=== PATIENT | male | born 1955 | race Caucasian/White ===

== ENCOUNTER 2018-08-20 05:32 | Inpatient (IN) | payer MEDICARE ==
--- NOTE | 2018-08-10 13:38 | HP ---
PREOPERATIVE HISTORY AND PHYSICAL: DATE OF ADMISSION/SURGERY: 08/20/18 ATTENDING PHYSICIAN: Dr. Sybil Avelar.* (DICTATED BY MOOSE BELL) CHIEF COMPLAINT: Right knee pain. HISTORY OF PRESENT ILLNESS: The patient is a 63-year-old male, who underwent right total knee arthroplasty on 11/15/[address] Sybil Avelar. The patient had done fairly well up until the last several months when he developed increased knee pain anteriorly. 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 The patient discussed these findings with Dr. Avelar today and has elected to proceed with revision patellar surgery with Dr. Avelar on 08/20/18 at [facility]. PAST MEDICAL HISTORY: Significant for GERD, hypertension, myasthenia gravis. PAST SURGICAL HISTORY: He has had a cholecystectomy. CURRENT MEDICATIONS: 1. Omeprazole 40 mg daily. 2. Lisinopril 10 mg daily. 3. Baby aspirin daily. 4. Pyridostigmine bromide 60 mg 3 tabs 4 times daily. 5. Mycophenolate 1000 mg p.o. b.i.d. 6. Ranitidine 1 p.o. q.h.s. for heartburn. 7. Prednisone 5 mg p.o. t.i.d. ALLERGIES: To AMOXICILLIN. FAMILY HISTORY: Noncontributory. SOCIAL HISTORY: The patient lives with his . He does not drink alcoholic beverages. He quit smoking cigarettes roughly 3 years ago. He denies use of illicit drugs. REVIEW OF SYSTEMS: The patient has some occasional difficulties with seasonal allergies. He denies recent chest pain, palpitations, recent gastrointestinal or genitourinary discomfort. PHYSICAL EXAMINATION GENERAL: The patient is pleasant, cooperative, alert, oriented x3. CURRENT VITAL SIGNS: Height 69.2 inches, weight 270. BP 136/84, temperature 97.7. BMI 39.6. HEENT: PERRLA. LUNGS: Positive wheezes especially in the upper left lung field. No rale or rhonchi. HEART: Regular rate and rhythm. No murmur auscultated. ABDOMEN: Obese, nontender, nondistended. Normoactive bowel sounds x4 quadrants. EXTREMITIES: Upper extremities within normal limits. Lower Extremities: There is a well-healed right knee incision without any noted effusion, erythema , or significant warmth. He has tenderness to palpation over the anterosuperior aspect of his knee. He also has some mild patellar tendon tenderness. He is able to actively extend his knee with flexion to roughly 110 degrees. There is no gross instability. His calf is soft and nontender. His neurovascular status is intact. He has active dorsiflexion of the right ankle. DIAGNOSTIC STUDIES: Plain films done in the office today reveal evidence of superior migration of the polyethylene patellar component. 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 PLAN: The patient will be admitted under the care of Dr. Sybil Avelar on for revision patellar component right total knee arthroplasty at [facility]. The patient will require preoperative medical clearance prior to surgery. PAT orders and clearance have been set up today. A followup appointment for 10 to 14 days postoperatively is also scheduled. Risks and benefits of the procedure were fully discussed by Dr. Avelar at the visit today. He agrees and elects to proceed. MOOSE BELL [id number]/[facility] #: [id number] CAROLINE
[~2018-08-20 05:32] MED LIST: Buffered Lidocaine 1% SYRIN* 1 ML/SYRINGE INTRADERM ONE; Tranexamic Acid 1,000 MG in NS 0.9% 50 ML* (outpatient use) IV SCH
--- OUTSIDE RECORDS SUMMARY | 2018-08-20 05:36 | XMS REPORT | Continuity of Care Document ---
:1955 External Reference #:[id number] Author Name Kristina Alexander Care Team Providers Name Role Phone José Kamara MD Primary Care Physician Unavailable Payers Date Identification Numbers Payment Provider Subscriber Onset: 2013 Policy Number: [id number] [facility] Durga Aleman Group Number: [id number] [address] [address] Group Name: [id number] [place] [address] PayID: [id number] Policy Number: [id number] [employer] Durga Aleman PayID: [id number] [address] [place] [address] Problems Active Problems Provider Date Derangement of knee Sybil Avelar M.D. Onset: 08/07/2018 Prosthetic joint loosening Sybil Avelar M.D. 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 ETOH Use Denies alcohol use Tobacco Use Start: Unknown End: Unknown Patient is a former smoker Quit 2013 Smoking Status Reviewed: 08/07/18 Patient is a former smoker Quit 2013 Allergies, Adverse Reactions, Alerts Active Allergies Reaction Severity Comments Date Amoxicillin 01/29/2016 Inactive Allergies NKDA 10/26/2013 NKDA 2014 Medications Active Medications SIG Qnty Indications Ordering Date Provider Nexium 1 by mouth 30units Unknown 40mg Packet every day Lisinopril 1 by mouth 90tabs Unknown 10mg Tablets every day Aspirin Ec One tab by Unknown 325mg Tablets DR mouthd daily Pyridostigmine [place] 3 tabs by mouth Unknown 60mg four times Tablets daily Mycophenolate Mofetil 2 by mouth Unknown twice a day 1000mg Tablets Ranitidine Acid [employer] Unknown Presnisone 15mg Unknown History Medications Amoxicillin 4 tab by mouth 4tabs Z96.651 Callie 01/27/2015 - 500mg one hour prior ED [place] 01/28/2016 Tablets to invasive procedure Keflex 1 tablet by 56caps V54.81 Sybil Avelar, 11/30/2014 - 500mg Capsules mouth q6 hours M.D. 12/29/2014 Coumadin 1-3 tab by mouth 90tabs Sybil Avelar, 11/07/2014 - 2mg Tablets as directed at M.D. 10/29/2015 5pm daily Colace 1 by mouth twice 60caps Sybil Avelar, 11/07/2014 - 100mg Capsules a day M.D. 10/29/2015 Percocet 1-2 by mouth 60tabs Sybil Avelar, 11/07/2014 - 5-325mg every 4 to 6 M.D. 12/07/2014 Tablets hours as needed pain [place] 1-2 tab by mouth 60tabs Dennis Austin, 03/21/2014 - 5-325mg Tablets every 4-6 hours M.D. 05/25/2014 as needed pain Metoprolol Succinate 1 by mouth every 90tabs Unknown - ER day 03/20/2014 100mg Tablets ER 24HR Pyridostigmine twice daily Unknown - [place] 08/29/2014 500mg Tablets Prednisone as directed Unknown - 20mg Tablets 08/26/2014 B-12 as directed Unknown - Tablets 08/26/2014 Prednisone As directed Unknown - 08/29/2014 Prednisone daily Unknown - 35mg Tablets 08/06/2018 Medications Administered in Office Medication SIG Qnty Indications Ordering Provider Date Depomedrol 80MG Dennis Austin M.D. 07/07/2014 Injection Vital Signs Date Vital Result Comment 08/07/2018 9:42am Height 69.25 inches 5'9.25" Weight 270.00 lb BP Systolic 136 mmHg BP Diastolic 84 mmHg Body Temperature 97.7 F BMI (Body Mass Index) 39.6 kg/m2 01/29/2016 10:35am Heart Rate 81 /min BP Systolic 142 mmHg BP Diastolic 85 mmHg Pain Level 5 10/30/2015 10:45am Height 70 inches 5'10" Weight 226.00 lb Pain Level 6 BMI (Body Mass Index) 32.4 kg/m2 05/01/2015 1:10pm Height 70 inches 5'10" Weight 226.00 lb Pain Level 4 BMI (Body Mass Index) 32.4 kg/m2 02/27/2015 2:01pm Height 70 inches 5'10" Weight 226.00 lb Pain Level 4 BMI (Body Mass Index) 32.4 kg/m2 01/27/2015 9:52am Height 70 inches 5'10" Weight 226.00 lb Pain Level 5 BMI (Body Mass Index) 32.4 kg/m2 12/30/2014 1:23pm Height 70 inches 5'10" Weight 226.00 lb Pain Level 3 BMI (Body Mass Index) 32.4 kg/m2 12/08/2014 1:53pm Height 70 inches 5'10" Weight 226.00 lb Pain Level 4 BMI (Body Mass Index) 32.4 kg/m2 11/30/2014 3:29pm Height 70 inches 5'10" Weight 226.00 lb Body Temperature 97.3 F BMI (Body Mass Index) 32.4 kg/m2 11/07/2014 1:15pm Height 70 inches 5'10" Weight 226.00 lb Heart Rate 75 /min BP Systolic 113 mmHg BP Diastolic 80 mmHg BMI (Body Mass Index) 32.4 kg/m2 08/29/2014 11:22am Height 70 inches 5'10" Weight 226.00 lb Heart Rate 64 /min BP Systolic 126 mmHg BP Diastolic 83 mmHg Pain Level 6 BMI (Body Mass Index) 32.4 kg/m2 08/08/2014 10:06am Height 70 inches 5'10" Weight 226.00 lb Pain Level 5 BMI (Body Mass Index) 32.4 kg/m2 07/07/2014 2:53pm Height 70 inches 5'10" Weight 226.00 lb Body Temperature 97.7 F Pain Level 6 BMI (Body Mass Index) 32.4 kg/m2 05/26/2014 12:30pm Height 70 inches 5'10" Weight 226.00 lb Pain Level 2 BMI (Body Mass Index) 32.4 kg/m2 04/12/2014 3:01pm Height 70 inches 5'10" Weight 226.00 lb Pain Level 7 BMI (Body Mass Index) 32.4 kg/m2 03/21/2014 2:57pm Height 70 inches 5'10" Weight 226.00 lb Heart Rate 67 /min BP Systolic 132 mmHg BP Diastolic 78 mmHg BMI (Body Mass Index) 32.4 kg/m2 12/23/2013 9:09am Height 70 inches 5'10" Weight 248.00 lb Heart Rate 80 /min BP Systolic 137 mmHg BP Diastolic 94 mmHg BMI (Body Mass Index) 35.6 kg/m2 12/15/2013 1:51pm Height 70 inches 5'10" Weight 258.00 lb Heart Rate 88 /min BMI (Body Mass Index) 37.0 kg/m2 11/16/2013 8:47am Heart Rate 92 /min BP Systolic Sitting 130 mmHg BP Diastolic Sitting 90 mmHg 10/26/2013 8:58am Height 70 inches 5'10" Weight 258.00 lb Heart Rate 88 /min BP Systolic Sitting 140 mmHg BP Diastolic Sitting 90 mmHg BMI (Body Mass Index) 37.0 kg/m2 Results Test Date Facility Test Result H/L Range Note Xray 08/07/2018 [facility] Knee 3 <pending> [address] [place] [address] [phone] Laboratory test 11/24/2014 [facility] Inr/Protime 1.13 High 0.78-1.[address] [place] [address] [phone] Laboratory test 11/21/2014 [facility] Inr/Protime 1.29 High 0.78-1.07 finding [address] [place] [address] [phone] Urinalysis 11/09/2014 [facility] Urine Color Yellow N Profile [address] [place] [address] [phone] Urine Appearance Clear N Urine Specific [place] 1.010 N 1.010-1.030 Urine pH 5.0 N 5-9 Urine Urobilinogen Negative N Negative Urine Ketones Negative N Negative Urine Protein Negative N Negative Urine Leukocytes Negative N Negative Urine Blood Negative N Negative Urine Nitrite Negative N Negative Urine Bilirubin Negative N Negative Urine Glucose Negative N Negative CBC No Diff 11/07/2014 [facility] White Blood 10.8 10^3/uL N 4.8-10.8 [address] [facility] [place] [address] [phone] Red Blood Count 5.16 10^6/uL N 4.0-5.4 Hemoglobin 15.9 g/dL N 14.0-18.0 Hematocrit 48 % N 42-52 Mean Corpuscular Volume 93 fL N 80-94 Mean Corpuscular Hemoglobin 31 pg N 27-31 Mean Corpuscular HGB Conc 33 g/dL N 31-36 Red Cell Distribution Width 15 % N 10.5-15 Platelet Count 191 10^3/uL N 150-450 Mean Platelet Volume 9 um3 N 7.4-10.4 Basic Metabolic Panel 11/07/2014 [facility] Sodium 137 mmol/L N 133-145 [address] [place] [address] [phone] Potassium 4.2 mmol/L N 3.5-5.0 Chloride 106 mmol/L N 101-111 Co2 Carbon Dioxide 24 mmol/L N 22-32 Anion Gap 7 mmol/L N 2-11 Glucose 91 mg/dL N 70-100 Blood Urea Nitrogen 21 mg/dL N 6-24 Creatinine 0.83 mg/dL N 0.67-1.17 BUN/Creatinine Ratio 25.3 High 8-20 Calcium 9.5 mg/dL N 8.6-10.3 Egfr Non- 95.2 N >60 Egfr 122.4 N >60 2 Inr/Protime 11/07/2014 [facility] Inr 0.98 N 0.78-1.07 [address] [place] [address] [phone] Type & Screen 11/07/2014 [facility] Patient Blood O Positive N [address] [facility] [place] [address] [phone] Antibody Screen NEGATIVE N Xray 08/08/2014 [facility] Knee [address] <pending> [address] [place] [address] [phone] 1 ORDERED 11/18/14 EXPIRES 05/21/15 2 Because ethnic data is not always readily available, this report includes an eGFR for both -Americans and non- Americans. The National Kidney Disease Education Program (NKDEP) does not endorse the use of the MDRD equation for patients that are not between the ages of 18 and 70, are , have extremes of body size, muscle mass, or nutritional status, or are non- or non-. According to the National Kidney Foundation, irrespective of diagnosis, the stage of the disease is based on the level of kidney function: Stage Description GFR(mL/min/1.73 m(2)) 1 Kidney damage with normal or decreased GFR 90 2 Kidney damage with mild decrease in GFR 60-89 3 Moderate decrease in GFR 30-59 4 Severe decrease in GFR 15-29 5 Kidney failure <15 (or dialysis) Procedures Date Code Description Status 11/15/2014 93021 TKR Total Knee Replacement Completed 11/15/2014 79457 TKR Total Knee Replacement Completed 11/07/2014 29721 EKG, Interpretation Only Completed 07/07/2014 45553 Inject/Drain Joint/Bursa Major W/O US Completed 04/01/2014 47203 Arthroscopy,Knee,Meniscectomy Medial Or Lateral Completed 04/01/2014 97669 Arthroscopy,Knee,Meniscectomy Medial Or Lateral Completed 12/15/2013 13797 Xray Knee 3 Views Completed Encounters Type Date Location Provider Dx Diagnosis Office Visit 01/29/2016 Brooke Carvajal.651 Presence of right 10:30a [facility] M.D. artificial knee joint M25.561 Pain in right knee G70.00 Myasthenia gravis without (acute) exacerbation Office Visit 10/30/2015 10:15a Orthopedic Sosa Roth96.651 Presence of right Services Of M.D. artificial knee C.M.A. joint Z47.1 Aftercare following joint replacement surgery Office Visit 05/01/2015 1:15p Orthopedic Brooke Roth.651 Presence of right Services Of M.D. artificial knee C.M.A. joint Office Visit 02/27/2015 2:00p Sosa Carvajal96.651 Presence of right Services Of M.D. artificial knee C.M.A. joint Z47.1 Aftercare following joint replacement surgery Office Visit 11/17/2014 10:55a Pulmonology And Chantel 327.23 Obstructive Sleep Sleep Services Of MD Roberto Apnea [facility] Pediatric Office Visit 11/16/2014 10:19a [facility] Scott Godwin, V43.65 Knee Replacement Assoc,pc D.O. By Other Means Hospitalists 358.00 myasthenia gravis without (acute) exacerbation 401.9 Hypertension Unspec 278.00 Obesity Unspec Office Visit 11/15/2014 10:18a [facility] Scott Citlali, V43.65 Knee Replacement Assoc,pc D.O. By Other Means Hospitalists 358.00 myasthenia gravis without (acute) exacerbation 278.00 Obesity Unspec 401.9 Hypertension Unspec Office Visit 08/29/2014 11:30a Orthopedic Sybil 715.96 Osteoarthrosis Services Of Goyo Avelar Unspec Genlzd Or C.M.A. Localized Lower Leg 836.0 Dislocation Knee Tear Of Medial Cartilage Or Meniscus [facility] Office Visit 08/08/2014 Emiliano Padilla 715.96 Osteoarthrosis 9:00a Services Of KAREN Tejeda Unspec Genlzd Or C.M.A. Localized Lower Leg Office Visit 07/07/2014 Orthopedic Dennis Austin 715.16 Osteoarthrosis 2:45p Services Of Goyo Localized Prim Lower [facility]. Leg Office Visit 12/23/2013 Emiliano Austin 836.0 Dislocation Knee 9:30a Services Of Goyo Tear Of Medial C.M.A. Cartilage Or Meniscus Curren 836.0 Dislocation Knee Tear Of Medial Cartilage Or Meniscus Curren Office Visit 12/15/2013 2:15p Orthopedic Sybil Avelar 836.0 Dislocation Knee Services Of [facility]oyo Tear Of Medial C.M.A. Cartilage Or Meniscus Curren 727.49 Cyst Synovial Other Office Visit 11/16/2013 Orthopedic Harjeet 924.11 Contusion Knee 8:45a Services Of Amee Royal M.D. [facility] [place] Office Visit 10/26/2013 Emiliano Cosby 715.96 Osteoarthrosis 8:45a Services Of Amee Royal M.D. Unspec Genlzd Or AT [place] Localized Lower Leg Plan of Treatment Future Appointment(s):08/31/2018 1:45 pm 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
--- OUTSIDE RECORDS SUMMARY | 2018-08-20 05:36 | XMS REPORT | Continuity of Care Document ---
:1955 External Reference #:[id number] Author Name Lucinda Galaviz Care Team Providers Name Role Phone José Kamara MD Primary Care Physician Unavailable Payers Date Identification Numbers Payment Provider Subscriber Onset: 2013 Policy Number: [id number] [facility] Kayley Bernabe Group Number: [id number] [address] [address] Group Name: [id number] [place] [address] PayID: [id number] Policy Number: [id number] [employer] Kayley Bernabe PayID: [id number] [address] [place] [address] Problems Active Problems Provider Date Derangement of knee Sybil Avelar M.D. Onset: 08/07/2018 Prosthetic joint loosening Sybil Avelar M.D. 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 12/07/2014 Tablets hours as needed pain [place] 1-2 tab by mouth 60tabs Dennis Austin, 03/21/2014 - 5-325mg Tablets every 4-6 hours M.D. 05/25/2014 as needed pain Metoprolol Succinate 1 by mouth every 90tabs Unknown - ER day 03/20/2014 100mg Tablets ER 24HR Pyridostigmine twice daily Unknown - [place] 08/29/2014 500mg Tablets Prednisone as directed Unknown [...] Date Facility Test Result H/L Range Note Urinalysis Profile 08/11/2018 [facility] Urine Color Yellow [address] [place] [address] [phone] Urine Appearance Clear Urine Specific [place] 1.009 Low 1.010-1.030 Urine pH 6.0 N 5-9 Urine Urobilinogen Negative Negative Urine Ketones Negative Negative Urine Protein Negative Negative Urine Leukocytes Negative Negative Urine Blood Negative Negative Urine Nitrite Negative Negative Urine Bilirubin Negative Negative Urine Glucose Negative Negative CBC Auto Diff 08/11/2018 [facility] White Blood 9.6 10^3/uL N 3.5-10.[address] [place] [address] [phone] Red Blood Count 4.68 10^6/uL N 4.18-5.48 Hemoglobin 11.3 g/dL Low 14.0-18.0 Hematocrit 37 % Low 42-52 Mean Corpuscular Volume 78 fL Low 80-94 Mean Corpuscular Hemoglobin 24 pg Low 27-31 Mean Corpuscular HGB Conc 31 g/dL N 31-36 Red Cell Distribution Width 19 % High 10.5-15 Platelet Count 258 10^3/uL N 150-450 Mean Platelet Volume 8.4 fL N 7.4-10.4 Abs Neutrophils 7.6 10^3/uL N 1.5-7.7 Abs Lymphocytes 1.3 10^3/uL N 1.0-4.8 Abs Monocytes 0.6 10^3/uL N 0-0.8 Abs Eosinophils 0.1 10^3/uL N 0-0.6 Abs Basophils 0.0 10^3/uL N 0-0.2 Abs Nucleated RBC 0.0 10^3/uL Granulocyte % 79.1 % Lymphocyte % 13.7 % Monocyte % 5.9 % Eosinophil % 1.0 % Basophil % 0.3 % Nucleated Red Blood Cells % 0.0 Inr/Protime 08/11/2018 [facility] Inr 1.06 N 0.82-1.09 1 [address] [place] [address] [phone] Laboratory test 08/11/2018 [facility] Partial 30.6 seconds N 26.0-36.3 finding [address] [facility] [place] [address] PTT [phone] Comp Metabolic 08/11/2018 [facility] Sodium 140 mmol/L N 135- 145 Panel [address] [place] [address] [phone] Potassium 4.5 mmol/L N 3.5-5.0 Chloride 103 mmol/L N 101-111 Co2 Carbon Dioxide 31 mmol/L N 22-32 Anion Gap 6 mmol/L N 2-11 Glucose 89 mg/dL N 70-100 Blood Urea Nitrogen 17 mg/dL N 6-24 Creatinine 0.87 mg/dL N 0.67-1.17 BUN/Creatinine Ratio 19.5 N 8-20 Calcium 9.6 mg/dL N 8.6-10.3 Total Protein 6.6 g/dL N 6.4-8.9 Albumin 4.2 g/dL N 3.2-5.2 Globulin 2.4 g/dL N 2-4 Albumin/Globulin Ratio 1.8 N 1-3 Total Bilirubin 0.60 mg/dL N 0.2-1.0 Alkaline Phosphatase 78 U/L N 34-104 Alt 26 U/L N 7-52 Ast 23 U/L N 13-39 Egfr Non- 88.9 >60 Egfr 107.6 >60 2 Type & Screen 08/11/2018 [facility] Patient Blood Type O Positive [address] [place], [place] [address] [phone] Antibody Screen NEGATIVE Urine Culture And 08/11/2018 [facility] Urine SEE RESULT [address] Culture [address]OW [place], [place] [address] [phone] Xray 08/07/2018 [facility] Knee 3 Views <pending> [address] [place] [address] [phone] Laboratory test 11/24/2014 [facility] Inr/Protime 1.13 High 0.78- [address] [place], [place] [address] [phone] Laboratory test 11/21/2014 [facility] Inr/Protime 1.29 High 0.78- finding [address] [place] [address] [phone] Urinalysis Profile 11/09/2014 [facility] Urine Color Yellow N [address] [place] [address] [phone] Urine Appearance Clear N Urine Specific [place] 1.010 N 1.010-1.030 Urine pH 5.0 N 5-9 Urine Urobilinogen Negative N Negative Urine Ketones Negative N Negative Urine Protein Negative N Negative Urine Leukocytes Negative N Negative Urine Blood Negative N Negative Urine Nitrite Negative N Negative Urine Bilirubin Negative N Negative Urine Glucose Negative N Negative Type & Screen 11/07/2014 [facility] Patient Blood Type O Positive N [address] [place], [place] [address] [phone] Antibody Screen NEGATIVE N Inr/Protime 11/07/2014 [facility] Inr 0.98 N 0.78-1.[address] [place] [address] [phone] Basic Metabolic 11/07/2014 [facility] Sodium 137 mmol/L N 133- [address] [place] [address] [phone] Potassium 4.2 mmol/L N 3.5-5.0 Chloride 106 mmol/L N 101-111 Co2 Carbon Dioxide 24 mmol/L N 22-32 Anion Gap 7 mmol/L N 2-11 Glucose 91 mg/dL N 70-100 Blood Urea Nitrogen 21 mg/dL N 6-24 Creatinine 0.83 mg/dL N 0.67-1.17 BUN/Creatinine Ratio 25.3 High 8-20 Calcium 9.5 mg/dL N 8.6-10.3 Egfr Non- 95.2 N >60 Egfr 122.4 N >60 5 CBC No Diff 11/07/2014 [facility] White Blood 10.8 10^3/uL N 4.8-10.[address] [place] [address] [phone] Red Blood Count 5.16 10^6/uL N 4.0-5.4 Hemoglobin 15.9 g/dL N 14.0-18.0 Hematocrit 48 % N 42-52 Mean Corpuscular Volume 93 fL N 80-94 Mean Corpuscular Hemoglobin 31 pg N 27-31 Mean Corpuscular HGB Conc 33 g/dL N 31-36 Red Cell Distribution Width 15 % N 10.5-15 Platelet Count 191 10^3/uL N 150-450 Mean Platelet Volume 9 um3 N 7.4-10.4 Xray 08/08/2014 [facility] Knee 3 Views [address] <pending> [address] [place] [address] [phone] 1 Standard intensity warfarin therapeutic range: 2.0-3.0 High intensity warfarin therapeutic range: 2.5-3.5 2 Because ethnic data is not always [...] 15-29 5 Kidney failure <15 (or dialysis) 3 SEE RESULT BELOW Name: KAYLEY BERNABE : [address]: Sybil Avelar MD Acct: [id number] Unit: [id number] AGE: 63 Location: [facility] Re08/11/18 SEX: M Status: REG REF SPEC: [id number] JENNIFER: 08/11/[address] [facility] [address]: Sybil Avelar MD REQ: [id number] RECD: 08/11/18 STATUS: ALY BRUNSON DR: José Kamara MD _ SOURCE: URINE SPDESC: ORDERED: Urine Culture QUERIES: Urine Source: Random Procedure Result Reported Site Urine Culture Final 08/12/18- 1211 ML No Growth (<1,000 CFU/mL) * ML - Main Lab . END OF REPORT DEPARTMENT OF PATHOLOGY, [address] [place] [address] Inocente Garces M.D. Director [facility] # [id number] 4 ORDERED 11/18/14 EXPIRES 05/21/15 5 Because ethnic data is not always readily [...] dialysis) Procedures Date Code Description Status 11/15/2014 07430 TKR Total Knee Replacement Completed 11/15/2014 47296 TKR Total Knee Replacement Completed 11/07/2014 37883 EKG, Interpretation Only Completed 07/07/2014 44646 Inject/Drain Joint/Bursa Major W/O US Completed 04/01/2014 45506 Arthroscopy,Knee,Meniscectomy Medial Or Lateral Completed 04/01/2014 06690 Arthroscopy,Knee,Meniscectomy Medial Or Lateral Completed 12/15/2013 69774 Xray Knee 3 Views Completed Encounters Type Date Location Provider Dx Diagnosis Office Visit 01/29/2016 Orthopedic Sosa Roth96.651 Presence of right 10:30a [facility] M.D. artificial knee joint M25.561 Pain in right knee G70.00 Myasthenia gravis without (acute) exacerbation Office Visit 10/30/2015 10:15a Orthopedic Brooke Roth.651 Presence of right Services [facility] M.D. artificial knee [facility] joint Z47.1 Aftercare following joint replacement surgery Office Visit 05/01/2015 1:15p Brooke Carvajal.651 Presence of right Services Of M.D. artificial knee [facility] joint Office Visit 02/27/2015 2:00p Brooke Carvajal.651 Presence of right Services Of M.D. artificial knee [facility] joint Z47.1 Aftercare following joint replacement surgery Office Visit 11/17/2014 10:55a Pulmonology And Chantel 327.23 Obstructive Sleep Sleep Services Of MD Roberto Apnea [facility] [employer] [facility] Office Visit 11/16/2014 10:19a [facility] Scott Godwin V43.65 Knee Replacement Assoc,pc D.O. By Other Means Hospitalists 358.00 myasthenia gravis without (acute) exacerbation 401.9 Hypertension Unspec 278.00 Obesity Unspec Office Visit 11/15/2014 10:18a [facility] Scott Godwin V43.65 Knee Replacement Assoc,pc D.O. By Other Means Hospitalists 358.00 myasthenia gravis without (acute) exacerbation 278.00 Obesity Unspec 401.9 Hypertension Unspec Office Visit 08/29/2014 11:30a Orthopedic Sybil 715.96 Osteoarthrosis Services Of Goyo Avelar Unspec Genlzd Or [facility] Localized Lower Leg 836.0 Dislocation Knee Tear Of Medial Cartilage Or Meniscus Curren Office Visit 08/08/2014 Orthopedic Valerie 715.96 Osteoarthrosis 9:00a [facility] Of KAREN Tejeda Unspec Genlzd Or [facility] Localized Lower Leg Office Visit 07/07/2014 Orthopedic Dennis Austin, 715.16 Osteoarthrosis 2:45p Services Of M.D. Localized Prim Lower [facility] Leg Office Visit 12/23/2013 Orthopedic Dennis Austin, 836.0 Dislocation Knee 9:30a Services Of M.D. Tear Of Medial [facility] Cartilage Or Meniscus Curren 836.0 Dislocation Knee Tear Of Medial Cartilage Or Meniscus Curren Office Visit 12/15/2013 2:15p Orthopedic Sybil Avelar 836.0 Dislocation Knee Services Of M.D. Tear Of Medial [facility] Cartilage Or Meniscus Curren 727.49 Cyst Synovial Other Office Visit 11/16/2013 Orthopedic Harjeet 924.11 Contusion Knee 8:45a Services Of Amee Royal M.D. AT [place] Office Visit 10/26/2013 Orthopedic Harjeet 715.96 Osteoarthrosis 8:45a [facility] Amee Royal M.D. Unspec [facility] Or [facility] [place] Localized Lower Leg Plan of Treatment Future Appointment(s):08/20/2018 7:30 am - Zheng Escobar PA-C at [facility]08/20/2018 7:30 am - MOOSE Montesinos at [facility]08/20/2018 7:30 am - Sybil Avelar M.D. at [facility]08/31/2018 1:45 pm - Sybil Avelar M.D. 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
[2018-08-20] MEDS ORDERED: Lactated Ringers 1000 ML Bag* 1,000 ML IV SCH ×2 (06:00→11:00)
[2018-08-20] MEDS ORDERED: Clindamycin 900 MG IVPREMIX(* 900 MG/50 ML SDV IV ONE (06:05)
[2018-08-20] MEDS ORDERED: Buffered Lidocaine 1% SYRIN* 1 ML/SYRINGE INTRADERM ONE (06:05)
[2018-08-20] MEDS ORDERED: ROPIVACAINE 5 MG/ML 30 ML BTL (0.5%) ONE ×2 (06:58→07:10)
[2018-08-20] MEDS ORDERED: Albuterol/Ipratropium NEB.SOL* Albuterol 2.5 MG/Ipratropium 0.5 MG 3 ML INH ONE (07:06)
[2018-08-20] MEDS ORDERED: Propofol* 10 MG/ML 20 ML BTL ONE (07:08)
[2018-08-20] MEDS ORDERED: Propofol* 500 MG/50 ML BTL ONE (07:09)
[2018-08-20] MEDS ORDERED: KETAMINE HCL* 50 MG/ML 10 ML VIAL ONE (07:09)
[2018-08-20] MEDS ORDERED: Lidocaine 2% PF * 5 ML VIAL ONE (07:09)
[2018-08-20] MEDS ORDERED: Dexmedetomidine* 200 MCG/2 ML 2 ML VIAL ONE (07:10)
[2018-08-20] MEDS ORDERED: Midazolam* 1 MG/ML 2 ML VIAL (2 MG) ONE (07:10)
[2018-08-20] MEDS ORDERED: Bupivacaine 0.5% SDV PF* 30ML VIAL ONE (07:10)
[2018-08-20] MEDS ORDERED: Albuterol/Ipratropium NEB.SOL* Albuterol 2.5 MG/Ipratropium 0.5 MG 3 ML ONE (07:16)
[2018-08-20] MEDS ORDERED: oxyCODONE TAB* 5 MG TAB PO PRN (08:47)
[2018-08-20] MEDS ORDERED: Naloxone* 0.4 MG/ML 1 ML VIAL IV PRN (08:47)
[2018-08-20] MEDS ORDERED: Ketorolac INJ* 30 MG/ML 1 ML VIAL IV PRN (08:47)
[2018-08-20] MEDS ORDERED: HYDROmorphone INJ1* 1 MG/ML SYRINGE IV PRN (08:47)
[2018-08-20] MEDS ORDERED: Acetaminophen IV 1GM/100ML * 1,000 MG/100 ML VIAL IVPB ONE (08:47)
[2018-08-20] MEDS ORDERED: Ondansetron INJ* 2 MG/ML VIAL IV PRN ×2 (08:47→10:03)
[2018-08-20] MEDS ORDERED: Hydrocortisone INJ* 100 MG VIAL IV ONE (09:00)
[2018-08-20] MEDS ORDERED: Bisacodyl SUPP* 10 MG SUPP PR PRN (10:03)
[2018-08-20] MEDS ORDERED: Polyethylene Glycol 3350* 17 GM PACKET PO PRN (10:03)
[2018-08-20] MEDS ORDERED: Magnesium Hydroxide LIQ* 30 ML UDC PO PRN (10:03)
[2018-08-20] MEDS ORDERED: oxyCODONE/Acetamin 5/325 MG* TAB PO PRN (10:03)
[2018-08-20] MEDS ORDERED: Ondansetron TAB* 4 MG PO PRN (10:03)
[2018-08-20] MEDS ORDERED: Morphine 4 MG/ML VIAL (1 ml) 4 MG/ML VIAL IV PRN (10:03)
[2018-08-20] MEDS ORDERED: diPHENhydraMINE IV* 50 MG/ML 1 ml VIAL (BENADRYL) IV PRN (10:03)
[2018-08-20] MEDS ORDERED: Acetaminophen TAB* 325 MG PO SCH (11:00)
[2018-08-20] MEDS ORDERED: Acetaminophen IV 1GM/100ML * 100 ML ONE (11:03)
--- NOTE | 2018-08-20 11:10 | PN ---
Progress Note - Progress Note Date of Service: 08/20/18 Note: resting comfortably in recovery, no complaints; able to dorsi felx/plantar flex , intact sensation, 2+ DP pulse
[2018-08-20] MEDS: predniSONE TAB* 5 MG PO SCH ×2 (11:14→17:27)
[2018-08-20] MEDS: Pyridostigmine TAB* 60 MG PO SCH ×3 (11:15→22:10)
[2018-08-20] MEDS ORDERED: Albuterol HFA INHALER* 8 gm MDI INH PRN ×2 (11:55→11:59)
[2018-08-20] MEDS ORDERED: ALBUTEROL MDI INH PRN (12:16)
[2018-08-20] MEDS: Pantoprazole TAB * 40 MG TAB PO SCH (12:21)
--- NOTE | 2018-08-20 13:36 | CONS ---
CONSULTATION REPORT: DATE OF CONSULT: 08/20/18 REQUESTING PROVIDER: Dr. Sybil Avelar.* REASON FOR CONSULT: Co-management of chronic medical conditions. HISTORY OF PRESENT ILLNESS: Durga Aleman is a 63-year-old white male with past medical history of myasthenia gravis, hypertension, and Oglesby's esophagitis, who presents for elective right total knee revision surgery with Dr. Avelar today. The patient had right total knee arthroplasty in [address] Avelar and recently had been experiencing right anterior knee pain. He was found to have superior migration of the right patellar component of his arthroplasty and elected for surgery today. Dr. Avelar has consulted Hospital Medicine for co- management of chronic medical conditions. The patient is feeling well postoperatively and is on the hospital floor. The patient denies chest pain, difficulty breathing, abdominal pain, nausea, vomiting. He feels that his knee pain is well controlled. The patient is unsure if he has been diagnosed with COPD by his primary care provider. There is no documentation of this in [facility]; however, the patient has been prescribed an albuterol inhaler. The patient had a chest x-ray on 08/18/18 ordered by his primary care provider, which was read by the radiologist as faint opacities within the lung bases, which most likely represent subsegmental atelectasis. PAST MEDICAL HISTORY: 1. Myasthenia gravis. 2. Hypertension. 3. Oglesby's esophagus. 4. Hyperlipidemia. 5. Allergic rhinitis. PAST SURGICAL HISTORY: 1. Right TKA in 2014. 2. Cholecystectomy. 3. Hemorrhoid surgery. HOME MEDICATIONS: 1. Omeprazole 40 mg daily. 2. Lisinopril 10 mg daily. 3. Aspirin 81 daily. 4. Pyridostigmine bromide 30 mg 3 tabs 4 times daily. 5. Mycophenolate 1000 mg p.o. b.i.d. 6. Ranitidine 1 p.o. q.h.s. for heartburn. 7. Prednisone 5 mg p.o. t.i.d. ALLERGIES: The patient's allergy list includes AMOXICILLIN and ERYTHROMYCIN due to his past medical history of myasthenia gravis. FAMILY MEDICAL HISTORY: Mother with breast cancer and COPD. Father had Alzheimer's and other medical conditions that are unknown to the patient. SOCIAL HISTORY: The patient has a and 2 children. He quit smoking approximately 4.5 years ago. The patient had approximately 40- to 45-year history of smoking, and at the peak of smoking, smoked 4 packs per day. The patient denies alcohol use and illicit drug use. REVIEW OF SYSTEMS: The patient notes nasal congestion today. An 11-point review of systems was completed. All other systems are negative. PHYSICAL EXAM: Vital Signs: Temperature 97.5, pulse 62, respiratory rate 16, oxygen saturation 96% on room air, blood pressure 133/73. General: An obese white male, lying upright in hospital bed, appearing in no acute distress, at bedside. Head: Normocephalic, atraumatic. Eyes: PERRL. Sclerae anicteric. ENT: Mucous membranes moist. Neck: Supple without JVD. Cardio: Regular rate and rhythm without murmurs, rubs, or gallops. Lungs: Faint crackles in left lung base. Abdomen: Normoactive bowel sounds x4 quadrants. Abdomen is soft, nontender, nondistended. Abdomen is obese. Extremities: No clubbing, edema, or cyanosis. Neuro: Sensation to light touch is intact throughout. Strength is 5/5 in all extremities. The patient is alert and oriented x3. Skin: Skin is warm, dry, and intact. LABORATORY DATA: None at this time. ASSESSMENT AND PLAN: Durga Aleman is a 63-year-old male with past medical history significant for myasthenia gravis, hypertension, and Oglesby's esophagus , who presents for elective right total knee revision today with Dr. Avelar. Hospital Medicine has been consulted for co-management of chronic medical conditions. 1. Myasthenia gravis. The patient is to continue his home oral prednisone and pyridostigmine. The patient received 50 mg IV hydrocortisone during his procedure as stress dosing. We will continue to monitor respiratory status. 2. Hypertension. The patient takes lisinopril at home and we will continue this with holding parameters to hold for systolic blood pressure less than 150. 3. Oglesby's esophagus. Continue home omeprazole and ranitidine. 4. Atelectasis. The patient was noted to have likely atelectasis on chest x- ray prior to surgery. Incentive spirometry is already ordered and was encouraged at bedside today. We will continue to monitor. We will continue the patient's home albuterol. It appears the patient does not carry diagnosis of chronic obstructive pulmonary disease. The report of the x-ray is in the electronic medical record, but the film itself is not. There is, however, a film from 08/11/18 in EMR, which again demonstrates small bibasilar infiltrates suggestive of atelectasis and less likely pneumonia. The patient does not have clinical signs of pneumonia at this time. 5. Status post right total knee revision. Management per Orthopedic Surgery. 6. DVT prophylaxis: Eliquis per Orthopedic Surgery. 7. Disposition: Per Orthopedic Surgery. Thank you for allowing us to participate in the care of this patient. We will follow during this admission. MOOSE OVALLE [id number]/[facility] #: [id number] MTDMike
[2018-08-20] MEDS: oxyCODONE TAB* 5 MG TAB PO PRN ×2 (14:53→21:09)
[2018-08-20] MEDS: Acetaminophen TAB* 325 MG PO SCH (15:33)
[2018-08-20] MEDS: Clindamycin 600 MG IVPREMIX(* 600 MG/50 ML SDV IV SCH (15:43)
[2018-08-20] MEDS: Mycophenolate Mofetil TAB(*) 500 MG PO SCH (17:27)
[2018-08-20] MEDS: Magnesium Hydroxide LIQ* 30 ML UDC PO SCH (20:55)
[2018-08-20] MEDS: Docusate CAP* 100 MG PO SCH (20:55)
[2018-08-20] MEDS ORDERED: Famotidine TAB* 20 MG PO SCH (22:00)
[2018-08-20] MEDS ORDERED: Aspirin EC TAB* 81 MG TAB.EC PO SCH (22:00)
[2018-08-20] MEDS ORDERED: Lisinopril TAB* 10 MG PO SCH (22:00)
[2018-08-21] MEDS: oxyCODONE TAB* 5 MG TAB PO PRN ×3 (01:00→14:10)
[2018-08-21] MEDS: Acetaminophen TAB* 325 MG PO SCH ×2 (01:01→08:18)
[2018-08-21] MEDS: Clindamycin 600 MG IVPREMIX(* 600 MG/50 ML SDV IV SCH ×2 (01:02→08:19)
[2018-08-21] MEDS: traMADol TAB* 50 MG PO PRN ×2 (01:05→12:12)
[2018-08-21 06:33] LABS: Hematocrit 32 % (42-52); Hemoglobin 9.9 g/dL (14.0-18.0); Mean Platelet Volume 8.7 fL (7.4-10.4); Platelet Count 213 10^3/uL (150-450)
[2018-08-21 06:46] LABS: BUN/Creatinine Ratio 18.6 (8-20); Calcium 8.8 mg/dL (8.6-10.3); EGFR African American 138.3 (>60); EGFR Non-African American 114.3 (>60); Potassium 3.8 mmol/L (3.5-5.0)
[2018-08-21] MEDS: Pyridostigmine TAB* 60 MG PO SCH ×2 (07:08→12:08)
[2018-08-21] MEDS: predniSONE TAB* 5 MG PO SCH ×2 (07:08→12:08)
[2018-08-21] MEDS: Mycophenolate Mofetil TAB(*) 500 MG PO SCH (07:08)
[2018-08-21] MEDS: Docusate CAP* 100 MG PO SCH (08:19)
[2018-08-21] MEDS: Magnesium Hydroxide LIQ* 30 ML UDC PO SCH (08:25)
[2018-08-21] MEDS ORDERED: Apixaban* 2.5 MG TAB PO SCH (09:00)
--- NOTE | 2018-08-21 09:03 | OP ---
OPERATIVE NOTE: DATE OF OPERATION: 08/20/18 DATE OF : 57 ATTENDING SURGEON: Sybil Avelar MD TANK OFFICER: MOOSE Heller Ms. did help throughout the procedure with preparation of the leg, wound retraction, manipulation of the knee, and wound closure. ANESTHESIOLOGIST: Dr. Brown. ANESTHESIA: Spinal. PRE-OP DIAGNOSIS: Right knee patellar component loosening and failure. POST-OP DIAGNOSES: Right knee patellar component loosening and failure, abundant scar tissue formation, arthrofibrosis. OPERATIVE PROCEDURE: Revision right total knee arthroplasty - patellar component with wide scar excision. TOURNIQUET TIME: 24 minutes. ESTIMATED BLOOD LOSS: 100 cc. COMPLICATIONS: None. SPECIMENS: Patellar component sent to Pathology, scar tissue from the right knee joint capsule and multiple culture swabs sent to Microbiology for cultures and sensitivities. HARDWARE USED: Patellar placed was a 32 mm Saida II Turk and Nephew 3 peg all poly patellar. BRIEF HISTORY/INDICATIONS: Mr. Aleman is a 63-year-old gentleman who had an uncomplicated right total knee arthroplasty in October of 2014. He rehabed without complication. The patient has had multiple falls over the last year. He presented to clinic with approximately 1 year of pain in the peripatellar region. Radiographs were obtained which did show complete loosening and failure of the patellar component. The patellar component was in the suprapatellar pouch and no longer in the proper position. The patient and I discussed that I recommended surgery to remove the patellar and to revise the patellar with a new implant. The patient was preoperatively cleared. He understood the risks of surgery included but were not limited to bleeding, infection, damage to nearby structures, continued pain, need for further surgery, failure of the component, anesthesia complications, stroke, heart attack, blood clot, and . He wished to proceed. INTRAOPERATIVE FINDINGS: Intraoperatively, the patient was noted to have extensive scar formation in the entire joint including the suprapatellar pouch, medial and lateral gutter, and patellar tendon region. The patellar component was completely loose. The femoral and tibial components were not loose. DESCRIPTION OF PROCEDURE: The patient was met in Preanesthesia Unit and consent was signed, placed in the chart. The right knee was marked. The patient was taken to the operating room and placed under anesthesia. A Starkey catheter was placed. Tourniquet was placed on the right thigh. Right lower extremity was prepped and draped in the usual sterile fashion. Preop time-out was made to correctly identify the patient side and site. Appropriate perioperative antibiotics were given within 1 hour of incision. The patient's prior incision was opened up and sharply dissected down to the extensor mechanism. New 10-blade was used to make a standard medial parapatellar arthrotomy. There was extensive scar tissue formation in the joint. Multiple culture swabs were used to obtain joint fluid. There was no obvious purulence or infection. A wide scar excision was performed using electrocautery and Reyna. Scar tissue was removed from the suprapatellar pouch where the patellar component was easily removed. Patellar component had minimal wear on the articular surface. The patellar component appeared to be completely sheared at the cement bone junction with complete loosening. Scar tissue was removed from the suprapatellar pouch, medial gutter, lateral gutter, and around the patellar tendon. The knee was flexed up. Implants were checked for any loosening and there was no obvious loosening of the femoral or tibial component. The polyethylene insert had no visible wear. Patella was everted. Oscillating saw was used to make a clean up bone cut. There was bleeding subchondral bone. Patella was sized to a size 32. Size 32 3 -peg all poly patellar was cemented into place using simplex cement with tobramycin. Once the cement had fully cured the knee was taken through a range of motion and tourniquet was turned down. The knee had 0 to 125 degrees of flexion with satisfactory patellofemoral tracking. The knee was copiously irrigated with sterile saline. The extensor mechanism was closed using interrupted #1 Vicryl. The rest of the incision was closed in a layered fashion using 0 and 2-0 Vicryls. Skin was closed using running 3-0 nylon suture. Sterile Xeroform, 4x4s, and Webril were used to cover the incision. Cesar wrap and cold pack were placed over this. The patient's anesthesia was reversed without difficulty. He was taken to the PACU in stable condition. Intended weightbearing will be weightbearing as tolerated. Intended DVT prophylaxis will be Eliquis. [id number]/[facility] #: [id number] CAROLINE
--- NOTE | 2018-08-21 10:50 | DS ---
Orthopedic Discharge Summary - Discharge Summary Date of Admission:08/20/18 Date of Discharge: 08/21/18 Date of Surgery: 08/20/18 Attending Orthopedic Provider: Dr. Avelar Pre-operative Diagnosis: failed patellar component right total knee arthroplasty Operative Procedure: Revision right total knee patellar component Disposition of Patient: home Condition of Patient: stable History: KAYLEY BERNABE is a 63 year old M with years of increasingly severe right anterior knee pain. He pailed conservative therapy. His plain films revealed superior migration of his patellar component therefore it was felt he would benefit from revision surgery of the patellar component. Hospital Course: KAYLEY was admitted to [facility] on 08/20/18. Patient underwent a revision right total knee patellar component and scar excision without complication followed by a brief recovery in PACU and transfer to the Short Stay Surgical Unit in stable condition. Our hospitalist service, physical therapy and occupational therapy also participated in this patients care. Post-op day 1: patient was alert and in no acute distress. Dressing was clean, dry and intact. Operative extremity dorsiflexion and plantarflexion intact, sensation intact to light touch distally, DP2+. Dressing was changed, incision was clean, dry and intact. Patient was deemed to be medically and orthopedically stable for discharge. Physical therapy goals were met. Home Medications Medication Instructions Recorded Confirmed Type Lisinopril TAB* [Prinivil TAB*] 20 mg PO 2200 03/25/14 08/20/18 History Mycophenolate Mofetil CAP(*) 1,000 mg PO 0700,1700 03/25/14 08/20/18 History [Cellcept CAP(*)] Pyridostigmine TAB* [Mestinon*] 3 tab PO 0700,1200,1700,2200 03/25/14 08/20/18 History predniSONE TAB* [Deltasone TAB*] 5 mg PO 0700,1200,1700 03/25/14 08/20/18 History Albuterol HFA INHALER* [Ventolin 1 - 2 puff INH Q4H PRN 08/11/18 08/20/18 History HFA Inhaler*] Aspirin [Aspir-Low] 81 mg PO 2200 08/11/18 08/20/18 History Multivitamin [Multiple Vitamins] 1 tab PO 1200 08/11/18 08/20/18 History Omeprazole (Nf) [Prilosec (NF)] 40 mg PO 1200 08/11/18 08/20/18 History Ranitidine TAB (NF) [Zantac TAB 300 mg PO 2200 08/11/18 08/20/18 History (NF)] Discharge home Out patient PT Eliquis 2.5 mg BID for DVT prophylaxis Tramadol 50 mg q6h prn pain Follow up 10-[address] Avelar
[2018-08-21 11:50] VITALS: BP 153/74
[2018-08-21] MEDS: Pantoprazole TAB * 40 MG TAB PO SCH (12:08)
== END 2018-08-21 14:35 | disposition home or self-care (01) | DRG 464 ==
LOC: AA 05:32 → SSU 11:40
PROVIDERS: ADMIT Orthopaedic Surgery Adult Reconstructive Orthopaedic Surgery; ATTEND Orthopaedic Surgery Adult Reconstructive Orthopaedic Surgery
PROC: 0SPC0NZ Removal of Patellofemoral Synthetic Substitute from Right Knee Joint, Open Approach (ICD-10-PCS; principal; 2018-08-18)
PROC: 0SRC0N9 Replacement of Right Knee Joint with Patellofemoral Synthetic Substitute, Cemented, Open Approach (ICD-10-PCS; 2018-08-18)
DX: T84.032A Mechanical loosening of internal right knee prosthetic joint, initial encounter (principal); J98.11 Atelectasis; Y79.2 Prosthetic and other implants, materials and accessory orthopedic devices associated with adverse incidents; Y92.9 Unspecified place or not applicable; M24.661 Ankylosis, right knee; Z96.651 Presence of right artificial knee joint; K21.9 Gastro-esophageal reflux disease without esophagitis; I10 Essential (primary) hypertension; G70.00 Myasthenia gravis without (acute) exacerbation; J30.2 Other seasonal allergic rhinitis; J44.9 Chronic obstructive pulmonary disease, unspecified; E78.2 Mixed hyperlipidemia; K22.70 Barrett's esophagus without dysplasia; E66.9 Obesity, unspecified; D64.9 Anemia, unspecified; T84.029A Dislocation of unspecified internal joint prosthesis, initial encounter; Z88.1 Allergy status to other antibiotic agents; Z81.8 Family history of other mental and behavioral disorders; Z79.82 Long term (current) use of aspirin; Z83.6 Family history of other diseases of the respiratory system; Z85.038 Personal history of other malignant neoplasm of large intestine; Z90.49 Acquired absence of other specified parts of digestive tract; Z88.0 Allergy status to penicillin; Z87.891 Personal history of nicotine dependence; Z68.39 Body mass index [BMI] 39.0-39.9, adult
CPT/HCPCS: 36415; 80048; 85014; 85018; 85049; 87070; 87073; 87205; 87640; 87641; 88300; A9270-GY; G8978-GP-CK; G8979-GP-CI; J1720; J2250; J2704; J2795; J3490; J7512

== ENCOUNTER → 2018-12-10 | Day surgery (SDC) | payer MEDICARE ==
[~2018-12-10] MED LIST changes: +Dexamethasone IV* 4 MG/ML 1 ML (4 MG) ONE; +Famotidine IV* 10 MG/ML 2 ML (20 mg) IV ONE; +Famotidine IV* 10 MG/ML 2 ML (20 mg) ONE; +KETAMINE HCL* 50 MG/ML 10 ML VIAL ONE; +Lactated Ringers 1000 ML Bag* 1,000 ML IV SCH; +Lidocaine 2% PF * 5 ML VIAL ONE; +Midazolam* 1 MG/ML 5 ML VIAL (5 MG) ONE; +Naloxone* 0.4 MG/ML 1 ML VIAL IV PRN; +Ondansetron INJ* 2 MG/ML VIAL IV PRN; +Ondansetron INJ* 2 MG/ML VIAL ONE; +Propofol* 10 MG/ML 20 ML BTL ONE; -Tranexamic Acid 1,000 MG in NS 0.9% 50 ML* (outpatient use) IV SCH; +fentaNYL* 50 MCG/ML 2 ML VIAL (100 MCG VIAL) IV PRN; +fentaNYL* 50 MCG/ML 2 ML VIAL (100 MCG VIAL) ONE
[2018-12-10 14:48] VITALS: BP 138/99
--- NOTE | 2018-12-10 22:57 | PRO ---
CC: Dr. José Kamara [place] * ESOPHAGOGASTRODUODENOSCOPY AND COLONOSCOPY REPORT: DATE OF PROCEDURE: 12/10/[address] - [facility] PHYSICIAN: Dr. José Kamara [place]. INDICATION FOR PROCEDURE: Iron deficiency anemia, Oglesby's esophagus. PROCEDURE PERFORMED: Complete esophagogastroduodenoscopy with biopsies and complete colonoscopy to the terminal ileum with biopsy polypectomy and biopsies. MEDICATIONS GIVEN: Please see anesthesia record. DESCRIPTION OF PROCEDURE: After the EGD and colonoscopy procedure including the risks, benefits, and alternatives with the risks not limited to perforation , surgery, missed lesions, and/or were explained to the patient, written informed consent was obtained, IV medication was given by the anesthesia service and a bite block was placed between the teeth. The adult Olympus gastroscope was then inserted into the patient's oropharynx into the tubular esophagus. The tubular esophagus had possible C0M2 Oglesby's esophagus. There was some scant nodularity in two distinct areas; this was biopsied separately for each area. There was an associated moderate sized hiatal hernia. The scope was advanced to the lower esophageal sphincter into the stomach. The views were grossly normal. On retroflexion, I do not appreciate any significant Russ erosions. The scope was advanced through the widely patent pylorus, into the duodenal bulb, C loop, and distal duodenum and these were normal in appearance without any evidence of villous blunting. The scope was then removed from the patient. He tolerated the procedure well. He was then rotated, given additional IV sedation medication and a rectal exam was performed. The rectal exam was unremarkable. The adult Olympus colonoscope was then inserted into the patient's rectum and advanced very carefully through the entirety of the colon into the cecal base. Cecal base was carefully inspected and normal in appearance. The terminal ileal valve was identified and intubated x4 to 5 cm and normal. The scope was returned to the cecum. A photograph was taken of the cecal cap. Preparation was poor to fair, was able to wash to fairly descent views, but still not optimal. Over the next 10 minutes, the scope was carefully withdrawn inspecting the mucosa. Eight polyps were removed, 3 in the sigmoid, 4 in the rectum and 1 in the transverse colon, all with biopsy polypectomy. He had umqxoqur-[id number]-[id number] zelaya diverticulosis coli throughout the entirety of the colon, slightly higher distribution on the left, but pretty significant throughout. On return to the rectum on the first fold of [place], there was a possible stercoral ulcer. I took biopsies of this. No active bleeding was noted. On retroflexion, grade 1 internal hemorrhoids was appreciated. The scope was then removed from the patient. He tolerated the procedure well. He returned to the recovery room in stable condition. IMPRESSION: 1. Complete esophagogastroduodenoscopy with biopsies. 2. C0M2 Oglesby's with nodularity, biopsied. 3. Moderate hiatal hernia. 4. Otherwise unremarkable EGD. No significant Russ erosions appreciated. No fresh or old blood. 5. Complete colonoscopy to the terminal ileum. 6. Poor prep that was able to be washed to fair. 7. Biopsy polypectomy x8 as above. 8. Wreotrzv-ci-huavgr zelaya diverticulosis coli. 9. Grade 1 internal hemorrhoids. 10. Probable stercoral ulcer. RECOMMENDATIONS: Continue with PPI therapy. We will follow up on the results of the biopsies. In addition, he did have internal hemorrhoids and a possible stercoral ulcer in the rectum. 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 I would recommend daily MiraLAX therapy. He had been doing Colace, but I doubt this is effective and this may have led to the stercoral ulcer in the rectum. At this point, I do not feel that capsule endoscopy is necessary. He has multiple reasons to have a positive stool card for occult blood along with likely anemia of chronic disease. If the results of the biopsies are reasonable , would plan on just monitoring hemoglobin in the future. If there is a drop in the future, would recommend capsule endoscopy at that time. We will plan on a repeat EGD and colonoscopy in 1 year given the semi fair to poor prep along with the Oglesby's esophagus, pending biopsy results. Addendum: Biopsies with adenocarinoma within Oglesby's. Coming to office on 12/25 to review. [id number]/BILL #: [id number] CAROLINE
== END | disposition home or self-care (01) ==
LOC: OR 11:11
PROVIDERS: ATTEND Internal Medicine Gastroenterology
DX: C15.9 Malignant neoplasm of esophagus, unspecified (principal); D50.0 Iron deficiency anemia secondary to blood loss (chronic); K21.0 Gastro-esophageal reflux disease with esophagitis; K44.9 Diaphragmatic hernia without obstruction or gangrene; K57.30 Diverticulosis of large intestine without perforation or abscess without bleeding; K62.1 Rectal polyp; K63.5 Polyp of colon; G70.00 Myasthenia gravis without (acute) exacerbation; I10 Essential (primary) hypertension; J44.9 Chronic obstructive pulmonary disease, unspecified
CPT/HCPCS: 88305; 88341; 88342; 88360; J1100; J2250; J2405; J2704; J3010

== ENCOUNTER 2019-02-12 17:16 | Emergency (ER) | payer SELFPAY ==
--- OUTSIDE RECORDS SUMMARY | 2019-02-12 17:32 | XMS REPORT | Continuity of Care Document ---
:1955 External Reference #:[id number] Author Name Pawan Hyde DO Address [address] [place] [id number] Care Team Providers Name Role Phone José Kamara MD Care Team Information Customer Relations Specialist [phone] Problems Description No Information Available Social History Type Date Description Comments Sex Male Tobacco Use Start: Unknown End: Unknown Patient is a former smoker Smoking Status Reviewed: 12/25/18 Patient is a former smoker Allergies, Adverse Reactions, Alerts Active Allergies Reaction Severity Comments Date Amoxicillin 12/01/2018 Erythromycin 12/01/2018 Medications Active Medications SIG Qnty Indications Ordering Provider Date Lisinopril Cathy York FNP 20mg Tablets Omeprazole Cathy York FNP 40mg Capsules DR Ranitidine HCL Cathy York FNP 300mg Tablets Mycophenolate Mofetil 2 Tabs bid Unknown 500mg Tablets Pyridostigmine Emerson 3 Tabs qid Unknown 60mg Tablets Prednisone tid Unknown 5mg Tablets Albuterol Sulfate HFA José Kamara MD 108(90Base) mcg/Act Aerosol Iron 1 by mouth qd Unknown 325(65Fe) mg Tablets Aspirin 81 daily Unknown 81mg Tablets DR History Medications Peg 3350/Electrolytes use as directed 4000ml Pawan Hyde DO 12/04/2018 - 240gm 12/25/2018 Solution Rec Immunizations Description No Information Available Vital Signs Date Vital Result Comment 12/25/2018 2:42pm Height 70 inches 5'10" Weight 263.00 lb BMI (Body Mass Index) 37.7 kg/m2 12/01/2018 3:29pm Height 70 inches 5'10" Weight 272.00 lb BP Systolic 146 mmHg BP Diastolic 98 mmHg Heart Rate 80 /min BMI (Body Mass Index) 39.0 kg/m2 Results Test Date Facility Test Result H/L Range Note Laboratory test 12/10/2018 [facility] [place] Surgical SEE RESULT 1 finding Pathology Order BELOW 1 SEE RESULT BELOW Name: KAYLEY BERNABE : [address]: Pawan Hyde DO Acct: [id number] Unit: [id number] AGE: 63 Location: OR Re12/10/18 SEX: M Status: REG [facility] [place] SPEC: [id number] JENNIFER: 12/10/[address]: Pawan Hyde DO REQ: [id number] RECD: 12/10/18 STATUS: PATI BRUNSON DR: José Kamara MD _ ORDERED: LEVEL 4/6 FINAL DIAGNOSIS 1. Esophagus, at 40 cm, biopsy: -- Invasive adenocarcinoma, well-differentiated; see comment. 2. Esophagus, at 36 cm, biopsy: -- Benign columnar-type mucosa with chronic inflammation and intestinal metaplasia. -- Dysplasia is absent. 3. Colon, transverse, biopsy: -- Hyperplastic polyp. 4. Colon, sigmoid, biopsy: -- Hyperplastic polyps. 5. Colon, rectum, biopsy: -- Hyperplastic polyps. 6. Colon, rectum, biopsy: -- Ulcerated benign colonic mucosa with ischemic change and an acute inflammatory exudate. -- No evidence of active or chronic colitis. COMMENT: Mismatch repair protein, HER-2/jordyn, and PD-L1 immunohistochemistry are pending and the results will be reported in an addendum. Dr. Garces reviewed this case in intradepartmental consultation and agrees with the diagnosis. POST-OPERATIVE DIAGNOSIS EGD: esophagus ??? COM2 Oglesby???s esophagus with nodularity biopsy; large 5 cm hiatal hernia; gastric ??? normal; duodenum ??? normal; colonoscopy: to terminal ileum; rectum; sigmoid; transvers; biopsy polypectomy (8) CONTINUED ON NEXT PAGE DEPARTMENT OF PATHOLOGY, [address] [place] [address] Inocente Garces M.D. Director [facility] # [id number] GROSS DESCRIPTION 1. The specimen is received in formalin labeled, Biopsy Oglesby's Nodularity at 40 cm, and consists of two valdes-pink irregular soft tissue fragments averaging 0.5 by up to 0.3 x 0.2 cm which are submitted entirely in one cassette. 2. The specimen is received in formalin labeled, Biopsy Oglesby's Nodularity at 36 cm, and consists of a 0.3 by up to 0.3 x 0.2 cm valdes-pink irregular soft tissue fragment which is submitted entirely in one cassette. 3. The specimen is received in formalin labeled, Biopsy Transverse Colon Polyp, and consists of a 0.7 x 0.2 x 0.1 cm valdes-red irregular soft tissue fragment which is submitted entirely in one cassette. 4. The specimen is received in formalin labeled, Biopsy Sigmoid Colon Polyps, and consists of two valdes-pink irregular to polypoid soft tissue fragments measuring 0.3 x 0.2 x 0.2 cm and 0.5 x 0.3 by up to 0.2 cm which are submitted entirely in one cassette. 5. The specimen is received in formalin labeled, Biopsy Rectal Polyps, and consists of a 0.4 x 0.3 x 0.2 cm valdes-pink irregular soft tissue fragment which is submitted entirely in one cassette. 6. The specimen is received in formalin labeled, Biopsy Rectal Ulcer, and consists of three valdes-pink irregular soft tissue fragments aggregating 0.4 x 0.4 by up to 0.2 cm which are submitted entirely in one cassette. Signed by and Reported on: Callie Cabezas MD 12/11/18 1705 END OF REPORT DEPARTMENT OF PATHOLOGY, [address] [place] [address] Inocente Garces M.D. Director [facility] # [id number] SEE RESULT BELOW Name: KAYLEY BERNABE : [address]: Pawan Hyde DO Acct: [id number] Unit: [id number] AGE: 63 Location: OR Re12/10/18 SEX: M Status: REG [facility] SPEC: [id number] JENNIFER: 12/10/18-13[address] [facility] [address]: Pawan Hyde DO REQ: [id number] RECD: 12/10/18 STATUS: PATI BRUNSON DR: José Kamara MD _ ORDERED: LEVEL 4/6, IMMUNO-FIRST, IMMUNO-ADDL/3, IMMUNO-QUANT/2 ADDENDUM Immunohistochemical stains, with appropriately reacting controls, were performed with the following results: HER-2/jordyn negative (0+) PD-L1 0% tumor, 1% microenvironment) MLH-1 intact PMS-2 intact MSH-2 intact MSH-6 intact Addendum Signed (signature on file) Callie Cabezas MD [id number] FINAL DIAGNOSIS 1. Esophagus, at 40 cm, biopsy: -- Invasive adenocarcinoma, well-differentiated; see comment. 2. Esophagus, at 36 cm, biopsy: -- Benign columnar-type mucosa with chronic inflammation and intestinal metaplasia. -- Dysplasia is absent. 3. Colon, transverse, biopsy: -- Hyperplastic polyp. 4. Colon, sigmoid, biopsy: -- Hyperplastic polyps. 5. Colon, rectum, biopsy: -- Hyperplastic polyps. 6. Colon, rectum, biopsy: -- Ulcerated benign colonic mucosa with ischemic change and an acute inflammatory exudate. -- No evidence of active or chronic colitis. CONTINUED ON NEXT PAGE DEPARTMENT OF PATHOLOGY, [address] [place] [address] Inocente Garces M.D. Director [facility] # [id number] COMMENT: Mismatch repair protein, HER-2/jordyn, and PD-L1 immunohistochemistry are pending and the results will be reported in an addendum. Dr. Garces reviewed this case in intradepartmental consultation and agrees with the diagnosis. POST-OPERATIVE DIAGNOSIS EGD: esophagus ??? COM2 Oglesby???s esophagus with nodularity biopsy; large 5 cm hiatal hernia; gastric ??? normal; duodenum ??? normal; colonoscopy: to terminal ileum; rectum; sigmoid; transvers; biopsy polypectomy (8) GROSS DESCRIPTION 1. The specimen is received in formalin labeled, Biopsy Oglesby's Nodularity at 40 cm, and consists of two valdes-pink irregular soft tissue fragments averaging 0.5 by up to 0.3 x 0.2 cm which are submitted entirely in one cassette. 2. The specimen is received in formalin labeled, Biopsy Oglesby's Nodularity at 36 cm, and consists of a 0.3 by up to 0.3 x 0.2 cm valdes-pink irregular soft tissue fragment which is submitted entirely in one cassette. 3. The specimen is received in formalin labeled, Biopsy Transverse Colon Polyp, and consists of a 0.7 x 0.2 x 0.1 cm valdes-red irregular soft tissue fragment which is submitted entirely in one cassette. 4. The specimen is received in formalin labeled, Biopsy Sigmoid Colon Polyps, and consists of two valdes-pink irregular to polypoid soft tissue fragments measuring 0.3 x 0.2 x 0.2 cm and 0.5 x 0.3 by up to 0.2 cm which are submitted entirely in one cassette. 5. The specimen is received in formalin labeled, Biopsy Rectal Polyps, and consists of a 0.4 x 0.3 x 0.2 cm valdes-pink irregular soft tissue fragment which is submitted entirely in one cassette. 6. The specimen is received in formalin labeled, Biopsy Rectal Ulcer, and consists of three valdes-pink irregular soft tissue fragments aggregating 0.4 x 0.4 by up to 0.2 cm which are submitted entirely in one cassette. Signed by and Reported on: Callie Cabezas MD 12/11/18 4005 END OF REPORT DEPARTMENT OF PATHOLOGY, [address] [place] [address] Inocente Garces M.D. Director [facility] # [id number] Procedures Description No Information Available Medical Devices Description No Information Available Encounters Type Date Location Provider Dx Diagnosis Office Visit 12/01/2018 Gastroenterology Pawan Hyde, D50.0 Iron deficiency 3:45p [facility] anemia secondary to blood loss (chronic) K21.9 Gastro-esophageal reflux disease without esophagitis G70.00 Myasthenia gravis without (acute) exacerbation Assessments Date Code Description Provider 12/25/2018 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 Pawan Arnoldrdan , DO 12/25/2018 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 Barrett , DO (chronic) 12/01/2018 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 Arnoldrdan , DO (chronic) 12/01/2018 K21.9 Gastro-esophageal reflux disease without Pawan Barrett, DO esophagitis 12/01/2018 G70.00 Myasthenia gravis without (acute) exacerbation Pawan Hyde, DO Plan of Treatment 12/25/2018 - Pawan Hyde, DO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New Labs:CBC W/Auto Differential(!), Ordered: 12/25/18CMP(!), Ordered: 12/25/18New Xrays:CT, Chest, Routine, W/ Contrast (94756), Ordered: 12/25/18CT, Abd & Pelvis W/ Contrast, Ordered: 12/25/18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 (chronic)New Xrays:CT, Chest, Routine, W/ Contrast ( 19091), Ordered: 12/25/18CT, Abd & Pelvis W/ Contrast, Ordered: 12/25/18 Functional Status Description No Information Available Mental Status Description No Information Available Referrals Description No Information Available
--- OUTSIDE RECORDS SUMMARY | 2019-02-12 17:32 | XMS REPORT | Continuity of Care Document ---
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 Onset: 01/29/2016 Prosthetic joint loosening Sybil Avelar M.D. Onset: 08/07/2018 Derangement of knee Sybil Avelar M.D. Onset: 08/07/2018 Localized, primary osteoarthritis of the Keon Chavarria MD Onset: 11/06/2018 shoulder region Social History Type Date Description Comments Sex Unknown ETOH Use Denies alcohol use Tobacco Use Start: Unknown End: Unknown Patient is a former smoker Quit 2013 Smoking Status Reviewed: 01/01/19 Patient is a former smoker Quit 2013 Allergies, Adverse Reactions, Alerts Active Allergies Reaction Severity Comments Date Amoxicillin 01/29/2016 ALL "Cillins" 11/17/2018 Inactive Allergies NKDA 10/26/2013 NKDA 2014 Medications Active Medications SIG Qnty Indications Ordering Provider Date Omeprazole 1 by mouth 90caps Keon Chavarria MD 11/17/[address] every day Lisinopril 1 by mouth 90tabs Unknown 20mg Tablets every day Aspirin Ec One tab by Unknown 81mg Tablets DR mouthd daily Pyridostigmine [place] 3 tabs by mouth Unknown 60mg four times Tablets daily Mycophenolate Mofetil 2 by mouth Unknown 500mg twice a day Tablets Ranitidine Acid Wire Chief Unknown Presnisone 5 mg tid Unknown Miralax 17 grams by Unknown Powder mouth every day as needed [facility] Iron one tab every Unknown 325(65Fe) mg other day Tablets Multi For Him 50+ once a day Unknown Tablets Medications Administered in Office Medication SIG Qnty Indications Ordering Provider Date Depomedrol 80MG Dennis Austin M.D. 07/07/2014 Injection Immunizations Description No Information Available Vital Signs Date Vital Result Comment 01/01/2019 9:06am Height 70 inches 5'10" Weight 266.00 lb Heart Rate 60 /min BP Systolic 146 mmHg BP Diastolic 88 mmHg Respiratory Rate 18 /min Body Temperature 96.3 F Pain Level 7 BMI (Body Mass Index) 38.2 kg/m2 11/17/2018 9:09am Height 70 inches 5'10" Weight 264.00 lb Heart Rate 80 /min BP Systolic 118 mmHg BP Diastolic 82 mmHg Pain Level 5 BMI (Body Mass Index) 37.9 kg/m2 Results Test Date Facility Test Result H/L Range Note Inr/Protime 11/17/2018 [facility] Inr 1.03 Normal 0.82-1.09 1 , 2 [address] [place] [address] [phone] Laboratory test 11/17/2018 [facility] Partial 31.5 seconds Normal 26.0-38.0 finding [address] [facility] [place] [address] PTT [phone] Urinalysis 11/17/2018 [facility] Urine Color Yellow Profile [address] [place] [address] [phone] Urine Appearance Clear Urine Specific Kinta 1.015 Normal 1.010-1.030 Urine pH 7.0 Normal 5-9 Urine Urobilinogen Negative Negative Urine Ketones Negative Negative Urine Protein Negative Negative Urine Leukocytes Negative Negative Urine Blood Negative Negative Urine Nitrite Negative Negative Urine Bilirubin Negative Negative Urine Glucose Negative Negative Basic Metabolic 11/17/2018 [facility] Sodium 141 mmol/L Normal 135-145 Panel [address] [place] [address] [phone] Potassium 4.4 mmol/L Normal 3.5-5.0 Chloride 103 mmol/L Normal 101-111 Co2 Carbon Dioxide 32 mmol/L Normal 22-32 Anion Gap 6 mmol/L Normal 2-11 Glucose 86 mg/dL Normal 70-100 Blood Urea Nitrogen 15 mg/dL Normal 6-24 Creatinine 0.77 mg/dL Normal 0.67-1.17 BUN/Creatinine Ratio 19.5 Normal 8-20 Calcium 9.7 mg/dL Normal 8.6-10.3 Egfr Non- 102.4 >60 Egfr 123.9 >60 3 Laboratory 11/17/2018 [facility] TSH (Thyroid 0.66 Normal 0.34 -5.60 test finding [address] Stim Horm) mcIU/[place] [address] [phone] Free T4 (Free Thyroxine) 0.84 ng/dL Normal 0.61-1.12 Type & Screen 11/17/2018 [facility] Patient Blood Type O Positive [address] [place] [address] [phone] Antibody Screen NEGATIVE CBC Auto 11/17/2018 [facility] White Blood 11.7 10^3/uL High 3.5-10.[address] [place] [address] [phone] Red Blood Count 4.73 10^6/uL Normal 4.18-5.48 Hemoglobin 11.3 g/dL Low 14.0-18.0 Hematocrit 37 % Low 42-52 Mean Corpuscular Volume 77 fL Low 80-94 Mean Corpuscular Hemoglobin 24 pg Low 27-31 Mean Corpuscular HGB Conc 31 g/dL Normal 31-36 Red Cell Distribution Width 20 % High 10-15 Abs Neutrophils 9.6 10^3/uL High 1.5-7.7 Abs Lymphocytes 1.4 10^3/uL Normal 1.0-4.8 Abs Monocytes 0.6 10^3/uL Normal 0-0.8 Abs Eosinophils 0.1 10^3/uL Normal 0-0.6 Abs Basophils 0.1 10^3/uL Normal 0-0.2 Abs Nucleated RBC 0.0 10^3/uL Granulocyte % 81.6 % Lymphocyte % 11.9 % Monocyte % 5.2 % Eosinophil % 0.7 % Basophil % 0.1 % Nucleated Red Blood Cells % 0.0 Platelet Count 227 10^3/uL Normal 150-450 Mean Platelet Volume 9.0 fL Normal 7.4-10.4 Cell Morphology 11/17/2018 [facility] Microcytosis [address] [place] [address] [phone] Hypochromasia 2+ Polychromasia 1+ Anisocytosis 2+ Urine Culture And 08/11/2018 [facility] Urine Culture SEE RESULT [address] [place] [address] [phone] Type & Screen 08/11/2018 [facility] Patient [place] [address] [phone] Antibody Screen NEGATIVE Comp Metabolic 08/11/2018 [facility] Sodium 140 mmol/L Normal 135-[address] [place] [address] [phone] Potassium 4.5 mmol/L Normal 3.5-5.0 Chloride 103 mmol/L Normal 101-111 Co2 Carbon Dioxide 31 mmol/L Normal 22-32 Anion Gap 6 mmol/L Normal 2-11 Glucose 89 mg/dL Normal 70-100 Blood Urea Nitrogen 17 mg/dL Normal 6-24 Creatinine 0.87 mg/dL Normal 0.67-1.17 BUN/Creatinine Ratio 19.5 Normal 8-20 Calcium 9.6 mg/dL Normal 8.6-10.3 Total Protein 6.6 g/dL Normal 6.4-8.9 Albumin 4.2 g/dL Normal 3.2-5.2 Globulin 2.4 g/dL Normal 2-4 Albumin/Globulin Ratio 1.8 Normal 1-3 Total Bilirubin 0.60 mg/dL Normal 0.2-1.0 Alkaline Phosphatase 78 U/L Normal 34-104 Alt 26 U/L Normal 7-52 Ast 23 U/L Normal 13-39 Egfr Non- 88.9 >60 Egfr 107.6 >60 5 Laboratory test 08/11/2018 [facility] Partial 30.6 Normal 26.0 -36.[address] [place] [address] Time PTT [phone] Inr/Protime 08/11/2018 [facility] Inr 1.06 Normal 0.82-1.[address] [place] [address] [phone] CBC Auto Diff 08/11/2018 [facility] White Blood 9.6 10^3/uL Normal 3.5-10.[address] [place] [address] [phone] Red Blood Count 4.68 10^6/uL Normal 4.18-5.48 Hemoglobin 11.3 g/dL Low 14.0-18.0 Hematocrit 37 % Low 42-52 Mean Corpuscular Volume 78 fL Low 80-94 Mean Corpuscular Hemoglobin 24 pg Low 27-31 Mean Corpuscular HGB Conc 31 g/dL Normal 31-36 Red Cell Distribution Width 19 % High 10.5-15 Platelet Count 258 10^3/uL Normal 150-450 Mean Platelet Volume 8.4 fL Normal 7.4-10.4 Abs Neutrophils 7.6 10^3/uL Normal 1.5-7.7 Abs Lymphocytes 1.3 10^3/uL Normal 1.0-4.8 Abs Monocytes 0.6 10^3/uL Normal 0-0.8 Abs Eosinophils 0.1 10^3/uL Normal 0-0.6 Abs Basophils 0.0 10^3/uL Normal 0-0.2 Abs Nucleated RBC 0.0 10^3/uL Granulocyte % 79.1 % Lymphocyte % 13.7 % Monocyte % 5.9 % Eosinophil % 1.0 % Basophil % 0.3 % Nucleated Red Blood Cells % 0.0 Urinalysis Profile 08/11/2018 [facility] Urine Color Yellow [address] [place] [address] [phone] Urine Appearance Clear Urine Specific Kinta 1.009 Low 1.010-1.030 Urine pH 6.0 Normal 5-9 Urine Urobilinogen Negative Negative Urine Ketones Negative Negative Urine Protein Negative Negative Urine Leukocytes Negative Negative Urine Blood Negative Negative Urine Nitrite Negative Negative Urine Bilirubin Negative Negative Urine Glucose Negative Negative Xray 08/07/2018 [facility] Knee 3 Views RT <pending> [address] [place] [address] [phone] 1 PRIMARY OSTEOARTHITIS,RIGHT SHOULDER 2 Standard intensity warfarin therapeutic range: 2.0-3.0 High intensity warfarin therapeutic range: 2.5-3.5 3 Because ethnic data is not always readily [...] 15-29 5 Kidney failure <15 (or dialysis) 4 SEE RESULT BELOW Name: KAYLEY BERNABE : [address]: Sybil Avelar MD Acct: [id number] Unit: [id number] AGE: 63 Location: [facility] Re08/11/18 SEX: M Status: REG REF SPEC: [id number] JENNIFER: 08/11/18-1224 [facility] DR: Sybil Avelar MD REQ: [id number] RECD: 08/11/182 STATUS: ALY BRUNSON DR: José Kamara MD _ SOURCE: URINE SPDESC: ORDERED: Urine Culture QUERIES: Urine Source: Random Procedure Result Reported Site Urine Culture Final 08/12/18- 1211 ML No Growth (<1,000 CFU/mL) * ML - Main Lab . END OF REPORT DEPARTMENT OF PATHOLOGY, [address] [place] [address] Inocente Garces M.D. Director [facility] # [id number] 5 Because ethnic data is not always [...] 15-29 5 Kidney failure <15 (or dialysis) 6 Standard intensity warfarin therapeutic range: 2.0-3.0 High intensity warfarin therapeutic range: 2.5-3.5 Procedures Date Code Description Status 01/01/2019 Inj/Aspir Major JT Or Bursa W/ US Completed 01/01/2019 Inj/Aspir Major JT Or Bursa W/ US Completed 08/20/2018 00225 Revise Total Knee Arthroplasty One Component Completed 08/20/2018 37769 Revise Total Knee Arthroplasty One Component Completed Medical Devices Description No Information Available Encounters Type Date Location Provider Dx Diagnosis Office Visit 11/06/2018 [facility] Keon Chavarria MD M19.011 Primary 8:45a at [place] osteoarthritis, right shoulder M19.012 Primary osteoarthritis, left shoulder Office Visit 10/13/2018 [facility] M19.011 Primary 9:00a Orthopedics at [facility] osteoarthritis, [place] right shoulder S46.011A Strain of musc/tend the rotator cuff of right shoulder, init M19.012 Primary osteoarthritis, left shoulder Office Visit 08/20/2018 [facility] Flory G70.00 Myasthenia gravis 10:43a Assoc,[facility] KOMAL Healy without (acute) Hospitalists exacerbation I10 Essential (primary) hypertension K22.719 Oglesby's esophagus with dysplasia, unspecified J98.11 Atelectasis Z96.651 Presence of right artificial knee joint Office Visit 08/07/2018 9:15a [facility] Sybil Avelar, M25.561 Pain in right at [facility].D knee M25.461 Effusion, right knee Z96.651 Presence of right artificial knee joint T84.032A [facility] loosening of internal right knee prosthetic joint, init 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, right knee Assessments Date Code Description Provider 01/01/2019 M19.011 Primary osteoarthritis, right shoulder Keon Chavarria MD 01/01/2019 M19.012 Primary osteoarthritis, left shoulder Keon Chavarria MD 11/17/2018 M19.011 Primary osteoarthritis, right shoulder Keon Chavarria MD 11/06/2018 M19.011 Primary osteoarthritis, right shoulder Keon Chavarria MD 11/06/2018 M19.012 Primary osteoarthritis, left shoulder Keon Chavarria MD 10/13/2018 M19.011 Primary osteoarthritis, right shoulder Keon Chavarria MD 10/13/2018 S46.011A Strain of muscle(s) and tendon(s) of the Keon Chavarria MD rotator cuff of rig 10/13/2018 M19.012 Primary osteoarthritis, left shoulder Keon Chavarria MD 10/07/2018 M25.561 Pain in right knee Sybil Avelar M.D. 10/07/2018 M25.461 Effusion, right knee Sybil Avelar M.D. 10/07/2018 Z47.1 Aftercare following joint replacement Sybil Avelar M.D. surgery 10/07/2018 Z96.651 Presence of right artificial knee joint Sybil Avelar M.D. 09/09/2018 M25.561 Pain in right knee Sybil Avelar M.D. 09/09/2018 M25.461 Effusion, right knee Sybil Avelar M.D. 09/09/2018 T84.032D Mechanical loosening of internal right knee Sybil Avelar M.D. prosthetic joint 08/31/2018 T84.032D Mechanical loosening of internal right knee Sybil Avelar M.D. prosthetic joint 08/31/2018 Z96.651 sequent encounter Sybil Avelar M.D. 08/31/2018 M25.561 Pain in right knee Sybil Avelar M.D. 08/21/2018 T84.032D [facility] loosening of internal right knee GABRIELLA Barr prosthetic joint, subs 08/20/2018 G70.00 Myasthenia gravis without (acute) Flory Healy PA-C exacerbation 08/20/2018 T84.032A Mechanical loosening of internal right knee MOOSE Montesinos prosthetic joint 08/20/2018 I10 Essential (primary) hypertension Flory Healy PA-C 08/20/2018 T84.032A Mechanical loosening of internal right knee Sybil Avelar M.D. prosthetic joint 08/20/2018 K22.719 Oglesby's esophagus with dysplasia, Flory Healy PA-C unspecified 08/20/2018 J98.11 Atelectasis Flory Healy PA-C 08/20/2018 Z96.651 Presence of right artificial knee joint Flory Healy PA-C 08/07/2018 M25.561 Pain in right knee Sybil Avelar M.D. 08/07/2018 M25.461 Effusion, right knee Sybil Avelar M.D. 08/07/2018 Z96.651 Presence of right artificial knee joint Sybil Avelar M.D. 08/07/2018 T84.032A Mechanical loosening of internal right knee Sybil Avelar M.D. 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 Plan of Treatment Future Appointment(s):02/12/2019 9:00 am - Keon Chavarria MD at [facility] at [id number]/01/2019 - Keon Chavarria, MDM19.011 Primary osteoarthritis , right shoulderNew Xrays:Inj/Aspir Major JT Or Bursa W/ US, Ordered: Follow up:Follow up:M19.012 Primary osteoarthritis, left shoulder Functional Status Description No Information Available Mental Status Description No Information Available Referrals Description No Information Available
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
[2019-02-12 19:04] VITALS: BP 134/90
== END 2019-02-12 19:08 | disposition home or self-care (01) ==
LOC: ED 17:16
DX: Z04.1 Encounter for examination and observation following transport accident (principal); V43.52XA Car driver injured in collision with other type car in traffic accident, initial encounter; Y92.410 Unspecified street and highway as the place of occurrence of the external cause; D64.9 Anemia, unspecified; I10 Essential (primary) hypertension; K21.9 Gastro-esophageal reflux disease without esophagitis; Z87.891 Personal history of nicotine dependence; Z79.899 Other long term (current) drug therapy; Z90.49 Acquired absence of other specified parts of digestive tract; Z96.651 Presence of right artificial knee joint; Z88.1 Allergy status to other antibiotic agents; Z88.0 Allergy status to penicillin
CPT/HCPCS: 99281

== ENCOUNTER 2019-04-19 14:04 | Emergency (ER) | payer MEDICARE ==
--- OUTSIDE RECORDS SUMMARY | 2019-04-19 14:16 | XMS REPORT | Continuity of Care Document ---
:1955 Author Organization 0001 - [employer] Address [address] [place] [address] Phone Care Team Providers Name Role Phone VINICIO WEAVER MD Unavailable Unavailable Allergies, Adverse Reactions, Alerts Substance Reaction Status amoxicillin Other Active Medications Medication Instructions Dosage Effective Status Comments Dates (start - stop) Ventolin HFA 90 inhale 2 puff by 2 puff - Active mcg/actuation Inhalation route aerosol inhaler every 4 - 6 hours as needed metoprolol take 1 tablet by 25 MG - Active succinate ER 25 mg oral route every tablet,extended day release 24 hr omeprazole 40 mg take 1 capsule by 40 MG - Active capsule,delayed ORAL route 2 release times every day before a meal famotidine 40 mg take 1 tablet by 40 MG - Active tablet oral route every day at bedtime ferrous sulfate 325 take 1 by Oral 1 - Active mg (65 mg iron) route 2 times tablet every day lisinopril 20 mg take 1 tablet by 20 MG - Active tablet ORAL route every day prednisone 5 mg take 1 tablet by 1 tablet - Active tablet oral route 3 times every day pyridostigmine take 3 tablet by 3 tablet - Active PT hospitalized bromide 60 mg oral route every and this started tablet 6 hours on 02/24/14 mycophenolate take 2 tablet by 1000 MG - Active mofetil 500 mg oral route 2 tablet times every day ProAir RespiClick inhale 2 puff by 180 MCG - Active 90 mcg/actuation inhalation route breath activated every 4 - 6 hours as needed Miralax 17 take (17G) by 17 G - Active gram/dose oral oral route every powder day mixed with 8 oz. water, juice, soda, coffee or tea Aspir-81 81 mg take 1 tablet by 81 MG - Active tablet,delayed oral route every release day multivitamin take 1 capsule by - Active capsule oral route every day Ventolin HFA 90 inhale 2 puff by 2 puff - No Longer mcg/actuation Inhalation route Active aerosol inhaler every 4 - 6 hours as needed Problems Condition Effective Dates (start - stop) Clinical Status Abdominal aortic aneurysm, without rupture Essential (primary) hypertension Encntr for f/u exam aft trtmt for cond - oth than sherri neoplm PVC's (premature ventricular contractions) Elevated blood pressure reading in office with diagnosis of hypertension Abdominal aortic aneurysm, without - rupture Malignant neoplasm of esophagus, - unspecified Elevated blood-pressure reading, w/o - diagnosis of htn Personal history of nicotine - dependence Ringworm Essential hypertension Personal history of nicotine - dependence Cntct w and expsr to environ tobacco - smoke (acute) (chronic) Elevated blood pressure reading with diagnosis of hypertension Abdominal aortic aneurysm, without - rupture Malignant neoplasm of esophagus, - unspecified Abdominal aortic aneurysm, without - rupture Malignant neoplasm of esophagus, - unspecified Abdominal aortic aneurysm (AAA) without rupture Malignant neoplasm of lower third of esophagus Microcytic anemia Oglesby's esophagus with esophagitis Esophagitis, unspecified Tubular adenoma of colon Occult GI bleeding Preoperative general physical examination Primary osteoarthritis of right shoulder Myasthenia gravis Essential hypertension Chronic obstructive pulmonary disease, unspecified COPD type Anemia in other chronic diseases classified elsewhere Preoperative examination Prosthetic knee implant failure, subsequent encounter ^ Presence of unspecified artificial knee joint Preoperative examination Displacement of internal knee prosthesis ^ Presence of unspecified artificial knee joint Myasthenia gravis without (acute) exacerbation Essential (primary) hypertension Chronic obstructive pulmonary disease, unspecified COPD type Anemia, unspecified type Abnormal CXR Personal history of nicotine - dependence Cntct w and expsr to environ tobacco - smoke (acute) (chronic) Essential (primary) hypertension Mixed hyperlipidemia Myasthenia gravis without (acute) exacerbation Oglesby's esophagus without dysplasia Personal history of nicotine - dependence Mixed hyperlipidemia Essential (primary) hypertension Essential (primary) hypertension Myasthenia gravis without (acute) exacerbation Oglesby's esophagus without dysplasia Immunization, single disease Personal history of nicotine - dependence Cntct w and expsr to environ tobacco - smoke (acute) (chronic) Essential (primary) hypertension Myasthenia gravis without (acute) exacerbation Hemorrhoids, internal Cntct w and expsr to environ tobacco - smoke (acute) (chronic) Third degree hemorrhoids Encounter for other specified surgical - aftercare Third degree hemorrhoids Encounter for other specified surgical - aftercare Third degree hemorrhoids Encounter for other preprocedural - examination Third degree hemorrhoids Myasthenia gravis without (acute) - exacerbation Olecranon bursitis of right elbow Essential (primary) hypertension Mixed hyperlipidemia Myasthenia gravis without (acute) exacerbation Reactive airway disease, mild persistent, uncomplicated Essential (primary) hypertension Mixed hyperlipidemia Myasthenia gravis without (acute) exacerbation Hemorrhoids, internal Third degree hemorrhoids - Essential (primary) hypertension Essential (primary) hypertension Essential (primary) hypertension Mixed hyperlipidemia Periodic health assessment, general screening, adult Hypertension, Benign Preoperative exam Osteoarthritis of knee Myasthenia gravis Mixed Hyperlipidemia OGLESBY'S ESOPHAGUS Hypertension, Benign Myasthenia gravis Myasthenia gravis Medication side effect Neuritis of ulna Myasthenia gravis Myasthenia gravis Hypertension, Benign Headache Double vision Pneumonia Sinusitis Sinusitis, Acute - Seborrheic keratosis Epidermal cyst Hypertension, Benign Mixed Hyperlipidemia OGLESBY'S ESOPHAGUS Screening for malignant neoplasm, prostate Colon polyps Mixed Hyperlipidemia Hypertension, Unspecified OGLESBY'S ESOPHAGUS Screening for malignant neoplasm, prostate Neoplasm Of Uncertain Behavior Of Skin Of Ankle Hypertension, Benign Mixed Hyperlipidemia Neop, UB, skin - Hypertension, Benign - Mixed Hyperlipidemia - Hypertension, Unspecified Mixed Hyperlipidemia Tobacco Abuse Hypertension, Benign Hypertension, Benign - Mixed Hyperlipidemia - Tobacco Abuse - Mixed Hyperlipidemia Hypertension, essential NOS Screening for malignant neoplasm, prostate Mixed Hyperlipidemia - Hypertension, essential NOS - Screening for malignant neoplasm, - prostate Mixed Hyperlipidemia Mixed Hyperlipidemia Hypertension, essential NOS Mixed Hyperlipidemia Hypertension, essential NOS Mixed Hyperlipidemia - Hypertension, essential NOS - Hypertension, essential NOS Mixed Hyperlipidemia Screening for malignant neoplasm, prostate OGLESBY'S ESOPHAGUS Hypertension, essential NOS - Mixed Hyperlipidemia - Screening for malignant neoplasm, - prostate OGLESBY'S ESOPHAGUS - Hypertension, essential NOS Mixed Hyperlipidemia Hypertension, essential NOS Routine Medical Exam Mixed Hyperlipidemia Hypertension, essential NOS Screening for malignant neoplasm, prostate OGLESBY'S ESOPHAGUS OGLESBY'S ESOPHAGUS Chronic Disorder, tobacco use Improved Dermatitis NOS Recurrent Routine Medical Exam Routine Hypertension, benign essential Well Controlled Procedures Procedure Date Procedure Unknown Results Test Name Date and Time Measure Units Reference Range Abnormal Flag Status Comments Unknown Encounters Encounter Practice Location Reason(s) Diagnoses Date Provider Providers Description For Visit Copied on Encounter [address] [place] [address] [facility], [facility] 0- VINICIO. [facility] [address] [place], [place], [place] [address]. [place], tel:[phone], 524907 tel:[phone] [place] [address] Surgery Abdominal aortic [facility], aneurysm, KERMIT. 57 [facility] 9 [facility], (primary) S455, García hypertensionEncn [place], [place], tr for f/[place], [address], [place] [address]. tel:+60 cond oth than tel:[phone] sherri neoplm [phone] [facility] Primary Dec- [facility] [employer] [facility], [facility] [address] VINICIO. [facility] [address] [place], [place], [place] [address]. [place], tel:[phone], 013896 tel:[phone] 0001 - [facility] Preeti PVC's (premature Dec-1 SKOVIRA [facility] Inc, Cardiology ventricular 0-201 VINCENT. -57 contractions) 9 4417 Preeti January [facility], [place], [address]. [address], [place] tel:+ tel: [phone] 0001 - [facility] Surgery Elevated blood Dec-0 АННА SAUCEDO. [employer], pressure reading 4-201 30 January 3357 in office with January Santos diagnosis of [address], [place], hypertensionAbdo García Mariano [facility] aortic [place], [place], [place], [address]. [address], [place] without tel: tel: ruptureMalignant [phone] neoplasm of esophagus, unspecifiedEleva rony blood-pressure reading, w/o diagnosis of htnPersonal history of nicotine dependence 0001 - [facility] Primary RingwormEssentia Nov-2 GREE [employer], [facility] VINICIO. [facility] [place] hypertensionPers 9 PC 119 [facility] history of [facility], nicotine [place], [place], García dependenceCntct [address]. [facility], [place], w and expsr to tel:[phone], [place] environ tobacco [address] tel:[phone] smoke (acute) [phone] (chronic) 0001 - [facility] Surgery Elevated blood Jan-2 АННА SHERYL. [employer], pressure reading 0-201 30 January with diagnosis January Santos of [address], [place], hypertensionAbdo García Mariano [facility] aortic [place], [place], [place], [address]. [address], [place] without tel:[phone] tel:60 ruptureMalignant [phone] neoplasm of esophagus, unspecified 0001 - [facility] Primary Nov-0 GREE [employer], [facility] [address] [facility], [place], [place], [place] [address]. [place], tel:[phone], [place] 245164 tel: [phone] 0001 - [facility] Surgery Abdominal aortic Oct-2 АННА SHERYL. [facility], aneurysm, 3 30 January [address], [place] ruptureMalignant [address], Street, neoplasm of [facility] esophagus, [place], [place], [place] [address]. [address], [place] tel:[phone] tel:[phone] 0001 - [facility] Primary Abdominal aortic Dec- [facility], [facility] aneurysm (AAA) VINICIO. [facility] [address] without 9 [address] [place] rupture[address]alignant [address], [facility], neoplasm of [place], [place], [place] [address]. [place], esophagus tel:[phone], [place] 338972 tel:[phone] 0001 - [facility] Primary Microcytic Sep-0 [facility] Inc, [facility] anemiaBarrett's VINICIO. [facility] [place] esophagus with 9 PC 119 [facility] esophagitisEsoph [facility], agitis, [place], [place], García unspecifiedTubul [address]. [place], ar adenoma of tel:[phone], [place] colonOccult GI 306207 tel:[phone] bleeding [phone] 0001 - [facility] Primary Preoperative Sep-0 [facility], [facility] general physical VINICIO. [facility] [place] examinationPrima 9 PC [address] [place] ry , [facility], osteoarthritis [place], [place], García of right [address]. [place], shoulderMyasthen tel:[phone], [place] 168571 tel:[phone] gravisEssential [phone] hypertensionChro jacqui obstructive pulmonary disease, unspecified COPD typeAnemia in other chronic diseases classified elsewhere 0001 - [facility] Primary Oct-2 LORD CORNELIA. S Inc, [facility] 119 [address] , [facility], [place], [place], [place] [address]. [place], tel:[phone], [place] 123898 tel:[phone] 0001 - [facility] Primary Preoperative July- [facility], [facility] examinationProst VINICIO. [address] hetic knee 9 PC 119 Jerrica Galindo implant failure, [facility], subsequent [place], [place], [place] encounter [address]. [place], ^Presence of tel:[phone], [place] unspecified 542998 tel:[phone] artificial knee [phone] joint 0001 - [facility] Primary Preoperative July- SKIFF [facility], [facility] examinationDispl 3- VINICIO. [address] acement of 9 PC 119 Jerrica Galindo internal knee [facility], prosthesis [place], [place], [place] [address]. [place], unspecified tel:[phone], [place] artificial knee 798979 tel:+60 jointMyasthenia [phone] gravis without (acute) exacerbationEsse ntial (primary) hypertensionChro jacqui obstructive pulmonary disease, unspecified COPD typeAnemia, unspecified typeAbnormal CXRPersonal history of nicotine dependenceCntct w and expsr to environ tobacco smoke (acute) (chronic) 0001 - [facility] Primary SKIFF [employer], [facility] 0- VINICIO. [address] Jerrica Galindo [facility], [place], [place], [place] [address]. [place], tel:[phone], [place] 984226 tel:[phone] 0001 - [facility] Primary Essential Dec-0 GREE [employer], [facility] (primary) VINICIO. [address] hypertensionMixe 8 PC 119 Jerrica Galindo d [facility], hyperlipidemiaMy [place], [place] asthenia gravis [address]. [place], without (acute) tel:[phone], [place] exacerbationBarr 764638 tel:+[phone] ett's esophagus [phone] without dysplasiaPersona l history of nicotine dependence 0001 - [facility] Primary Mixed Nov-2 GREE International[employer] [facility], [facility] hyperlipidemiaEs 0- VINICIO. [address] sential 8 PC 119 Jerrica Galindo (primary) [facility], hypertension [place], [place], [place] [address]. [place], tel:[phone], [place] 702821 tel:[phone] 0001 - [facility] Primary Essential Ja-1 SKIFF [employer], [facility] [place] (primary) 6- VINICIO. [facility] 33- [place] hypertensionMyas 8 PC 119 Jerrica [facility], without (acute) [place], [place] exacerbationBarr [address]. [place], ett's esophagus tel:[phone], [place] without 053494 tel:+ dysplasiaImmuniz [phone] ation, single diseasePersonal history of nicotine dependenceCntct w and expsr to environ tobacco smoke (acute) (chronic) 0001 - S Primary Essential [facility], [facility] [place] (primary) 2- VINICIO. [facility] [place] hypertensionMyas 8 PC 119 ting roth [facility], without (acute) [place], [place] exacerbationHemo [address]. [place], rrhoids, tel:[phone], [place] internalCntct w 314297 tel:+ and expsr to [phone] environ tobacco smoke (acute) (chronic) 0001 - [facility] Surgery Third degree [employer], hemorrhoidsEncou 0-201 DINA. 30 33-57 nter for other 8 January Galindo specified [facility], surgical [address], [place], [place], [place], [address], [place] [address]. tel: tel:[phone] - [facility] Surgery Third degree Dec-2 ALDEN [facility], hemorrhoidsEncou 6-201 DINA. 30 33-57 nter for other 7 January Galindo specified [facility], surgical [address], [place], [place], [place], [address], [place] [address]. tel:60 tel:[phone] - [facility] Surgery Third degree Dec-0 [employer], hemorrhoidsEncou 6-201 DINA. 30 33-57 nter for other 7 January Galindo preprocedural [facility], examination [address], [place], [place], [place], [address], [place] [address]. tel: tel:[phone] - [facility] Surgery Third degree Dec- [employer], hemorrhoidsMyast CRAIG. 30 henia gravis 7 [facility] without (acute) Street, [place], exacerbation [address], [place], [place], [address], [place] [address]. tel:+60 tel:[phone] - S Primary Olecranon Oct- [employer], [facility] bursitis of VINICIO. [facility] [place] right elbow 7 [address] [place], [place], [place] [address]. [place], tel:[phone], [place] 771210 tel:[phone] 0001 - [employer], [address] [place] [address], [address], [place] tel:[phone] 0001 - [facility] Primary Essential [employer] Inc, [facility] (primary) VINICIO. [facility] [place] hypertensionMixe 7 PC 119 [facility], [place], [place], [place] asthenia gravis [address]. [place], without (acute) tel:[phone], [place] exacerbationReac 713394 tel:+60 tive airway [phone] disease, mild persistent, uncomplicated 0001 - [facility] Primary Essential [employer], [facility] (primary) VINICIO. [facility] [place] hypertensionMixe 7 PC 119 [facility], [place], [place] asthenia gravis [address]. [place], without (acute) tel:[phone], [place] exacerbation 630310 tel:[phone] 0001 - [facility] Surgery Hemorrhoids, Dec- [employer], internalThird CRAIG. 30 33-57 degree [address], [address], [address], [place], [place], [address], [place] [address]. tel:+60 tel:[phone] - [facility] Primary Essential Mar-0 SKIFF [employer], [facility] [place] (primary) 9 VINICIO. [facility] [address] [place] [address] hypertension 6 PC 119 [facility], [place], [place], [place] [address]. [place], tel:[phone], 298962 tel:[phone] 0001 - [facility] Primary Essential Manuel-0 SKIFF [employer], [facility] [place] (primary) 6- VINICIO. [facility] [address] [place] [address] hypertension 6 PC 119 [facility], [place], [place], [place] [address]. [place], tel:[phone], 932057 tel:[phone] 0001 - [facility] Primary Essential Oct-0 [facility] [employer], [facility] [place] (primary) VINICIO. [facility] [address] hypertensionMixe 5 [address] 119 [facility], [facility] [place], [facility] [address]. [place], assessment, tel:[phone], [facility] 353538 tel:+60 screening, adult [phone] 0001 - [facility] Primary Hypertension, Oct- [facility], [facility] BenignPreoperati VINICIO. [facility] [address] ve 5 PC 119 [facility] examOsteoarthrPremier Health [facility], is of [place], [place], [place] kneeMyasthenia [address]. [place], gravisMixed tel:[phone], Hyperlipidemia 362091 tel:+60 RRETT'S [phone] ESOPHAGUS 0001 - S Primary Hypertension, July- GREE [employer], [facility] BenignMyasthenia 8-201 VINICIO. [facility] [address] gravis 5 [address] 119 [facility], [place], [place], [place] [address]. [place], tel:[phone], 744563 tel:[phone] 0001 - S Primary Myasthenia Apr-0 SKIFF [employer], [facility] gravisMedication 6- VINICIO. [facility] [address] side effect 5 [address] [place], [place], [place] [address]. [place], tel:[phone], [place] 472639 tel:[phone] 0001 - [facility] Primary Neuritis of [facility], [facility] [place] ulnaMyasthenia VINICIO. [facility] [place] gravis 5 [address] [place], [place], [place] [address]. [place], tel:[phone], [place] 306457 tel:[phone] 0001 - [facility] Primary Myasthenia Dec-0 [facility], [facility] gravisHypertensi VINICIO. [facility] - [place] on, Benign [address] [place], [place], [place] [address]. [place], tel:[phone], [place] 277947 tel:[phone] 0001 - [facility] Walk-In HeadacheDouble Nov- CONSOLAZIO [facility], Dickey vision ALEXA. Preeti [address] [place], [place], [place], [address]. [address], [place] tel:[phone] tel:[phone] 0001 - [facility] Primary Pneumonia Oct- [facility], [facility] VINICIO. [facility] [place] [address] [place], [place], [place] [address]. [place], tel:[phone], [place] 100429 tel:[phone] 0001 - [facility] Walk-In SinusitisSinusit Sep-2 ZARRINI [facility] Inc, Center is, Acute AMY. Katie 4 [address] [facility], [facility], [address]. [place], tel:[phone], [place] 650524 tel:[phone] 0001 - S Seborrheic ROMANIAK Referring [facility], Dermatology keratosisEpiderm RADHA. 200 Provider: -57 al cyst 4 [facility], [facility], [address], M, 200 [facility], [place], [place], [address]. [address] [address], [place] tel:[phone] [address], tel:[phone] [place], [id number] [place], [address]. tel:[phone] 0001 - [facility] Primary Hypertension, Nov-0 [facility] Inc, [facility] BenignMixed 8- VINICIO. [facility] 57 [place] HyperlipidemiaBA 3 PC 119 [facility], ESOPHAGUSScseattle va medical centeri [place], [place], [place] ng for malignant [address]. [place], neoplasm, tel:[phone], [place] prostateColon 983929 tel:[phone] polyps [phone] 0001 - S Primary Mixed Nov-0 N. TIOGA [facility], [facility] HyperlipidemiaHy 4201 LAB. . Valley pertension, 3 [facility], [facility] [place]USBism[place], ng for malignant [address], [place] neoplasm, tel:[phone] prostate [phone] 0001 - [facility] Primary Neoplasm Of Apr-3 [facility], [facility] Uncertain 0- VINICIO. [facility] 33-[address] Behavior Of Skin 3 PC 119 [facility], AnkleHyalta vista regional hospitalens[place]ot[place], [place], [place] n, BenignMixed [address]. [place], HyperlipidemiaNe tel:[phone], [place] op, UB, 337750 tel:[phone] skinHypertension [phone] , BenignMixed Hyperlipidemia 0001 - S Primary Hypertension, Dec-0 [employer]. S Inc, [facility] UnspecifiedMixed 3-201 [facility] 119 33-57 [address] HyperlipidemiaTo 2 [facility], [place], [place], [place] n, [address]. [place], BenignHypertensi tel:[phone], [place] on, BenignMixed 712266 tel:+[phone] HyperlipidemiaTo [phone] bacco Abuse 0001 - S Primary Mixed July-2 LORD [employer]. S Inc, [facility] [place] HyperlipidemiaHy 1-201 [facility] 119 33-57 [place] pertension, [address], [facility], NOSScreening for [place], [place], [place] malignant [address]. [place], neoplasm, tel:[phone], [place] prostateMixed 127326 tel:[phone] HyperlipidemiaHy [phone] pertension, essential NOSScreening for malignant neoplasm, prostate 0001 - S Primary Mixed July- N. ANDREA [facility] Inc, [facility] [place] Hyperlipidemia 4-201 LAB. . 33-57 Valley 2 [facility], [place], [address], [place] tel:[phone] 0001 - S Primary Mixed Apr- LORD CORNELIA. [facility] Inc, Care [place] HyperlipidemiaHy 6-201 SPC 119 33-57 [place] pertension, [address], [facility], NOSMixed [place], [place], [place] HyperlipidemiaHy [address]. [place], [place], pertension, tel:[phone], [place] essential [address] tel:[phone] NOSMixed [phone] HyperlipidemiaHy pertension, essential NOS 0001 - [facility] Primary Hypertension, LORD LOCKE. S Inc, Care [place] essential 8-201 UHSPC 119 33-57 [place] NOSMixed [address], [place] [facility], reening for [place], [place], [place] malignant [address]. [place], [place], neoplasm, tel:[phone], [place] prostateBARRETT' 046466 tel:[phone] ESOPHAGUSHyperte nsion, essential NOSMixed HyperlipidemiaSc reening for malignant neoplasm, prostateBARRETT' S ESOPHAGUS 0001 - [facility] Primary Hypertension, July- LORD CORNELIA. S Inc, Care [place] essential 2-201 UHSPC 119 33-57 [place] NOSMixed [address], [facility], [place], [place], García [address]. [place], [place], tel:[phone], [place] 638464 tel:[phone] 0001 - S Primary Hypertension, LORD LOCKE. S Inc, Care [place] essential NOS 4-201 UHSPC 119 33-[address] [place] [address], [facility], [place], [place], [place] [address]. [place], [place], tel:[phone], [place] 371478 tel:[phone] 0001 - [facility] Primary Routine Medical Mar- LORD CORNELIA. [employer], [facility] ExamMixed 8-201 UHSPC 119 33-57 [place] HyperlipidemiaHy 1 [facility], essential [place], [place], [place] [address]. [place], [place], malignant tel:[phone], [place] neoplasm, 042096 tel:[phone] prostateBARRETT' [phone] S ESOPHAGUSRoutine Medical Exam 0001 - [facility] Primary Mar-2 [facility] [employer], [facility] 5-200 VINICIO. [facility] [address] 9 PC 119 [facility], [place], [place], García [address]. [place], [place], tel:[phone], [place] 656863 tel:[phone] 0001 [facility] Primary Hypertension, Nov-3 [facility] [employer], [facility] benign 0-200 VINICIO. [facility] [address] essentialBARRETT 7 PC 119 [facility], ESOPHAGUSDisorde [place], [place], García r, tobacco [address]. [place], [place], useDermatitis tel:[phone], [place] NOS 568011 tel:[phone] Family History Family Member Diagnosis Age At Onset Father Alzheimer's Disease (Cause Of ) Father Immunizations Vaccine Date Status Comments Adacel administered Source: New Immunization Record Payers Payer name Insurance type Covered constitution party ID Authorization(s) Elizabeth Sánchez [id number] Social History Type Description Quantity Date Captured Comments Alcohol Use Details Unknown Caffeine Use Details Unknown Tobacco Use Status Unknown Smoking Status Unknown Vital Signs Date / Height Weight BMI Pulse Blood Temperature Respiratory Body Head BMI Time: Rate Pressure Rate Surface Circumference percentile Area Unknown Chief Complaint And Reason For Visit No information Reason For Referral Reason For Referral Unknown Plan Of Care Date Type Action Status Goal Tobacco cessation counseling completed Referral Ordered: ordered CT Angio Abdominal/Pelvis post endo Referral Ordered: ordered Holter monitor/24 hrs, complete Referral Referred To: ordered WILMA CAM MD 30 [facility] [address] [place] [address], [address] [phone] Ordered: Referrals: Vascular Surgery. WILMA CAM MD. Evaluate and treat Appointment date/timeframe: 2 Weeks Referral Referred To: ordered ORLANDO DELEON NP 40 [facility] Floor 3 [place], [address] [phone] Ordered: Referrals: Gastroenterology. ORLANDO DELEON NP Appointment date/timeframe: 12/14/2018 Referral Ordered: ordered X-RAY EXAM CHEST 2 VIEWS Referral Referred To: ordered FAHAD ARGUETA VENEER SLICING MACHINE OPERATOR 40 [place], [address] [phone] Ordered: Referrals: Gastroenterology. FAHAD GUNDERSONP. Location: [facility]. Follow-up and treat Appointment date/timeframe: 04/01/2018 Referral Referred To: ordered BRIAN NULL [address] [place], [address] [phone] Ordered: BRIAN NULL. Neurology. Follow-up and Treat. Appointment date/timeframe: 03/02/2014 Referral Referred To: ordered RADHA SOUSA [address] [place], [address] [phone] Ordered: RADHA SOUSA. Dermatology. Consult and treat. Appointment date/timeframe: 03/19/2013 Referral Ordered: ordered Chest X-ray, 2 views, Frontal & Lateral Referral Referred To: ordered JENNIFER GARCIA LAYNE [address], [address] [phone] Ordered: JENNIFER GARCIA. Gastroenterology. Consult and treat. Appointment date/timeframe: 04/18/2010 Appointment KAYLEY BERNABE Appointment KAYLEY BERNABE CANCELLED Date Type Problem Goal Intervention Status Start Date Unknown History Of Present Illness Encounter Date Complaint History Of Present Illness No information Functional Status Encounter Date Functional Assessment Cognitive Assessment Unknown Medications Administered Medication Instructions Dosage Effective Dates (start - stop) Status Comments Drug Treatment Unknown Instructions Date Instruction Additional Information Will monitor blood pressures at home . Related to Essential hypertension We would like the blood pressure to be below 130/80 on most occaisions. An ideal blood pressure is around 120/80. If BPs are over 1230 we will adjust the medication, but in the meantime, to get out and take more walks. will start terbinafine iontmetn twice a Related to Ringworm day and call if not improing in a week. I have referred him to Dr. Cam for Related to Abdominal aortic further evaluation. Cautioned that aneurysm (AAA) without rupture should he devlope acute backpain , he should go to the ED. Risks and benefits of new medication Related to Malignant neoplasm of discussed. 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 I would recommend holding the surgery Related to Anemia in other chronic to see if we can correct the anemia diseases classified elsewhere Risks and benefits of new medication discussed. Will check the stool fo blood. Stay off the aspirin and after testing the stool , start iron. Scheduled for right shoulder surgery. Related to Primary osteoarthritis of right shoulder [employer]. Related to Myasthenia gravis Use the ventolin regularly before Related to Chronic obstructive surgery. pulmonary disease, unspecified COPD type Scheduled to revision on 08/20/18. 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 Related to Preoperative Respiratory concerns have cleared. examination Will continue the albuterol inhaler through the time of surgery. Mild anemia which is chronic. Related to Anemia, unspecified type i will treat with azithromycin increase Related to Chronic obstructive inhaler use . Recheck cxr next week. pulmonary disease, unspecified COPD type Do not take the lisinopril within 24 Related to Essential ( primary) hours of surgery hypertension Recommedations deferred t Dr. Null. Related to Myasthenia gravis without (acute) exacerbation Once respiratory staus is optimized, Related to Preoperative and pending recommendations of Dr. david Null, there will be no contraindications to surgery.. Climbed 11 fight of stairs this past March without cardiac symptoms. continue to follow with Dr. Null. Related to Myasthenia gravis without (acute) exacerbation You may want to ask Dr. Null whether Related to Mixed hyperlipidemia he thinks there is an added concern of taking a statin with the myasthenia. We can change from lisinopril 20mg to Related to Essential ( primary) losartan 100mg once daily to avoid the hypertension concern about lung cancer. Call if you woul like me to proceed with the change. Discuyss shingles immunizatio with Dr. Related to Immunization, francy Null. disease Follw up with GI. Related to Oglesby's esophagus without dysplasia Continue the lisinopril. We would like Related to Essential ( primary) the blood pressure to be below 130/80 hypertension on most occaisions. An ideal blood pressure is around 120/80. Follow up with labs and visit in six months. Will folow up with Dr. Null in one Related to Myasthenia gravis month. without (acute) exacerbation Will continue to follow [facility] neurology. Related to Myasthenia gravis without (acute) exacerbation Will start monitoring more closely at Related to Essential ( primary) home. he has recently been losing hypertension weight through dieting and will cninue to do so. will coninue lisinopril 20mg daily. Continues a higher fiber diet and lexi Related to Hemorrhoids, internal regularly Wound healing well. No signs of Related to Third degree infection. Given wound care hemorrhoids instructions. Given dietary recommendations for leakage RTC prn Wound healing well. No signs of Related to Third degree infection. Given wound care hemorrhoids instructions. Follow up 2-3 weeks Patient with significant Related to Third degree internal/external hemorrhoids. hemorrhoids Procedure options, risks and benefits explained and patient understands and agrees. Pre-op risk sheet given. Questions answered and patient will schedule at their convience. Patient with significant Related to Third degree internal/external hemorrhoids. hemorrhoids Procedure options, risks and benefits explained and patient understands and agrees.Will discuss surgical risk with neurology from myasenthia gravis Continue to follow with Dr. Martinez. Related to Myasthenia gravis without (acute) exacerbation Use the ;albuterol inhaler up to every Related to Reactive airway four hours as needed. If the symptoms disease, mild persistent, do not improve over the next month, we uncomplicated will start a steroid inhaler. continue the lisinopil. Related to Essential (primary) hypertension Will recheck the ipi9d profile with the Related to Mixed hyperlipidemia next lab t3ests. Continue the lisinopril. Follow up in 6 Related to Essential ( primary) months. Call when you need refills. hypertension States that he was told by Dr. Null Related to Myasthenia gravis not to have a flu shot . Will be without (acute) exacerbation following up in a couple months. Patient with significant Related to Hemorrhoids, internal internal/external hemorrhoids. Procedure options, risks and benefits explained and patient understands and agrees. Pre-op risk sheet given. Questions answered.Patient will need perop clearence Continue the lisinopril. Related to Essential (primary) hypertension Will recheck lipid profile in a couple Related to Mixed hyperlipidemia months after he has tapered off the prednisone completely and become more active. Will continue lisinopril. Related to Essential (primary) hypertension controled. Related to OGLESBY'S ESOPHAGUS I am told that anesthesiology is aware Related to Myasthenia gravis of the myasthenia his medications. continue current medications Related to Hypertension, Benign Medical condition stable. To proceed Related to Osteoarthritis of knee with right knee replacement. No contraindications to proceding with Related to Preoperative exam surgery. Continue to follow with Dr. Null. Will Related to Myasthenia gravis be appplying for disability due to myasthenia and his knee. Continue the lisinopril for now, though Related to Hypertension, Benign we can consider sopping it later. As the mycophenilate can increase Related to Medication side effect risk of infection, I would consisder having an immunization against pneumonia. Continue to follow with Dr. Null. Related to Myasthenia gravis Continue as directed by the Related to Myasthenia gravis neurologist. Avoid extremes of flexion or extension Related to Neuritis of ulna of the neck . Apply heat and gently stretch the the muscles in the shoulder. Call if the numbness worsens or the strength of your hand is affected. Continue pyridostigmine and follow up Related to Myasthenia gravis with Dr. Null. Continue to monitor bloodpressure. We Related to Hypertension, Benign would like the blood pressure to be below 140/90 on most occaisions. An ideal blood pressure is around 120/80. Go to [facility] for Further Evaluation. Related to Headache Thank you for choosing the [facility]. We hope that you will be feeling better soon.Any condition can change and some diseases may worsen despite proper treatment. Other problems may begin with vague or unusual symptoms and only over time will the problem become more clear, making it possible to arrive at the correct diagnosis. Your visit today is not a substitute for, or an effort to provide complete medical care. In most cases, you should let your primary care doctor check you again. Tell your doctor about any new or lasting problems. If you do not have a primary care provider, you have been given a list today of local providers who are accepting new patients. All x-rays are interpreted by a radiologist, usually within 48 hours. If there is any important difference between the radiologist's interpretation and what you were told today by the provider, you will be notified. If you had cultures done today, the results will be available in 72 hours, depending on the specimen.- Start the amoxicillin , two caps twice Related to Pneumonia day. Use an expectorant (guaifenacin) and drink plenty of fluids. Use the albuterol Up to every four hours. Call if not improving in a couple days. Rest, increase fluid, take tylenol for Related to Sinusitis pain or feverf/u with your pcp in 7 days if not better, sooner if getting worse or having new symptoms.
--- OUTSIDE RECORDS SUMMARY | 2019-04-19 14:16 | XMS REPORT | Continuity of Care Document ---
:1955 Author Organization [facility] Address [address] [place] [address] Phone Care Team Providers Name Role Phone KERMIT CARABALLO Unavailable Unavailable Allergies, Adverse Reactions, Alerts Substance Reaction Status amoxicillin Other Active Medications Medication Instructions Dosage Effective Dates (start - stop) Status Comments Drug Treatment Unknown Problems Condition Effective Dates (start - stop) Clinical Status Abdominal aortic aneurysm, without rupture Essential (primary) hypertension Encntr for f/u exam aft trtmt for cond - oth than malig neoplm Procedures Procedure Date Postop followup visit Results Test Name Date and Time Measure Units Reference Range Abnormal Flag Status Comments Unknown Encounters Encounter Practice Location Reason(s) Diagnoses Date Provider Providers Description For Visit Copied on Encounter 2018 [facility] Care needs Abdominal aortic [employer] Surgery (chief aneurysm, without 8-201 KERMIT. Mateo complaint) ruptureEssential [address], (primary) [facility]tr [place], [place], for f/u exam aft S[address], [address], [place] trtmt for cond oth [place]ía tel:[phone] than malig neoplm [place], [place], 74524[address]. tel:[phone] 2018 [facility] Dec- [employer], [address] Surgery 6-201 DINA. [place] [address], [place], [place], [address] [address], [place] [address], tel:[phone] García [phone] [place], [address]. tel:[phone] 0001 - [facility] Mar-2 [employer], [address] Primary 5-200 JAMES. [place] [facility] 9 [facility] 119 [place], [place], [place] [address], [place], tel:[phone] [place], [phone]. tel:[phone] Family History Family Member Diagnosis Age At Onset Father Alzheimer's Disease (Cause Of ) Father Immunizations Vaccine Date Status Comments Adacel administered Source: New Immunization Record Payers Payer name Insurance type Covered republican ID Authorization(s) Elizabeth Sánchez [id number] Social History Type Description Quantity Date Captured Comments Alcohol Use Details No Caffeine Use Details coffee 2 cups per day Tobacco Use Status Ex-cigarette smoker Smoking Status Former smoker Smoking Tobacco Use Cigarette: Age Stopped: 56 Cigarette: No Details Available Details Vital Signs Date / Height Weight BMI Pulse Blood Temperature Respiratory Body Head BMI Time: Rate Pressure Rate Surface Circumference percentile Area 70.50 275.58 38.9 92 141/85 97.10 F /min in lbs 8 /min mm[Hg] 1:28 kg/m PM eter (2) Chief Complaint And Reason For Visit Most recent encounter only, dated '03/10/2019 13:16'. Care needs (chief complaint). Description: Post op visit surgery 03/01/19 Endovascular aortic aneurysm treatment with Medtronic Endurant E2S device. Device was used 28 diameter main body, 103 length, right limb 16 21 24 and left limb 16 24 124. Reason For Referral Reason For Referral Unknown Plan Of Care Date Type Action Status Referral Ordered: ordered CT Angio Abdominal/Pelvis post endo Appointment KAYLEY BERNABE Appointment KAYLEY BERNABE CANCELLED Date Type Problem Goal Intervention Status Start Date Unknown History Of Present Illness Encounter Date Complaint History Of Present Illness Care needs Post op visit surgery 03/01/19 Endovascular aortic aneurysm treatment with Medtronic Endurant E2S device. Device was used 28 diameter main body, 103 length, right limb 16 21 24 and left limb 16 24 124. Functional Status Encounter Date Functional Assessment Cognitive Assessment Unknown Medications Administered Medication Instructions Dosage Effective Dates (start - stop) Status Comments Drug Treatment Unknown Instructions Date Instruction Additional Information Unknown
--- OUTSIDE RECORDS SUMMARY | 2019-04-19 14:16 | XMS REPORT | Continuity of Care Document ---
:1955 Author Organization [address] [place] [address] [place] [address] Phone Care Team Providers Name Role Phone VINICIO WEAVER MD Unavailable Unavailable Allergies, Adverse Reactions, Alerts Substance Reaction Status amoxicillin Other Active Medications Medication Instructions Dosage Effective Dates (start - stop) Status Comments Drug Treatment Unknown Problems Condition Effective Dates (start - stop) Clinical Status Unknown Procedures Procedure Date Procedure Unknown Results Test Name Date and Time Measure Units Reference Range Abnormal Flag Status Comments Unknown Encounters Encounter Practice Location Reason(s) Diagnoses Date Provider Providers Description For Visit Copied on Encounter [address] [place] [address] Physician [facility], [place] [address], [facility], [address]. tel:[phone] tel:[phone] [place] [address] Surgery [facility], DINA. [place] [address] [place], [place], Suite [facility], [address], [facility] tel:[phone] [facility] 180740 [address]. tel:[phone] [place] [address] Primary [facility] 119 [facility], [address], [facility], [address]. tel:[phone] tel:[phone] Family History Family Member Diagnosis Age At Onset Father Alzheimer's Disease (Cause Of ) Father Immunizations Vaccine Date Status Comments Adacel administered Source: New Immunization Record Payers Payer name Insurance type Covered green party ID Authorization(s) Unknown Social History Type Description Quantity Date Captured Comments Unknown Vital Signs Date / Height Weight BMI Pulse Blood Temperature Respiratory Body Head BMI Time: Rate Pressure Rate Surface Circumference percentile Area Unknown Chief Complaint And Reason For Visit No information Reason For Referral Reason For Referral Unknown Plan Of Care Date Type Action Status Appointment KAYLEY ALEMAN Appointment KAYLEY ALEMAN CANCELLED Date Type Problem Goal Intervention Status Start Date Unknown History Of Present Illness Encounter Date Complaint History Of Present Illness No information Functional Status Encounter Date Functional Assessment Cognitive Assessment Unknown Medications Administered Medication Instructions Dosage Effective Dates (start - stop) Status Comments Drug Treatment Unknown Instructions Date Instruction Additional Information Unknown
--- OUTSIDE RECORDS SUMMARY | 2019-04-19 14:16 | XMS REPORT | Continuity of Care Document ---
:1955 Author Organization [facility] Address [address] [place] [address] Phone Care Team Providers Name Role Phone VINICIO WEAVER MD Unavailable Unavailable Allergies, Adverse Reactions, Alerts Substance Reaction Status amoxicillin Other Active Medications Medication Instructions Dosage Effective Dates Status Comments (start - stop) metoprolol succinate take 1 tablet by oral 25 MG - Active ER 25 mg route every day tablet,extended release 24 hr Problems Condition Effective Dates (start - stop) Clinical Status Unknown Procedures Procedure Date Procedure Unknown Results Test Name Date and Time Measure Units Reference Range Abnormal Flag Status Comments Unknown Encounters Encounter Practice Location Reason(s) Diagnoses Date Provider Providers Description For Visit Copied on Encounter 2018 [facility] Primary [email or web address] [facility], [facility] [address], [place], [address], [facility], [address]. tel:[phone] tel:[phone] 2018 - [facility] Surgery [employer] [facility], DINA. [place] [address] [place], [place], [place] [address], [address], [facility] tel:[phone] [facility] [address]. tel:[phone] 2018 [facility] Primary [email or web address] [facility], [facility] [address] [place], [place], [place], [address], [facility], [address]. tel:[phone] tel:[phone] Family History Family Member Diagnosis Age At Onset Father Alzheimer's Disease (Cause Of ) Father Immunizations Vaccine Date Status Comments Adacel administered Source: New Immunization Record Payers Payer name Insurance type Covered libertarian ID Authorization(s) Unknown Social History Type Description [...]
--- OUTSIDE RECORDS SUMMARY | 2019-04-19 14:16 | XMS REPORT | Continuity of Care Document ---
:1955 Author Organization [facility] Address [address] [place] [address] Phone Support Name Relationship Address Phone Ron Aleman spouse [address] [phone] [place] [address] RON ALEMAN Unavailable Unavailable [phone] VINICIO WEAVER Unavailable Unavailable Unavailable Allergies, Adverse Reactions, Alerts Substance [...] Description For Visit Copied on Encounter 2018 [facility], [place], [place], [facility], tel:[phone] [place] [address] Surgery [facility], DINA. [place] [address] [place], [place], [place] [address], [facility], [facility] tel:[phone] 442899 [address]. tel:[phone] [place] [address] Primary [facility], [facility] [address], [facility] [place], [address]. tel:[phone] tel:[phone] Family History Family Member Diagnosis Age At [...]
--- OUTSIDE RECORDS SUMMARY | 2019-04-19 14:16 | XMS REPORT | Continuity of Care Document ---
:1955 Author Organization 0001 - [employer] Address [address] [place] [address] Phone Care Team Providers Name Role Phone TAE QUINTERO MD Unavailable Unavailable Allergies, Adverse Reactions, Alerts Substance Reaction Status amoxicillin Other Active Medications Medication Instructions Dosage Effective Status Comments Dates (start - stop) Ventolin HFA 90 inhale 2 puff by 2 puff - Active mcg/actuation Inhalation route aerosol inhaler every 4 - 6 hours as needed metoprolol succinate take 1 tablet by 25 MG - Active ER 25 mg oral route every tablet,extended day release 24 hr omeprazole 40 mg take 1 capsule by 40 MG - Active capsule,delayed ORAL route 2 times release every day before a meal famotidine 40 [...] - Active PT hospitalized bromide 60 mg tablet oral route every and this started 6 hours on 02/24/14 mycophenolate take 2 tablet by 1000 MG - Active mofetil 500 mg oral route 2 times tablet every day ProAir RespiClick 90 inhale 2 puff by 180 MCG - Active mcg/actuation breath inhalation route activated every 4 - 6 hours as needed Miralax 17 gram/dose take (17G) by 17 G - Active oral powder oral route every day mixed with 8 oz. water, juice, soda, coffee or tea Aspir-81 81 mg take 1 tablet by 81 MG - Active tablet,delayed oral route every release day multivitamin capsule take 1 capsule by - Active oral route every day Problems Condition Effective Dates (start - stop) Clinical Status Abdominal aortic aneurysm, without rupture Essential (primary) hypertension Encntr for f/u exam aft trtmt for cond - oth than malig neoplm PVC's (premature ventricular contractions) Elevated blood [...] Providers Description For Visit Copied on Encounter 2019 - [facility] Preeti [facility] Inc, Cardiology [place]. 0 [address] [place], [place], [address]. [address], [place] tel:[phone] tel:[phone] 0001 [facility] Primary Dec-3 [facility], [facility] 0 VINICIO. [facility] [address] [place] [address] 9 119 [place], [place], [place] [address]. [place], tel:[phone], [place] 940057 tel:[phone] 0001 - [facility] Surgery Abdominal aortic Dec- JIN S Inc, aneurysm, [place]. [facility] 9 [facility], (primary) S455, [facility], tr [place], [address], [place] [address]. tel:+60 cond oth than tel:[phone] sherri neoplm [phone] - [facility] Primary Dec-1 SKIFF S Inc, Care Watson 2 [facility] [address] 119 [place], [place], [place] [address]. [place], tel:+ [phone], [place] 249344 tel: [phone] 0001 - [facility] Preeti PVC's (premature Feb- SKOVIRA S Inc, Cardiology ventricular 0-201 VINCENT. 33-57 contractions) 9 4417 Preeti [facility], [facility], [place], [address]. [address], [place] tel: tel: [phone] 0001 - [facility] Surgery Elevated blood Feb- АННА SAUCEDO. [employer], pressure reading 4-201 30 Mateo 33-57 in office with Mateo Santos diagnosis of [address], hypertensionAbdo García Mariano [facility] aortic [place], [place], [address]. [address], [place] without tel: tel: ruptureMalignant [phone] neoplasm of esophagus, unspecifiedEleva rony blood-pressure reading, w/o diagnosis of htnPersonal history of nicotine dependence 0001 - [facility] Primary RingwormEssentia Nov-2 [employer] Inc, Care [facility] VINICIO. [facility] [address] hypertensionPers 9 PC 119 Jerrica Galindo onal history of [facility], nicotine [place], [place], Garc[place] dependenceCntct [address]. [place], w and expsr to tel:[phone], [place] environ tobacco 498756 tel:60 smoke (acute) [phone] (chronic) 0001 - [facility] Surgery Elevated blood CLOUD SHERYL. [employer], pressure reading 0-201 30 [place] 57 with diagnosis Mateo Santos of [address], [place], hypertensionAbdo García García [facility] aortic [place], [place], [address]. [address], [place] without tel:60 tel:60 ruptureMalignant [phone] neoplasm of esophagus, unspecified 0001 - S Primary Nov-0 [employer] Inc, Care Watson [facility] [address] 119 ting Galindo [facility], [place], [place], [place] [address]. [place], tel:[phone], [place] 193381 tel:+ [phone] 0001 - [facility] Surgery Abdominal aortic Dec-2 CLOUD SHERYL. [facility] Inc, aneurysm, [address] [place] [address], [place] ruptureMalignant [address], Street, neoplasm of García García esophagus, [place], unspecified [address]. [address], [place] tel:+[phone] tel:[phone] 0001 - [facility] Primary Abdominal aortic Dec- [facility], [facility] aneurysm (AAA) 8 VINICIO. [facility] [address] without 9 [address] [place] [address], [facility], neoplasm of [place], [place], [place] [address]. [place], esophagus tel:[phone], [place] 299631 tel:+ [phone] 0001 - [facility] Primary Microcytic Sep-0 [facility], [facility] anemiaBarrett's VINICIO. [facility] [address] esophagus with 9 PC [address] Mateo esophagitisEsoph [facility], agitis, [place], [place], Garc[place] unspecifiedTubul [address]. [place], ar adenoma of tel:[phone], [place] colonOccult GI 875754 tel:+[phone] bleeding [phone] 0001 - [facility] Primary Preoperative Sep-0 [facility], [facility] general physical 3- VINICIO. [facility] [address] examinationPrima 9 PC [address] Mateo ry [facility], osteoarthritis [place], [place], [place] of right [address]. [place], shoulderMyasthen tel:[phone], [place] 413190 tel:+60 gravisEssential [id number] hypertensionChro jacqui obstructive pulmonary disease, unspecified COPD typeAnemia in other chronic diseases classified elsewhere 0001 - [facility] Primary Oct- LORD CORNELIA. S Inc, Care Watson [facility] [address], [facility], [place], [place], [place] [address]. [place], tel:[phone], [place] 995054 tel:[phone] 0001 - [facility] Primary Preoperative July-2 SKIFF [facility] Inc, [facility] examinationProst 8- VINICIO. [address] hetic knee 9 PC 119 Jerrica Galindo implant failure, [facility], subsequent [place], [place], [place] encounter [address]. [place], ^Presence of tel:[phone], [place] unspecified 750298 tel:+60 artificial knee [phone] joint 0001 - S Primary Preoperative July- SKIFF [facility] Inc, [facility] examinationDispl 3- VINICIO. [address] acement of 9 PC 119 Jerrica Galindo internal knee [facility], prosthesis [place], [place], [place] ^[place] [address]. [place], unspecified tel:[phone], [place] artificial knee 765305 tel:+60 jointMyasthenia [phone] gravis without (acute) exacerbationEsse ntial (primary) hypertensionChro jacqui obstructive pulmonary disease, unspecified COPD typeAnemia, unspecified typeAbnormal CXRPersonal history of nicotine dependenceCntct w and expsr to environ tobacco smoke (acute) (chronic) 0001 - S Primary July- SKIFF [employer] Inc, [facility] 0- VINICIO. [address] 9 PC 119 ting Galindo [facility], [place], [place], [place] [address]. [place], tel:[phone], [place] 608403 tel:[phone] 0001 - S Primary Essential Dec-0 [facility], [facility] (primary) 3- VINICIO. [address] hypertensionMixe 8 PC 119 ting Galindo d [facility], hyperlipidemiaMy [place], [place], [place] asthenia gravis [address]. [place], without (acute) tel:[phone], [place] exacerbationBarr 935018 tel:+[phone] ett's esophagus [phone] without dysplasiaPersona l history of nicotine dependence 0001 - S Primary Mixed Nov-2 [facility] Inc, [facility] hyperlipidemiaEs 0- VINICIO. [address] sential 8 PC 119 ting Mateo (primary) [facility], hypertension [place], [place], [place] [address]. [place], tel:[phone], [place] 123059 tel:[phone] 0001 - S Primary Essential Sep- SKIFF [employer] Inc, Care Watson (primary) VINICIO. [facility] [address] hypertensionMyas 8 PC 119 ting Mateo [facility], without (acute) [place], [place] exacerbationBarr [address]. [place], ett's esophagus tel:[phone], [place] without 332702 tel:+60 dysplasiaImmuniz [id number] ation, single diseasePersonal history of nicotine dependenceCntct w and expsr to environ tobacco smoke (acute) (chronic) 0001 - S Primary Essential SKIFF [facility] Inc, Care [place] (primary) VINICIO. [facility] [address] hypertensionMyas 8 PC 119 ting Mateo [facility], without (acute) [place], [place] exacerbationHemo [address]. [place], rrhoids, tel:[phone], [place] internalCntct w 150664 tel:+60 and expsr to [phone] environ tobacco smoke (acute) (chronic) 0001 - S Surgery Third degree Mar- [employer] Inc, hemorrhoidsEncou 0-201 DINA. 30 33-57 nter for other 8 Mateo Galindo [facility], surgical [address], [place], [place], [place], [address], [place] [address]. tel: tel:[phone] - S Surgery Third degree Dec-2 [employer] Inc, hemorrhoidsEncou 6-201 DINA. 30 33-57 nter for other 7 Mateo Galindo [facility], surgical [address], [place], [place], [place], [address], [place] [address]. tel: tel:[phone] - S Surgery Third degree Dec-0 [employer] Inc, hemorrhoidsEncou 6-201 DINA. 30 33-57 nter for other 7 Mateo Galindo preprocedural [facility], examination [address], [place], [place], [address], [place] [address]. tel:+60 tel:[phone] - S Surgery Third degree Oct- [employer] Inc, hemorrhoidsMyast [place]. 30 henia gravis 7 Mateo Galindo without (acute) Street, [place], exacerbation [address], [place], [place], [address], [place] [address]. tel:+60 tel:[phone] - S Primary Olecranon Oct- [employer] Inc, Care Watson bursitis of VINICIO. [facility] [address] right elbow 7 PC [address] [place], [place], [place] [address]. [place], tel:[phone], [place] 733814 tel:[phone] 0001 - Sep-0 [employer], [address] [place] [address], [address], [place] tel:[phone] 0001 - S Primary Essential Sep-0 [employer] Inc, Care Watson (primary) VINICIO. [facility] [address] hypertensionMixe 7 PC 119 [facility], [place], [place], [place] asthenia gravis [address]. [place], without (acute) tel:[phone], [place] exacerbationReac 369572 tel:[phone] tive airway [phone] disease, mild persistent, uncomplicated 0001 - S Primary Essential Manuel-0 [employer] Inc, Care Watson (primary) VINICIO. [facility] [address] hypertensionMixe 7 PC 119 [facility], [place], [place], [place] asthenia gravis [address]. [place], without (acute) tel:[phone], [place] exacerbation 787589 tel:[phone] 0001 - S Surgery Hemorrhoids, Oct- [employer] Inc, internalThird DINA. 30 degree 6 Mateo Galindo [facility], [address], [place], [place], [address], [place] [address]. tel: tel:[phone] - [facility] Primary Essential Mar-0 SKIFF [facility] Inc, Care [place] (primary) [address] hypertension 6 PC 119 [facility], [place], [place], [place] [address]. [place], tel:[phone], [place] 609767 tel: [phone] 0001 - S Primary Essential Manuel-0 SKIFF [facility] Inc, Care [place] (primary) VINICIO. [address] hypertension 6 PC 119 [facility], [place], [place] [address]. [place], tel:[phone], [place] 492243 tel: [phone] 0001 - S Primary Essential Oct-0 SKIFF [facility] Inc, Care [place] (primary) VINICIO. [facility] [address] hypertensionMixe 5 PC 119 [facility], hyperlipidemiaPe [place], [facility] [address]. [place], assessment, tel:[phone], [place] general 837919 tel: screening, adult [phone] 0001 - S Primary Hypertension, Oct- SKIFF [employer] Inc, Care Watson BenignPreoperati VINICIO. [facility] [address] ve [address] [facility] examOsteoarthrit [facility], is of [place], [place] kneeMyasthenia [address]. [place], gravisMixed tel:[phone], [place] HyperlipidemiaBA 939953 tel: RRETT'S [phone] ESOPHAGUS 0001 - S Primary Hypertension, July- [facility] [employer] Inc, Care Watson BenignMyasthenia 8 VINICIO. [facility] [address] gravis 5 PC 119 [facility], [place], [place], [place] [address]. [place], tel:[phone], [place] 649333 tel: [phone] 0001 - S Primary Myasthenia Apr-0 SKIFF [facility], Care Watson gravisMedication VINICIO. [facility] [address] [place] [address] side effect 5 PC 119 [place], [place], [place] [address]. [place], tel:[phone], [place] 857784 tel:[phone] 0001 - [facility] Primary Neuritis of [facility], [facility] ulnaMyasthenia VINICIO. [facility] [address] [place] [address] gravis 5 PC 119 [place], [place], [place] [address]. [place], tel:[phone], [place] 620197 tel:[phone] 0001 - [facility] Primary Myasthenia Dec-0 [facility] Inc, [facility] gravisHypertensi VINICIO. [facility] [address] on, Benign 4 PC 119 [place], [place] [address]. [place], tel:[phone], [place] 946376 tel:[phone] 0001 - [facility] Walk-In HeadacheDouble Nov-2 CONSOL[employer]IO S Inc, [place] vision ALEXA. Preeti 4 [address] [place], [place], [place], [address]. [address], [place] tel:[phone] tel:[phone] 0001 - [facility] Primary Pneumonia Oct- [facility] WITH [facility] S Inc, [facility] VINICIO. [facility] [address] [place], [place] [address]. [place], tel:[phone], [place] 275078 tel:[phone] 0001 - [facility] Walk-In SinusitisSinusit Sep-2 ZARRINI S Inc, Center is, Acute AMY. Katie 4 [address] [facility], [facility], [address]. [place], tel:[phone], [place] 143860 tel:[phone] 0001 - S Seborrheic [facility] Referring S Inc, Dermatology keratosisEpiderm 3- RADHA. 200 Provider: 3357 al cyst 4 [facility], [facility], [address], M, 200 [facility], [place], [place], [address]. [address] [address], [place] tel:+60 [address], tel:[phone] Preeti, [id number] [place], [address]. tel:[phone] 0001 - [facility] Primary Hypertension, Nov-0 [facility], [facility] BenignMixed 8-201 VINICIO. [facility] [address] HyperlipidemiaBA 3 PC 119 [facility], ESOPH[place]USScreen[place]im[place], [place], [place] ng for malignant [address]. [place], neoplasm, tel:[phone], [place] prostateColon 329127 tel:[phone] polyps [phone] 0001 - S Primary Mixed Nov-0 N. TIOGA S Inc, [facility] HyperlipidemiaHy 4-201 LAB. . [address] pertension, 3 [facility], 'S [place]OPH[place]USP[place], [place], ng for malignant [address], [place] neoplasm, tel:[phone] prostate [phone] 0001 - [facility] Primary Neoplasm Of Apr-3 [facility], [facility] Uncertain 0-201 VINICIO. [facility] [address] Behavior Of Skin [address] [facility], [place], [place], Garc[place] n, BenignMixed [address]. [place], HyperlipidemiaNe tel:[phone], [place] op, [place], 169657 tel:+60 skinHypertension [phone] , BenignMixed Hyperlipidemia 0001 - S Primary Hypertension, Dec-0 LORD CORNELIA. S Inc, [facility] UnspecifiedMixed 3-201 [facility] 119 [address] HyperlipidemiaTo 2 [facility], AbuseHypertCuba, [place], [place] n, [address]. [place], BenignHypertensi tel:[phone], [place] on, BenignMixed 188890 tel:+60 HyperlipidemiaTo [phone] bacco Abuse 0001 - S Primary Mixed July- LORD CORNELIA. [employer] Inc, Care Watson HyperlipidemiaHy 1-201 SPC 119 [address] pertension, [address], [facility], NOSScreening for [place], [place] malignant [address]. [place], neoplasm, tel:[phone], [place] prostateMixed 716881 tel:+60 HyperlipidemiaHy [phone] pertension, essential NOSScreening for malignant neoplasm, prostate 0001 - S Primary Mixed July- NEstela MENDEZ [employer] Inc, Care [place] Hyperlipidemia 4-201 LAB. . [address] [place] 2 [facility], [place], [address], [place] tel:[phone] 0001 - S Primary Mixed LORD NORRIS [employer] Inc, Care Watson HyperlipidemiaHy 6-201 SPC 119 [address] pertension, [address], [facility], NOSMixed [place], [place] HyperlipidemiaHy [address]. [place], pertension, tel:[phone], [place] essential 226931 tel:+60 NOSMixed [phone] HyperlipidemiaHy pertension, essential NOS 0001 - [facility] Primary Hypertension, LORD NORRIS [employer] Inc, Care Watson essential 8-201 SPC 119 [address] NOSMixed [address], [place] [facility], reening for [place], [place] malignant [address]. [place], neoplasm, tel:[phone], [place] prostateBARRETT' 129615 tel:[phone] ESOPHAGUSHyperte nsion, essential NOSMixed HyperlipidemiaSc reening for malignant neoplasm, prostateBARRETT' S ESOPHAGUS 0001 - S Primary Hypertension, 0 LORD LOCKE. [employer] Inc, Care Watson essential 2-201 [facility] 119 [address] NOSMixed [address], [place] Hyperlipidemia [facility], [place], [place], [place] [address]. [place], tel:[phone], [place] 963309 tel:[phone] 0001 - S Primary Hypertension, LORD NORRIS [facility], [facility] essential NOS 4-201 SP 119 [address] 1 [facility], [place], [place], [place] [address]. [place], tel:[phone], [place] 924659 tel:[phone] [place] [address] Primary Routine Medical Mar- LORD LOCKE. [facility], [facility] ExamMixed 8-201 [facility] 119 [address]57 [place] HyperlipidemiaHy 1 [facility], essential [place], [place], [place] [address]. [place], malignant tel:[phone], [place] neoplasm, 863183 tel:+[phone] prostateBARRETT' [phone] S ESOPHAGUSRoutine Medical Exam 0001 - [facility] Primary Mar-[address] [facility], [facility] 5-200 VINICIO. [facility] [address] 9 [address] 119 [facility], [place], [place], [place] [address]. [place], tel:[phone], [place] 440353 tel:[phone] [place] [address] Primary Hypertension, Nov-[address] [facility], [facility] benign 0-200 VINICIO. [facility] [address] essentialBARRETT 7 PC 119 [facility], ESOPHAGUSDisorde [place], [place], [place] r, tobacco [address]. [place], useDermatitis tel:[phone], [place] NOS 553803 tel:[phone] Family History Family Member Diagnosis Age At Onset Father Alzheimer's Disease (Cause Of ) Father Immunizations Vaccine Date Status Comments Adacel administered Source: New Immunization Record Payers Payer name Insurance type Covered republican ID Authorization(s) Aetjasiel Sánchez [id number] Social History Type Description Quantity Date Captured [...] Referred To: ordered WILMA CAM MD 30 [facility] [address] [place] [address], [address] [phone] Ordered: Referrals: Vascular Surgery. WILMA CAM MD. Evaluate and treat Appointment date/timeframe: 2 Weeks Referral Referred To: ordered ORLANDO DELEON NP 40 [facility] Floor 3 [place], [phone] Ordered: Referrals: Gastroenterology. ORLANDO DELEON NP Appointment date/timeframe: 12/14/2018 Referral Ordered: ordered X-RAY EXAM CHEST 2 VIEWS Referral Referred To: ordered FAHAD ARGUETA CHARGE ENTRY CLERK [address] [place], [address] [phone] Ordered: Referrals: Gastroenterology. FAHAD ARGUETA CHARGE ENTRY CLERK. Location: [facility]. Follow-up and treat Appointment date/timeframe: 04/01/2018 Referral Referred To: ordered BRIAN NULL [address] [place], [address] [phone] Ordered: BRIAN NULL. Neurology. Follow-up and Treat. Appointment date/timeframe: 03/02/2014 Referral Referred To: ordered RADHA SOUSA [address] [place], [address] [phone] Ordered: RADHA SOUSA. Dermatology. Consult and treat. Appointment date/timeframe: 03/19/2013 Referral Ordered: ordered Chest X-ray, 2 views, Frontal & Lateral Referral Referred To: ordered JENNIFER GARCIA LAYNE [address], [address] [phone] Ordered: JENNIFER GARCIA. Gastroenterology. Consult and treat. Appointment date/timeframe: 04/18/2010 Appointment KAYLEY BERNABE Appointment KAYLEY BERNABE Appointment KAYLEY BERNABE CANCELLED [...] follow lower third of esophagus with his remote ruby on rails developer in [place]. I would recommend holding the surgery Related [...] me to proceed with the change. Discuyss omari immunizatio with Related to Immunization, francy Null. disease Follw [...] without (acute) exacerbation Will continue to follow [facility] neurology. Related to Myasthenia gravis without (acute) [...] agrees.Will discuss surgical risk with neurology from [facility] Continue to follow with Dr. Martinez. Related [...] blood pressure is around 120/80. Go to [facility] for Further Evaluation. Related to Headache Thank [...]
--- OUTSIDE RECORDS SUMMARY | 2019-04-19 14:16 | XMS REPORT | Continuity of Care Document ---
:1955 Author Organization [facility] Placester [facility] Address [address] [address] Phone Care Team Providers Name Role Phone DINA RUANO MD Unavailable Unavailable Allergies, Adverse Reactions, Alerts Substance Reaction Status amoxicillin Other Active WARNIN allergy(ies) could not be collected because the type is not supported. Please contact [facility] for further details. Medications Medication Instructions Dosage Effective Dates (start - stop) Status Comments Drug Treatment Unknown Problems Condition Effective Dates (start - stop) Clinical Status Unknown Procedures Procedure Date Procedure Unknown Results Test Name Date and Time Measure Units Reference Range Abnormal Flag Status Comments Unknown Encounters Encounter Practice Location Reason(s) Diagnoses Date Provider Providers Description For Visit Copied on Encounter 2018 [facility] Surgery xTV [facility], DINA. [place] [address] [place], [place], [place] [address], [address], [facility] tel:[phone] [facility] 797148 [address]. tel:[phone] 2018 [facility] Primary [employer], [facility] -[address], [place], [address], [facility], [address]. tel:[phone] tel:[phone] 2018 [facility] Primary [employer], [facility] -2006 [facility] [address] [place], [place], [place], [address], [place], [address]. tel:[phone] tel:[phone] 0001 - [facility], [address] [place], [address], tel:[phone] Family History Family Member Diagnosis Age At Onset Father Alzheimer's Disease (Cause Of ) Father Immunizations Vaccine Date Status Comments Adacel administered Source: New Immunization Record Payers Payer name Insurance type Covered constitution party ID Authorization(s) Unknown Social History Type Description Quantity Date Captured Comments Unknown Vital Signs Date / Height Weight BMI Pulse Blood Temperature Respiratory Body Head BMI Time: Rate Pressure Rate Surface Circumference percentile Area Unknown Chief Complaint And Reason For Visit No information Reason For Referral Reason For Referral Unknown Plan Of Care Date Type Action Status Appointment KAYLEY BERNABE Appointment KAYLEY BERNABE CANCELLED [...]
--- OUTSIDE RECORDS SUMMARY | 2019-04-19 14:16 | XMS REPORT | Continuity of Care Document ---
:1955 Author Organization 0001 - [employer] Address [address] [place] [address] Phone Care Team Providers Name Role Phone CLOUD SHERYL WORKMAN Unavailable Unavailable Allergies, Adverse Reactions, Alerts Substance [...] aft trtmt for cond - oth than malting neoplm PVC's (premature ventricular contractions) Elevated blood [...] For Visit Copied on Encounter 2019 - [facility] Surgery Dec-3 CLOUD SHERYL. S Inc, [address], [place], [address]. [address], [place] tel:[phone] tel:+ [phone] 2019 - [facility] Primary Dec-3 [facility], [facility] 0 VINICIO. [facility] [address] 9 PC 119 [facility] [address]. [place], tel:[phone], [place] 304761 tel:+ [phone] 2019 - [facility] Surgery Abdominal aortic Feb- JIN S Inc, aneurysm, KERMIT. 30 57 without 9 [facility], (primary) S455, [place] hypertensionEncn [place], [place], tr [place], [address], [place] [address]. tel:+60 cond oth than tel:[phone] sherri neoplm [phone] - [facility] Primary Dec-1 SKIFF S Inc, Care Combs 2-201 VINICIO. [facility] [address] [place] [address] 9 PC 119 [place], [place], Garc[place] [address]. [place], tel:[phone], [place] 743828 tel:[phone] 0001 - [facility] Preeti PVC's (premature Dec- SKOVIRA [employer], Cardiology ventricular 0-201 VINCENT. -57 contractions) 9 4417 Preeti [facility], García [place], [place], [place], [address]. [address], [place] tel: tel: [phone] 0001 - [facility] Surgery Elevated blood Dec-0 АНАН SAUCEDO. [employer], pressure reading 4-201 30 Mateo 33-57 in office with 9 Mateo Morris diagnosis of [address], [address], hypertensionAbdo García [facility] aortic [place], [place], [place], [address]. [address], [place] without tel: tel: ruptureMalignant [phone] neoplasm of esophagus, unspecifiedEleva rony blood-pressure reading, w/o diagnosis of htnPersonal history of nicotine dependence 0001 - [facility] Primary RingwormEssentia Nov-2 [employer], Care [facility]. [facility] [place] hypertensionPers 9 PC 119 Jerrica Alexanderon onal history of [facility], nicotine [place], [place], García dependenceCntct [address]. [facility], [place], w and expsr to tel:[phone], [place] environ tobacco 645900 tel:60 smoke (acute) [phone] (chronic) 0001 - [facility] Surgery Elevated blood Jan- АННА SAUCEDO. [employer], pressure reading 0-201 30 Mateo 57 with diagnosis 9 Mateo Morris of [address], [address], hypertensionAbdo García Mariano quoc aortic [place], [place], [place], [address]. [address], [place] without tel:[phone] tel:60 ruptureMalignant [phone] neoplasm of esophagus, unspecified 0001 - S Primary Nov-0 [employer] Inc, Care Combs VINICIO. [facility] [place] 9 PC 119 ting Mateo [facility], [place], [place], [place] [address]. [place], tel:[phone], [place] 960761 tel:+ [phone] 0001 - [facility] Surgery Abdominal aortic Dec-2 CLOUD SHERYL. S Inc, aneurysm, 30 [place] - without [address], [place] ruptureMalignant [address], Street, neoplasm of García García esophagus, [facility], [place], [place], unspecified [address]. [address], [place] tel:[phone] tel:[phone] 0001 - S Primary Abdominal aortic Dec- [facility], [facility] aneurysm (AAA) 8 VINICIO. [facility] 57 [place] without 9 PC [address], [facility], neoplasm of [place], [place], García lower third [place] [address]. [place], esophagus tel:[phone], [place] 672818 tel: [phone] 0001 - S Primary Microcytic Sep-0 [facility], [facility] anemiaBarrett's VINICIO. [facility] [place] esophagus with 9 PC 119 ig [place] esophagitisEsoph [facility], agitis, [place], [place], García unspecifiedTubul [address]. [place], ar adenoma of tel:[phone], [place] colonOccult GI 508140 tel: bleeding [phone] 0001 - S Primary Preoperative Sep-0 [facility], [facility] general physical 3- VINICIO. [facility] [address] [place] [address] examinationPrima 9 PC 119 [facility] ry [facility], osteoarthritis [place], [place], García of right [address]. [place], shoulderMyasthen tel:[phone], [place] 562423 tel:+60 gravisEssential [phone] hypertensionChro jacqui obstructive pulmonary disease, unspecified COPD typeAnemia in other chronic diseases classified elsewhere 0001 - S Primary Oct- LORD LOCKE. S Inc, Care Combs [facility] [address], [facility], [place], [place], [place] [address]. [place], tel:[phone], [place] 853158 tel:[phone] 0001 - S Primary Preoperative July- [facility] Inc, [facility] examinationProst 8- VINICIO. [address] hetic knee 9 PC 119 Jerrica Galindo implant failure, [facility], subsequent [place], [place], Garc[place] encounter [address]. [place], ^Presence of tel:[phone], [place] unspecified 570296 tel:+[phone] artificial knee [phone] joint 0001 - S Primary Preoperative July- SKIFF [employer], [facility] examinationDispl 3- VINICIO. [address] acement of 9 PC 119 Jerrica Galindo internal knee [facility], prosthesis [place], [place], Garc[place] ^[place] [address]. [place], unspecified tel:[phone], [place] artificial knee 194766 tel:+160 jointMyasthenia [phone] gravis without (acute) exacerbationEsse ntial (primary) hypertensionChro jacqui obstructive pulmonary disease, unspecified COPD typeAnemia, unspecified typeAbnormal CXRPersonal history of nicotine dependenceCntct w and expsr to environ tobacco smoke (acute) (chronic) 0001 - S Primary [employer] Inc, [facility] 0- VINICIO. [address] 9 PC 119 ting Galindo [facility], [place], [place], [place] [address]. [place], tel:[phone], [place] 234889 tel:[phone] 0001 - [facility] Primary Essential Dec-0 [employer] Inc, [facility] (primary) 3 VINICIO[address] hypertensionMixe 8 PC 119 ting Galindo d [facility], hyperlipidemiaMy [place], [place], [place] asthenia gravis [address]. [place], without (acute) tel:[phone], [place] exacerbationBarr 339435 tel:[phone] ett's esophagus [phone] without dysplasiaPersona l history of nicotine dependence 0001 - S Primary Mixed Jan- E[employer], [facility] hyperlipidemiaEs 0- VINICIO. [address] sential 8 PC 119 ting Mateo (primary) [facility], hypertension [place], [place], [place] [address]. [place], tel:[phone], [place] 063469 tel:+ [phone] 0001 - S Primary Essential Sep- [facility] [employer] Inc, Care Combs (primary) VINICIO. [facility] [place] hypertensionMyas 8 PC 119 [facility], without (acute) [facility] exacerbationBarr [address]. [place], ett's esophagus tel:[phone], [place] without 732223 tel:+60 dysplasiaImmuniz [phone] ation, single diseasePersonal history of nicotine dependenceCntct w and expsr to environ tobacco smoke (acute) (chronic) 0001 - S Primary Essential [facility] Inc, Care Combs (primary) VINICIO. [facility] [place] hypertensionMyas 8 PC 119 [facility], without (acute) [place], [place] exacerbationHemo [address]. [place], rrhoids, tel:[phone], [place] internalCntct w 989458 tel:+ and expsr to [phone] environ tobacco smoke (acute) (chronic) 0001 - [facility] Surgery Third degree Mar- [employer], hemorrhoidsEncou 0-201 DINA. 30 33-57 nter for other 8 Mateo Galindo specified [facility], surgical [address], [place], [place], [place], [address], [place] [address]. tel: tel:[phone] - [facility] Surgery Third degree Dec-2 [employer], hemorrhoidsEncou 6-201 DINA. 30 33-57 nter for other 7 Mateo Galindo [facility], surgical [address], [place], [place], [place], [address], [place] [address]. tel: tel:[phone] - [facility] Surgery Third degree Dec-0 [employer], hemorrhoidsEncou 6-201 DINA. 30 33-57 nter for other 7 Mateo Galindo preprocedural [facility], examination [address], [place], [place], [place], [address], [place] [address]. tel:+ tel:[phone] - S Surgery Third degree Dec- [employer], hemorrhoidsMyast OTISCO. 30 henia gravis 7 Mateo Galindo without (acute) Street, Street, exacerbation [address], [place], [place], [place], [address], [place] [address]. tel:+60 tel:[phone] - S Primary Olecranon Oct- [employer], Care Combs bursitis of VINICIO. [facility] [place] right elbow 7 PC 119 [place], [place] [address]. [place], tel:[phone], [place] 425398 tel:[phone] 0001 - Sep- [employer], [address] [place] [address], [address], [place] tel:[phone] 0001 - S Primary Essential Sep-0 [employer], [facility] (primary) VINICIO. [facility] [place] hypertensionMixe 7 PC 119 [facility], [place], [place], [place] asthenia gravis [address]. [place], without (acute) tel:[phone], [place] exacerbationReac 336257 tel:+60 tive airway [phone] disease, mild persistent, uncomplicated 0001 - S Primary Essential Mar- [employer], [facility] (primary) VINICIO. [facility] [place] hypertensionMixe 7 PC 119 [facility], [place], [place], [place] asthenia gravis [address]. [place], without (acute) tel:[phone], [place] exacerbation 339356 tel:[phone] 0001 - S Surgery Hemorrhoids, Oct- [employer], internalThird DINA. 30 -57 degree 6 [address], Street, [address], [place], [place], [address], [place] [address]. tel: tel:+ [phone] - [facility] Primary Essential Mar-0 [facility] [employer], Care Combs (primary) VINICIO. [address] hypertension 6 PC 119 [facility], [place], [place], Garc[place] [address]. [place], tel:[phone], [place] 898516 tel: [phone] 0001 - S Primary Essential Manuel-0 [facility] [employer], Care Combs (primary) VINICIO. [facility] [address] hypertension 6 PC 119 [facility], [place], [place], [place] [address]. [place], tel:[phone], [place] 750006 tel: [phone] 0001 - [facility] Primary Essential Oct-0 [facility] [employer], Care Combs (primary) VINICIO. [address] hypertensionMixe 5 PC 119 [facility], hyperlipidemiaPe [place], [place], [facility] [address]. [place], assessment, tel:[phone], [place] general 206758 tel: screening, adult [phone] 0001 - [facility] Primary Hypertension, [facility], [facility] BenignPreoperati VINICIO. [address] ve 5 PC 119 [facility] examOsteoarthrit [facility], is of [place], [place], [place] kneeMyasthenia [address]. [place], gravisMixed tel:[phone], [place] HyperlipidemiaBA 539930 tel: RRETT'S [phone] ESOPHAGUS 0001 - S Primary Hypertension, July- [employer], [facility] BenignMyasthenia [address] gravis 5 PC 119 [facility], [place], [place], Garc[place] [address]. [place], tel:[phone], [place] 828692 tel: [phone] 0001 - [facility] Primary Myasthenia Apr-0 [facility], [facility] gravisMedication 6 VINICIO. [facility] [address] side effect 5 PC 119 [place], [place], [place] [address]. [place], tel:[phone], [place] 225412 tel:[phone] 0001 - [facility] Primary Neuritis of [facility], [facility] ulnaMyasthenia VINICIO. [address] gravis 5 PC 119 [place], [place], [place] [address]. [place], tel:[phone], [place] 573857 tel:[phone] 0001 - [facility] Primary Myasthenia Dec-0 [facility] Inc, [facility] gravisHypertensi VINICIO. [address] on, Benign 4 PC 119 [place], [place], [place] [address]. [place], tel:[phone], [place] 416818 tel:[phone] 0001 - [facility] Walk-In HeadacheDouble Nov- CONSOLAZIO S Inc, [place] vision ALEXA. Preeti 4 [address] [place], [place], [place], [address]. [address], [place] tel:[phone] tel:[phone] 0001 - [facility] Primary Pneumonia Oct- [facility] Inc, [facility] VINICIO. [facility] [address] 4 PC 119 [place], [place], [place] [address]. [place], tel:[phone], [place] 201008 tel:[phone] 0001 - [facility] Walk-In SinusitisSinusit Sep-2 ZARRINI S Inc, Center is, Acute AMY. [place] 4 [address] [facility], [facility], [address]. [place], tel:[phone], [place] 279516 tel:[phone] 0001 - S Seborrheic [facility] Referring [facility] Inc, Dermatology keratosisEpiderm 3 RADHA. 200 Provider: 33-57 al cyst 4 Front [facility], [facility], [address], M, 200 [facility], [place], [place] [facility], [address]. [address] [address], [place] tel:[phone] [address], tel:[phone] Preeti, [id number] [place], [address]. tel:[phone] 0001 - [facility] Primary Hypertension, Nov-0 [facility] Inc, [facility] BenignMixed 8-201 VINICIO. [facility] 33[address]57 [place] HyperlipidemiaBA 3 PC 119 [facility], [place], [place], García ng for malignant [address]. [place], neoplasm, tel:[phone], [place] prostateColon 744886 tel:[phone] polyps [phone] 0001 - [facility] Primary Mixed Nov-0 N. T[facility], [facility] HyperlipidemiaHy 4-201 LAB. . 33-57 [place] pertension, 3 [facility], 'S [place], [place], ng for malignant [address], [place] neoplasm, tel:[phone] prostate [phone] 0001 - [facility] Primary Neoplasm Of 3 [facility], [facility] Uncertain 0-201 VINICIO. [facility] 33-57 [place] Behavior Of Skin 3 PC 119 [facility], [place], [place], García n, BenignMixed [address]. [place], HyperlipidemiaNe tel:[phone], [place] op, [place], 452105 tel:[phone] skinHypertension [phone] , BenignMixed Hyperlipidemia 0001 - [facility] Primary Hypertension, Dec0 LORD CORNELIA. S Inc, [facility] UnspecifiedMixed 3-201 [facility] 119 33-57 [place] HyperlipidemiaTo 2 [facility], [place], [place], García n, [address]. [place], BenignHypertensi tel:[phone], [place] on, BenignMixed 127550 tel:+[phone] HyperlipidemiaTo [phone] bacco Abuse 0001 - S Primary Mixed July- LORD CORNELIA. S [employer] media, Care Combs HyperlipidemiaHy 1-201 [facility] 119 33-57 [place] pertension, [address], [facility] [address], NOSScreening for [place], [place], [place] malignant [address]. [place], neoplasm, tel:[phone], [place] prostateMixed 374346 tel:+60 HyperlipidemiaHy [phone] pertension, essential NOSScreening for malignant neoplasm, prostate 0001 - S Primary Mixed July- NEstela MENDEZ [employer], Care Combs Hyperlipidemia 4-201 LAB. . 33-57 Valley 2 [facility], [place], [address], [place] tel:[phone] 0001 - S Primary Mixed Apr- LORD LOCKE. [employer], Care Combs HyperlipidemiaHy 6-201 [facility] 119 33-57 [place] [facility], [address], [facility], NOSMixed [place], [place], [place] HyperlipidemiaHy [address]. [place], pertension, tel:[phone], [place] essential 636277 tel:+60 NOSMixed [phone] HyperlipidemiaHy pertension, essential NOS 0001 - [facility] Primary Hypertension, LORD LOCKE. [employer], Care Combs essential 8-201 [facility] 119 33-57 [place] NOSMixed [address], [place] [facility], reening for [place], [place], [place] malignant [address]. [place], neoplasm, tel:[phone], [place] prostateBARRETT' 622916 tel:[phone] ESOPHAGUSHyperte nsion, essential NOSMixed HyperlipidemiaSc reening for malignant neoplasm, prostateBARRETT' S ESOPHAGUS 0001 - [facility] Primary Hypertension, July-0 LORD LOCKE. [employer] Inc, Care Combs essential 2-201 [facility] 119 33-57 [place] NOSMixed [address], [place] Hyperlipidemia [facility], [place], [place], García [address]. [place], tel:[phone], [place] 628152 tel:[phone] 0001 - S Primary Hypertension, LORD LOCKE. [facility], Care Combs essential NOS 4-201 SP 119 33-57 [place] 1 [facility], [facility], [place], [place], García [address]. [place], tel:[phone], [place] 501373 tel:[phone] 0001 - [facility] Primary Routine Medical Manuel- LORD LOCKE. [facility], [facility] ExamMixed 8-201 SP 119 33-57 [place] HyperlipidemiaHy 1 [facility], essential [place], [place], García NOSScreening for [address]. [place], malignant tel:[phone], [place] neoplasm, 792111 tel:+60 prostateBARRETT' [id number] S ESOPHAGUSRoutine Medical Exam 0001 - [facility] Primary May-2 [facility], [facility] 5-200 VINICIO. [facility] [address] 9 PC 119 [facility], [place], [place], García [address]. [place], tel:[phone], [place] 581246 tel:[phone] 0001 - [facility] Primary Hypertension, Nov-3 [facility], [facility] benign 0-200 VINICIO. [facility] [address] essentialBARRETT 7 PC 119 [facility], ESOPHAGUSDisorde [place], [place], García r, tobacco [address]. [place], useDermatitis tel:[phone], [place] NOS 604458 tel:[phone] Family History Family Member Diagnosis Age At Onset Father Alzheimer's Disease (Cause Of ) Father Immunizations Vaccine Date Status Comments Adacel administered Source: New Immunization Record Payers Payer name Insurance type Covered democrat ID Authorization(s) Aetjasiel Gonzalo [id number] Social History Type Description Quantity Date Captured [...] Referred To: ordered WILMA CAM MD [address] [facility] [address] [place] [address], [address] [phone] Ordered: Referrals: Vascular Surgery. WILMA CAM MD. Evaluate and treat Appointment date/timeframe: 2 Weeks Referral Referred To: ordered ORLANDO DELEON NP 40 [facility] Floor 3 [place], [address] [phone] Ordered: Referrals: Gastroenterology. ORLANDO DELEON NP Appointment date/timeframe: 12/14/2018 Referral Ordered: ordered X-RAY EXAM CHEST 2 VIEWS Referral Referred To: ordered FAHAD ARGUETA PARI MUTUEL TICKET CASHIER [address] [place], [address] [phone] Ordered: Referrals: Gastroenterology. FAHAD ARGUETA PARI MUTUEL TICKET CASHIER. Location: [facility]. Follow-up and treat Appointment date/timeframe: 04/01/2018 Referral Referred To: ordered BRIAN NULL [address] [place], [address] [phone] Ordered: BRIAN NULL. Neurology. Follow-up and Treat. Appointment date/timeframe: 03/02/2014 Referral Referred To: ordered RADHA SOUSA [address] [place], [address] [phone] Ordered: RADHA SOUSA. Dermatology. Consult and treat. Appointment date/timeframe: 03/19/2013 Referral Ordered: ordered Chest X-ray, 2 views, Frontal & Lateral Referral Referred To: ordered JENNIFER GARCIA LAYNE [address], [address] [phone] Ordered: JENNIFER GARCIA. Gastroenterology. Consult and treat. [...] medication Related to Malignant neoplasm of discussed. 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 I would recommend holding the surgery Related [...] with the change. Discuyss omari immunizatio with Dr. Related to Immunizationfrancy. disease Follw up with GI. Related to [...] without (acute) exacerbation Will continue to follow [facility] neurology. Related to Myasthenia gravis without [...] continue lisinopril. Related to Essential (primary) hypertension I am told that anesthesiology is aware Related to Myasthenia gravis of the myasthenia his medications. controled. Related to OGLESBY'S ESOPHAGUS continue current medications Related to Hypertension, Benign [...] blood pressure is around 120/80. Go to [facility] for Further Evaluation. Related to Headache Thank [...]
--- OUTSIDE RECORDS SUMMARY | 2019-04-19 14:16 | XMS REPORT | Continuity of Care Document ---
:1955 Author Organization 0001 - [employer] Address [address] [place] [address] Phone Care Team Providers Name Role Phone [...] - Active capsule oral route every day metoprolol take 1 tablet by 25 MG - No Longer succinate ER 25 mg oral route every Active tablet,extended day release 24 hr [place] 5 mg-325 mg take 1 tablet by 1.00 - No Longer tablet oral route every tablet Active 6 hours as needed for pain Ventolin HFA 90 inhale 2 puff by [...] Description For Visit Copied on Encounter [address] [facility] Primary [facility], [facility] 0-201 [facility] [address] 9 119 [place], [place], [place] [address]. [place], tel:[phone], [place] 668159 tel:[phone] 0001 - [facility] Surgery Abdominal aortic [employer], aneurysm, 8[address]. 57 [facility] 9 [facility], (primary) [address] hypertensionEncn [place], [place], tr [place], [address], [place] [address]. tel:[phone] cond [facility] tel:[phone] malig neoplm [phone] - [facility] Primary Feb- [facility] Inc, Care [place] VINICIO. [facility] [place] 9 PC 119 [facility] [address]. [place], [place], tel:[phone], [place] 140334 tel:[phone] 0001 - [facility] Surgery Feb- RAMIRO S Inc, WILMA. 9 Count Includes [facility], [place], [address], [place], [place], [place], [address], [place] [address]. tel:+60 tel:[phone] - [facility] Preeti PVC's (premature Feb- SKOVIRA [facility], Cardiology ventricular VINCENT. contractions) 9 4417 Preeti [facility], [place], [address]. [address], [place] tel:+ tel:[phone] 0001 - Med Surg Dec- [facility], [address] [place] [address], [address], [place] tel:[phone] 0001 - Inpatient - Feb- АННА SAUCEDO. [facility], [facility] [address] [place] [address] [address], [place], [place], [place], [place], [address]. [address], [place] tel:+ tel: [phone] 0001 - [facility] Surgery Elevated blood Feb- АННА SAUCEDO. S [facility], pressure reading [place] in office with [address] [place] [address] diagnosis of [address], [place], hypertensionAbdo [facility] quoc aortic [place], [place], [place], [address]. [address], [place] without tel:[phone] tel:[phone] ruptureMalignant [phone] neoplasm of esophagus, unspecifiedEleva rony blood-pressure reading, w/o diagnosis of htnPersonal history of nicotine dependence 0001 - [facility] Primary RingwormEssentia Nov- [facility] Inc, [place] l VINICIO. [facility] [place] hypertensionPers 9 PC 119 Jerrica Galindo onal [facility], nicotine [place], Garc[place] dependenceCntct [address]. [facility], [place], w and expsr to tel:[phone], [place] environ tobacco 692494 tel:[phone] smoke (acute) [phone] (chronic) 0001 - S Surgery Elevated blood Nov-2 CLOUD SHERYL. S Inc, pressure reading 0-201 30 Mateo 57 with diagnosis 9 StreetM[address]o [address], Street, hypertensionAbdo García Mariano quoc aortic [place], [place], [place], [address]. [address], [place] without tel:[phone] tel:[phone] ruptureMalignant [phone] neoplasm of esophagus, unspecified 0001 - [facility] Primary Nov-0 SKIFF S Inc, [place] 7 VINICIO. [facility] [address] 9 PC 119 Jerrica Galindo [facility], [place], [place], Garc[place] [address]. [place], [place], tel:[phone], [place] 270575 tel:[phone] 0001 - [facility] Surgery Abdominal aortic Oct-2 CLOUD SHERYL. S Inc, aneurysm, 3201 30 [place] without 9 Mateo Morris ruptureMalignant [address], Street, neoplasm of García Mariano esophagus, [place], [place], unspecified [address]. [address], [place] tel:[phone] tel:[phone] 0001 - S Primary Abdominal aortic Oct-1 [facility], [facility] aneurysm (AAA) 8 VINICIO. [facility] [address] [place] [address] without 9 PC 119 Jerrica Galindo ruptureMalignant [facility], neoplasm of [place], Garc[place] lower third [place] [address]. [place], esophagus tel:[phone], [place] 352453 tel:[phone] 0001 - S Primary Microcytic Sep-0 [facility], [place] anemiaBarrett's VINICIO. [facility] [place] esophagus with 9 PC 119 Jerrica Galindo esophagitisEsoph [facility], agitis, [place], [place], Garc[place] unspecifiedTubul [address]. [place], ar adenoma of tel:[phone], [place] colonOccult GI 178370 tel:[phone] bleeding [phone] 0001 - S Primary Preoperative Sep-0 [facility] [employer] Inc, [facility] general physical 3- VINICIO. [facility] 3357 [place] examinationPrima 9 PC 119 [address] Mateo ry [facility], osteoarthritis [place], [place], Garc[place] of right [address]. [place], shoulderMyasthen tel:[phone], [place] 820869 tel:[phone] gravisEssential [phone] hypertensionChro jacqui obstructive pulmonary disease, unspecified COPD typeAnemia in other chronic diseases classified elsewhere 0001 - S Primary Oct- LORD CORNELIA. S Inc, [facility] 119 [address] , [facility], [place], [place], Garc[place] [address]. [place], tel:[phone], [place] 007838 tel:[phone] 0001 - S Primary Preoperative [facility] Inc, [facility] examinationProst 8 VIN[facility]IO. [facility] [place] hetic knee 9 PC 119 [facility] implant failure, [facility], subsequent [place], [place], Garc[place] encounter [address]. [place], ^Presence of tel:[phone], [place] unspecified 371118 tel:[phone] artificial knee [phone] joint 0001 - S Primary Preoperative July- [facility] [employer] Inc, [facility] examinationDispl 3 VINICIO. [facility] [place] acement of 9 PC 119 Wh[address] Mateo internal knee [facility], prosthesis [place], [place], Garc[place] ^[place] [address]. [place], unspecified tel:[phone], [place] artificial knee 462171 tel:[phone] jointMyasthenia [phone] gravis without (acute) exacerbationEsse ntial (primary) hypertensionChro jacqui obstructive pulmonary disease, unspecified COPD typeAnemia, unspecified typeAbnormal CXRPersonal history of nicotine dependenceCntct w and expsr to environ tobacco smoke (acute) (chronic) 0001 - S Primary July- [facility] [employer] Inc, [facility] 0-[address] 9 PC 119 ting Mateo [facility], [place], [place], Garc[place] [address]. [place], tel:[phone], [place] 788481 tel:[phone] 0001 - S Primary Essential Dec-0 [employer] Inc, [place] (primary) 3-201 [address]INICIO[address] hypertensionMixe 8 PC 119 ting Galindo [facility], hyperlipidemiaMy [place], [place], García asthenia gravis [address]. [place], without (acute) tel:[phone], [place] exacerbationBarr 366413 tel:[phone] ett's esophagus [phone] without dysplasiaPersona l history of nicotine dependence 0001 - S Primary Mixed Nov-2 [employer] Inc, [facility] hyperlipidemiaEs 0-201 [address]IC[address] sential 8 PC 119 [facility] (primary) [facility], hypertension [place], [place], García [address]. [place], tel:[phone], [place] 878571 tel:[phone] 0001 - S Primary Essential Ja-1 [employer] Inc, [place] (primary) 6- VINICIO. [address] hypertensionMyas 8 PC 119 [facility] ira [facility], Inc, without (acute) [place], Garc[place] exacerbationBarr [address]. [place], ett's esophagus tel:[phone], [place] without 713753 tel:[phone] dysplasiaImmuniz [id number] ation, single diseasePersonal history of nicotine dependenceCntct w and expsr to environ tobacco smoke (acute) (chronic) 0001 - S Primary Essential Manuel- [employer] Inc, [place] (primary) 2- VINICIO. [address] hypertensionMyas [address] [facility], Inc, without (acute) [place], Garc[place] exacerbationHemo [address]. [place], rrhoids, tel:[phone], [place] internalCntct w 024852 tel:[phone] and expsr to [phone] environ tobacco smoke (acute) (chronic) 0001 - S Surgery Third degree Manuel-1 ALDEN [facility], hemorrhoidsEncou 0-201 DINA. 30 33-57 nter for other 8 Mateo Galindo specified [facility], surgical [address], [place], [place], [place], [address], [place] [address]. tel:+60 tel:[phone] - [facility] Surgery Third degree Dec-2 [facility] Inc, hemorrhoidsEncou 6-201 DINA. 30 33-57 nter for other 7 Mateo Galindo specified [place], surgical [address], [place], [place], [place], [address], [place] [address]. tel:+60 tel:[phone] - S Surgery Third degree Dec-0 [facility], hemorrhoidsEncou 6-201 DINA. 30 33-57 nter for other 7 Mateo Galindo preprocedural [facility], examination [address], [place], [place], [place], [address], [place] [address]. tel:+60 tel:[phone] - S Surgery Third degree Oct-2 [facility], hemorrhoidsMyast 4-201 [place]. 30 33-57 henia gravis 7 Mateo Galindo without (acute) [facility], exacerbation [address], [place], [place], [address], [place] [address]. tel:+60 tel:[phone] [phone] - S Primary Olecranon Oct- SKIFF S Inc, [facility] bursitis of [facility]. [facility] [place] right elbow 7 PC 119 [facility], [place], [place], [place] [address]. [place], tel:[phone], [place] 757592 tel:[phone] 0001 - Sep- [facility], 3357 7 [place], [address], [place] tel:[phone] 0001 - S Primary Essential Sep- SKIFF S Inc, [facility] (primary) VINICIO. [facility] 33[address]57 [place] hypertensionMixe 7 PC 119 [facility], [place]Gordon, [place], [place] asthenia gravis [address]. [place], without (acute) tel:[phone], [place] exacerbationReac 421094 tel:[phone] tive airway [phone] disease, mild persistent, uncomplicated 0001 - S Primary Essential Manuel-0 SKIFF [facility] Inc, [facility] [place] (primary) VINICIO. [facility] 33-57 [place] hypertensionMixe 7 PC 119 [facility], [place], [place], [place] asthenia gravis [address]. [place], without (acute) tel:[phone], [place] exacerbation 380861 tel:[phone] 0001 - S Surgery Hemorrhoids, [facility] Inc, internalThird DINA. 33-57 degree 6 [facility] hemorrhoids [place], Street, [address], [place], [place], [address], [place] [address]. tel:[phone] tel:[phone] - S Primary Essential Mar-0 SKIFF [facility] Inc, [facility] (primary) V[facility]IO. [facility] 33[address]57 [place] hypertension 6 PC 119 [place], [place], Garc[place] [address]. [place], tel:[phone], [place] 971576 tel:[phone] 0001 - S Primary Essential Manuel-0 SKIFF [facility], [facility] (primary) V[facility]IO. [facility] 33-57 [place] hypertension 6 PC 119 [facility], [place], [place], García [address]. [place], tel:[phone], [place] 166020 tel:[phone] 0001 - S Primary Essential Oct-0 SKIFF [facility] Inc, [facility] [place] (primary) V[facility]IO. [facility] 33[address]57 [place] hypertensionMixe 5 PC 119 [facility], [place], [place] riodic health [address]. [place], assessment, tel:[phone], [place] general 384231 tel:+60 screening, adult [phone] 0001 - S Primary Hypertension, [employer], [facility] [place] BenignPreoperati [facility]. [facility] Valley ve 5 PC 119 [facility] examOsteoarthrTrinity Health System [facility], is of [place], [place] kneeMyasthenia [address]. [place], gravisMixed tel:[phone], HyperlipidemiaBA 593522 tel:+60 RRETT'S [phone] ESOPHAGUS 0001 - S Primary Hypertension, [employer], [place] BenignMyasthenia [facility]IO. [facility] [address] [place] [address] gravis 5 PC 119 [facility], [place], [place], García [address]. [place], tel:[phone], [place] 666276 tel:[phone] 0001 - [facility] Primary Myasthenia Apr-0 [facility] Inc, [facility] gravisMedication [facility]IO. [facility] [address] [place] [address] side effect 5 PC 119 [facility], [place], [place], García [address]. [place], tel:[phone], [place] 431949 tel:[phone] 0001 - S Primary Neuritis of [employer], [facility] ulnaMyasthenia [facility]. [facility] [address] [place] [address] gravis 5 PC 119 [place], [place], Garc[place] [address]. [place], tel:[phone], [place] 304789 tel:[phone] 0001 - [facility] Primary Myasthenia Dec-0 [facility] Inc, [facility] gravisHypertensi [facility] - Valley on, Benign 4 PC 119 [facility], [place], [place], García [address]. [place], tel:[phone], [place] 602306 tel:[phone] 0001 - S Walk-In HeadacheDouble [employer]SOL[employer]IO S Inc, Center vision ALEXA. Preeti 4 [address] [facility], [place], [place], [place], [address]. [address], [place] tel:[phone] tel:[phone] 0001 - S Primary Pneumonia Oct- [facility] Inc, [place] [facility]IO[facility] [address] 4 PC 119 [facility], [place], [place] [address]. [place], tel:[phone], [place] 421507 tel:[phone] 0001 - S Walk-In SinusitisSinusit Sep-2 ZARRINI S Inc, Center is, Acute AMY. Dixon [address] [facility], [place], [facility], [address]. [place], [place], tel:[phone], [place] 390594 tel:[phone] 0001 - S Seborrheic ROMANIAK Referring S Inc, Dermatology keratosisEpiderm RADHA. [facility] Provider: al cyst 4 [facility], [facility], [address], [address], [address] [place], [place], [place], [address]. [address] [address], tel:[phone] [address], tel:[phone] [place], [address] [place], [address]. tel:[phone] 0001 - [facility] Primary Hypertension, Nov-0 [facility] Inc, [facility] BenignMixed [facility]IO. [facility] 57 [place] HyperlipidemiaBA [address] [facility], [place], [facility] for malignant [address]. [place], neoplasm, tel:[phone], [place] prostateColon 017840 tel:[phone] polyps [phone] 0001 - S Primary Mixed Nov-0 N. TIOGA S Inc, [facility] HyperlipidemiaHy LAB. . [place] pertension, 3 [facility] [place] [facility] [place], ng for malignant [address], [place] neoplasm, tel:[phone] prostate [phone] 0001 - [facility] Primary Neoplasm Of Apr-3 SKIFF S Inc, [facility] [place] Uncertain 0-201 VINICIO. [facility] 33[address]57 [place] Behavior Of Skin 3 PC 119 [address] [place] Of , [facility], Ank[place], [place], García n, BenignMixed [address]. [place], HyperlipidemiaNe tel:[phone], [place] op, UB, 238000 tel:[phone] skinHypertension [phone] , BenignMixed Hyperlipidemia 0001 - [facility] Primary Hypertension, Feb- LORD CORNELIA. S Inc, [facility] UnspecifiedMixed 3-201 SP 119 33-57 [place] HyperlipidemiaTo [address] [facility], [facility], [place]Hy[place], [place], [place] n, [address]. [place], BenignHypertensi tel:[phone], [place] on, BenignMixed 904156 tel:+1-60 HyperlipidemiaTo [id number] bacco Abuse 0001 - [facility] Primary Mixed July- LORD CORNELIA. S Inc, [facility] HyperlipidemiaHy 1-201 SP 119 33-57 [place] [facility], 2 [facility], [facility], NOSScreening for [place], [place] malignant [address]. [place], neoplasm, tel:[phone], [place] prostateMixed 835403 tel:+[phone] HyperlipidemiaHy [id number] pertension, essential NOSScreening for malignant neoplasm, prostate 0001 - [facility] Primary Mixed July-1 N. TIOGA S Inc, [facility] Hyperlipidemia 4-201 LAB. . 33-57 Valley 2 [facility], [place], [address], [place] tel:[phone] 0001 - S Primary Mixed Apr-0 LORD CORNELIA. S Inc, [facility] HyperlipidemiaHy 6-201 SPC 119 33-57 [place] pertension, [address] [facility] [address], [facility], NOSMixed [place], García HyperlipidemiaHy [address]. [place], pertension, tel:[phone], [place] essential 668076 tel:+[phone] NOSMixed [id number] HyperlipidemiaHy pertension, essential NOS 0001 - [facility] Primary Hypertension, LORD LOCKE. [facility], [facility] essential 8-201 [facility] 119 33-[address], [place] HyperlipidemiaSc [facility], reening for [place], Garc[place] malignant [address]. [place], neoplasm, tel:[phone], [place] prostateBARRETT' [address] tel:+[phone] S [phone] ESOPHAGUSHyperte nsion, essential NOSMixed HyperlipidemiaSc reening for malignant neoplasm, prostateBARRETT' S ESOPHAGUS 0001 - [facility] Primary Hypertension, 0 LORD LOCKE. [facility], [facility] essential 2-201 SP 119 33-[address] [facility], [place] Hyperlipidemia [facility], [place], [place], García [address]. [place], tel:[phone], [place] [address] tel:[phone] 0001 - [facility] Primary Hypertension, LORD LOCKE. [facility], [facility] essential NOS 4-201 [facility] 119 33[address], [facility], [place], [place], García [address]. [place], tel:[phone], [place] 722950 tel:[phone] 0001 - [facility] Primary Routine Medical LORD LOCKE. [facility], [facility] ExamMixed 8-201 SP 119 33-[address] [place] [address] [facility], [facility], [facility], essential [place], [place] NOSScreening [place] [address]. [place], malignant tel:[phone], [place] neoplasm, 609382 tel:+[phone] prostateBARRETT' [id number] S ESOPHAGUSRoutine Medical Exam 0001 - [facility] Primary Mar-2 [facility], [facility] 5-200 VINICIO. [facility] 33-57 Valley 9 PC 119 [address] [facility], [facility], [place], [place], García [address]. [place], tel:[phone], [place] 110390 tel:[phone] 0001 - [facility] Primary Hypertension, Nov-3 [facility], [facility] 0-200 VIN[facility]IO. [facility] 33-57 [place] essentialBARRETT 7 PC 119 [address] [facility], [facility], ESOPHAGUSDisorde [place], [place], García r, tobacco [address]. [place], useDermatitis tel:[phone], NOS 937744 tel:[phone] Family History Family Member Diagnosis Age At [...] To: ordered WILMA CAM MD 30 [facility] [address] [place], [phone] Ordered: Referrals: Vascular Surgery. WILMA CAM MD. Evaluate and treat Appointment date/timeframe: 2 Weeks Referral Referred To: ordered ORLANDO DELEON NP 40 [facility] Floor 3 [place], [phone] Ordered: Referrals: Gastroenterology. ORLANDO DELEON NP Appointment date/timeframe: 12/14/2018 Referral Ordered: ordered X-RAY EXAM CHEST 2 VIEWS Referral Referred To: ordered FAHAD ARGUETA PRESS MACHINE FEEDER [address] [place], [address] [phone] Ordered: Referrals: Gastroenterology. FAHAD MATTHEWS. Location: [facility]. Follow-up and treat Appointment date/timeframe: 04/01/2018 Referral Referred To: ordered BRIAN NULL [address] [place], [address] [phone] Ordered: BRIAN NULL Neurology. Follow-up and Treat. Appointment date/timeframe: 03/02/2014 Referral Referred To: ordered RADHA SOUSA [address] [place], [phone] Ordered: RADHA SOUSA. Dermatology. Consult and treat. Appointment date/timeframe: 03/19/2013 Referral Ordered: ordered Chest X-ray, 2 views, Frontal & Lateral Referral Referred To: ordered JENNIFER GARCIA LAYNE [address] [place], [address] [phone] Ordered: JENNIFER GARCIA. Gastroenterology. Consult and treat. 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 I would recommend holding the surgery Related [...] without (acute) exacerbation Will continue to follow [facility] neurology. Related to Myasthenia gravis without (acute) [...] blood pressure is around 120/80. Go to [facility] for Further Evaluation. Related to Headache Thank [...]
--- OUTSIDE RECORDS SUMMARY | 2019-04-19 14:17 | XMS REPORT | Continuity of Care Document ---
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 [place] Point of Care 100 mg/dL Normal 70-100 1 finding Glucose CBC W/Auto 12/25/2018 [facility] White Blood 9.7 10^3/uL Normal 3.5-10.8 Differential(!) Count Red Blood Count 4.76 10^6/uL Normal 4.18-5.48 Hemoglobin 12.4 g/dL Low 14.0-18.0 Hematocrit 39 % Low 42-52 Mean Corpuscular Volume 83 fL Normal 80-94 Mean Corpuscular Hemoglobin 26 pg Low 27-31 Mean Corpuscular HGB Conc 32 g/dL Normal 31-36 Red Cell Distribution Width 23 % High 10-15 Platelet Count 228 10^3/uL Normal 150-450 Mean Platelet Volume 9.3 fL Normal 7.4-10.4 Abs Neutrophils 8.4 10^3/uL High 1.5-7.7 Abs Lymphocytes 0.7 10^3/uL Low 1.0-4.8 Abs Monocytes 0.5 10^3/uL Normal 0-0.8 Abs Eosinophils 0.1 10^3/uL Normal 0-0.6 Abs Basophils 0.1 10^3/uL Normal 0-0.2 Abs Nucleated RBC 0.0 10^3/uL Granulocyte % 86.6 % Lymphocyte % 7.4 % Monocyte % 4.7 % Eosinophil % 0.7 % Basophil % 0.6 % Nucleated Red Blood Cells % 0.0 CMP(!) 12/25/2018 [facility] Sodium 141 mmol/L Normal 135-145 Potassium 4.1 mmol/L Normal 3.5-5.0 Chloride 107 mmol/L Normal 101-111 Co2 Carbon Dioxide 28 mmol/L Normal 22-32 Anion Gap 6 mmol/L Normal 2-11 Glucose 74 mg/dL Normal 70-100 Blood Urea Nitrogen 23 mg/dL Normal 6-24 Creatinine 1.05 mg/dL Normal 0.67-1.17 BUN/Creatinine Ratio 21.9 High 8-20 Calcium 9.3 mg/dL Normal 8.6-10.3 Total Protein 6.2 g/dL Low 6.4-8.9 Albumin 4.2 g/dL Normal 3.2-5.2 Globulin 2.0 g/dL Normal 2-4 Albumin/Globulin Ratio 2.1 Normal 1-3 Total Bilirubin 0.40 mg/dL Normal 0.2-1.0 Alkaline Phosphatase 66 U/L Normal 34-104 Alt 17 U/L Normal 7-52 Ast 20 U/L Normal 13-39 Egfr Non- 71.6 >60 Egfr 86.6 >60 2 Laboratory test finding 12/25/2018 [facility] [facility] Pathologist Review (SEE NOTE) 3 Laboratory test finding 12/10/2018 [facility] Surgical Pathology SEE RESULT BELOW 4 Order 1 Steel Handler: [id number] 2 Because ethnic data is not always [...] 5 Kidney failure <15 (or dialysis) 3 Leukocytosis with absolute neutropenia indicative of acute inflammatory/reactive process. Mild normocytic anemia noted. Additional studies as clinically warranted. Reviewed by Dr. Garces 4 SEE RESULT BELOW Name: KAYLEY BERNABE : [address]: Pawan Hyde DO Acct: [id number] Unit: [id number] AGE: 63 Location: OR Re12/10/18 SEX: M [place] [facility]: [id number] JENNIFER: 12/10/18-[address] [facility] [address]: Pawan Hyde DO REQ: [id number] RECD: 12/10/18 STATUS: PATI BRUNSON DR: Joés Kamara MD _ ORDERED: LEVEL 4/6 FINAL [...] CONTINUED ON NEXT PAGE DEPARTMENT OF PATHOLOGY, [address] [place] [address] Inocente Garces M.D. Director [facility] # [id number] GROSS DESCRIPTION 1. The specimen is received [...] 1705 END OF REPORT DEPARTMENT OF PATHOLOGY, [address] [place] [address] Inocente Garces M.D. Director [facility] # [id number] SEE RESULT BELOW Name: KAYLEY BERNABE : [address]: Pawan Hyde DO Acct: [id number] Unit: [id number] AGE: 63 Location: OR Re12/10/18 SEX: M Status: [place] [facility] [place]C: [id number] JENNIFER: 12/10/18-130 [facility] [address]: Pawan Hyde DO REQ: [id number] RECD: 12/10/18 STATUS: PATI BRUNSON DR: José [...] CONTINUED ON NEXT PAGE DEPARTMENT OF PATHOLOGY, [address] [place] [address] Inocente Garces M.D. Director [facility] # [id number] COMMENT: Mismatch repair protein, HER-2/jordyn, and PD-L1 [...] 1705 END OF REPORT DEPARTMENT OF PATHOLOGY, [address] [place] [address] Inocente Garces M.D. Director [facility] # [id number] SEE RESULT BELOW Name: KAYLEY BERNABE : [address]: Pawan Hyde DO Acct: [id number] Unit: [id number] AGE: 63 Location: [place] Re12/10/18 SEX: M [place] [facility] [place]: [id number] JENNIFER: 12/10/18-[address]: Pawan Hyde DO REQ: [id number] RECD: 12/10/18 STATUS: PATI BRUNSON DR: José [...] CONTINUED ON NEXT PAGE DEPARTMENT OF PATHOLOGY, [address] [place] [address] Inocente Garces M.D. Director [facility] # [id number] COMMENT: Mismatch repair protein, HER-2/jordyn, and PD-L1 [...] 1705 END OF REPORT DEPARTMENT OF PATHOLOGY, [address] [place] [address] Inocente Garces M.D. 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) Office Visit 12/01/2018 Gastroenterology Pawan Hyde D50.0 Iron deficiency 3:45p [facility] DO anemia secondary to blood loss (chronic) K21.9 Gastro-esophageal reflux disease without esophagitis G70.00 Myasthenia gravis without (acute) exacerbation Assessments Date Code Description Provider 12/25/2018 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 Pawan Hyde DO 12/25/2018 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 Hyde DO (chronic) 12/10/2018 D50.9 Iron deficiency anemia, unspecified Pawan Hyde DO 12/10/2018 K22.70 Oglesby's esophagus without dysplasia Pawan Hyde DO 12/01/2018 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 Hyde DO (chronic) 12/01/2018 K21.9 Gastro-esophageal reflux disease without Pawan Hyde DO esophagitis 12/01/2018 G70.00 Myasthenia gravis without (acute) exacerbation Pawan Hyde DO Plan of Treatment No Information Available Functional Status Description No Information Available Mental Status Description No Information Available Referrals Description No Information Available
--- OUTSIDE RECORDS SUMMARY | 2019-04-19 14:17 | XMS REPORT | Continuity of Care Document ---
:1955 External Reference #:[id number] Author Care Team Providers Name Role Phone José Kamara MD Care Team Information People Manager [phone] Problems Description No Information Available Social History [...] 2 Tabs bid Unknown 500mg Tablets Pyridostigmine [place] 3 Tabs qid Unknown 60mg Tablets Prednisone tid Unknown 5mg Tablets Albuterol Sulfate HFA José Kamara MD 108(90Base) mcg/Act Aerosol Iron 1 by mouth qd Unknown 325(65Fe) mg Tablets Aspirin 81 daily Unknown 81mg Tablets DR History Medications Peg 3350/Electrolytes use as directed 4000ml Pawan Hyde, DO 12/04/2018 - 240gm 12/25/2018 Solution Rec [...] Result H/L Range Note Laboratory test 01/06/2019 [facility] [place] Point of Care 100 mg/dL Normal 70-100 1 finding Glucose CBC W/Auto 12/25/2018 [facility] [place] White Blood 9.7 [...] Red Blood Cells % 0.0 CMP(!) 12/25/2018 [facility] [place] Sodium 141 mmol/L [...] 86.6 >60 2 Laboratory test finding 12/25/2018 [facility] Pathologist Review (SEE NOTE) 3 Laboratory test finding 12/10/2018 [facility] [place] Surgical Pathology SEE RESULT BELOW 4 Order 1 Senior Operations Manager: [id number] 2 Because ethnic data is not always [...] [address]: Pawan Hyde DO Acct: [id number] Unit: [id number] AGE: 63 Location: OR Re12/10/18 SEX: M Status: REG [facility] [place] SPEC: [id number] JENNIFER: 12/10/18-[address] [facility] [address]: Pawan Hyde REQ: [id number] RECD: 12/10/18 STATUS: PATI BRUNSON DR: José [...] CONTINUED ON NEXT PAGE DEPARTMENT OF PATHOLOGY, [address] [place] [address] Inocente Garces M.D. Director [facility] # [id number] GROSS DESCRIPTION 1. The specimen is received [...] and Reported on: Callie Cabezas MD 12/11/18 5429 END OF REPORT DEPARTMENT OF PATHOLOGY, [address] [place] [address] Inocente Garces M.D. Director [facility] # [id number] SEE RESULT BELOW Name: KAYLEY BERNABE : [address]: Pawan Hyde DO Acct: [id number] Unit: [id number] AGE: 63 Location: OR Re12/10/18 SEX: M Status: REG [facility] SPEC: [id number] JENNIFER: 12/10/18-[address] [facility] [address]: Pawan Hyde DO REQ: [id number] RECD: 12/10/18 STATUS: PATI BRUNSON DR: José [...] CONTINUED ON NEXT PAGE DEPARTMENT OF PATHOLOGY, [address] [place] [address] Inocente Garces M.D. Director [facility] # [id number] COMMENT: Mismatch repair protein, HER-2/jordyn, and PD-L1 [...] and Reported on: Callie Cabezas MD 12/11/18 1706 END OF REPORT DEPARTMENT OF PATHOLOGY, [address] [place] [address] Inocente Garces M.D. Director [facility] # [id number] SEE RESULT BELOW Name: JOE BERNABEMelisa Sparks : [address]: Pawan Hyde DO Acct: [id number] Unit: [id number] AGE: 63 Location: OR Re12/10/18 SEX: M Status: REG [facility] [place] SPEC: [id number] JENNIFER: 12/10/18-[address]: Pawan Hyde DO REQ: [id number] RECD: 12/10/18 STATUS: PATI BRUNSON DR: José [...] CONTINUED ON NEXT PAGE DEPARTMENT OF PATHOLOGY, [address] [place] [address] Inocente Garces M.D. Director [facility] # [id number] COMMENT: Mismatch repair protein, HER-2/jordyn, and PD-L1 [...] 1705 END OF REPORT DEPARTMENT OF PATHOLOGY, [address] [place] [address] Inocente Garces M.D. Director [facility] # [id number] Procedures Date Code Description Status 12/10/2018 27188 Colonscopy+Biopsy Completed 12/10/2018 69732 EGD+Biopsy Single Or Multiple Completed Medical Devices Description No Information Available Encounters Type Date Location Provider Dx Diagnosis Office Visit 12/25/2018 Gastroenterology Pawan Hyde C15.5 Malignant 2:45p [facility] neoplasm of lower third of esophagus 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 (chronic) Office Visit 12/01/2018 Gastroenterology Pawan Hyde, D50.0 Iron deficiency 3:45p [facility] DO anemia secondary to blood loss (chronic) K21.9 Gastro-esophageal reflux disease without esophagitis G70.00 Myasthenia gravis without (acute) exacerbation Assessments Date Code Description Provider 12/25/2018 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 Pawan Riosan , DO 12/25/2018 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 Barrett , DO (chronic) 12/10/2018 D50.9 Iron deficiency anemia, unspecified Pawan Arnoldrdan, DO 12/10/2018 K22.70 Oglesby's esophagus without dysplasia Pawan Riosan, DO 12/01/2018 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 Barrett , DO (chronic) 12/01/2018 K21.9 Gastro-esophageal reflux disease without Pawan Barrett, DO esophagitis 12/01/2018 G70.00 Myasthenia gravis without (acute) exacerbation Pawan Arnoldrdan DO Plan of Treatment No Information Available Functional Status Description No Information Available Mental Status Description No Information Available Referrals Description No Information Available
[2019-04-19 16:54] LABS: ABS Lymphocytes 0.1 10^3/ul (1.0-4.8); ABS Monocytes 0.1 10^3/ul (0-0.8); ABS Neutrophils 3.4 10^3/ul (1.5-7.7); Eosinophil % 0.1 %; Hematocrit 37 % (42-52); Hemoglobin 12.8 g/dL (14.0-18.0); Lymphocyte % 3.3 %; Mean Corpuscular HGB Conc 34 g/dL (31-36); Mean Corpuscular Hemoglobin 32 pg (27-31); Mean Corpuscular Volume 92 fL (80-94); Mean Platelet Volume 7.6 fL (7.4-10.4); Nucleated Red Blood Cells % 0.1; Platelet Count 153 10^3/uL (150-450); Red Blood Count 4.07 10^6 /uL (4.18-5.48); Red Cell Distribution Width 21 % (10-15); White Blood Count 3.6 10^3/uL (3.5-10.8)
[2019-04-19 17:07] LABS: Albumin 3.8 g/dL (3.2-5.2); Albumin/Globulin Ratio 1.6 (1-3); BUN/Creatinine Ratio 16.7 (8-20); C Reactive Protein 5.53 mg/L (<8.01); Calcium 9.2 mg/dL (8.6-10.3); EGFR African American 121.6 (>60); EGFR Non-African American 100.5 (>60); Globulin 2.4 g/dL (2-4); Potassium 5.1 mmol/L (3.5-5.0); Total Bilirubin 0.5 mg/dL (0.2-1.0); Total Protein 6.2 g/dL (6.4-8.9); Troponin I 0.01 ng/mL (<0.03)
--- NOTE | 2019-04-19 17:45 | ED ---
HPI Chest Pain - HPI Summary HPI Summary: Patient is a 64 y/o M presenting to the ED for a chief complaint of chest pain after receiving a chemotherapy treatment on 04/19/19. Patient is present with his . Patient describes the chest pain as a squeezing sensation. He rates his current pain as a 2/10 in severity. His notes he has bilateral LE edema. Patient denies shortness of breath. No aggravating or alleviating factors are reported. PMHx is significant for myasthenia gravis, AAA, and esophageal cancer. PSHx is significant for stent placement in February 2019. FMHx is significant for MA. His last cardiac stress test was several years ago. He is former smoker, but he denies alcohol or drug use. He takes 81 mg of aspirin. He has a cardiology appointment in April 2019. Medications reviewed. Allergies noted. - History of Current Complaint Chief Complaint: EDChestPainROMI Time Seen by Provider: 04/19/19 17:34 Hx Obtained From: Patient, Family/Hvac Engineering Technician - Onset/Duration: Atraumatic, Still Present Timing: Intermittent, Lasting Minutes Initial Severity: Moderate Current Severity: Mild Pain Intensity: 2 Pain Scale Used: 0-10 Numeric Chest Pain Location: Diffuse Chest Pain Radiates: No Character: Pressure/Squeezing Aggravating Factor(s): Nothing Alleviating Factor(s): Nothing Associated Signs and Symptoms: Positive: Chest Pain, Edema - Bilateral LE. Negative: Shortness of Breath - Additional Pertinent History Primary Care Physician: LUIS - Allergy/Home Medications Allergies/Adverse Reactions: Allergies Allergy/AdvReac Type Severity Reaction Status Date / Time amoxicillin Allergy Severe Unknown Verified 02/12/19 17:29 Reaction Details erythromycin base Allergy Unknown Unknown Verified 02/12/19 17:29 Reaction Details PMH/Surg Hx/FS Hx/Imm Hx Previously Healthy: Yes Endocrine/Hematology History: Reports: Hx Anemia - CURRENTLY D/T INTERNAL BEEDING UNDER INVESTIGATION Denies: Hx Bone Marrow Disease, Hx Diabetes, Hx Sickle Cell Disease Cardiovascular History: Reports: Hx Aneurysm - AAA, Hx Hypertension - LISINOPRIL Denies: Hx Pacemaker/ICD, Other Cardiovascular Problems/Disorders Respiratory History: Reports: Hx Sleep Apnea - not diagnosed, observed in PACU Denies: Hx Asthma, Other Respiratory Problems/Disorders GI History: Reports: Hx Gastroesophageal Reflux Disease - OMEPRAZOLE, Hx Hiatal Hernia, Other GI Disorders - NAPOLES'S ESOPHAGUS History: Denies: Hx Kidney Infection, Hx Kidney Stones, Hx Renal Disease, Other Problems/Disorders Musculoskeletal History: Reports: Hx Arthritis - BOTH SHOULDERS, Hx Bursitis - left elbow Denies: Other Musculoskeletal History Sensory History: Reports: Hx Contacts or Glasses - reading Denies: Hx Cataracts, Hx Glaucoma, Hx Hearing Aid Comment Only: Hx Vision Problem - ocular myasthinia gravis Opthamlomology History: Reports: Hx Contacts or Glasses - reading Denies: Hx Cataracts, Hx Glaucoma Comment Only: Hx Vision Problem - ocular myasthinia gravis Neurological History: Reports: Hx Nerve Disease - carpal tunnel both hands, Other Neuro Impairments/Disorders - OCULAR MYASATHENIA GRAVIS Psychiatric History: Denies: Hx Panic Disorder - Cancer History Cancer Type, Location and Year: esophageal Hx Chemotherapy: Yes Hx Radiation Therapy: Yes - Surgical History Surgical History: Yes Surgery Procedure, Year, and Place: GALLBLADDER REMOVED. BOVIAC TUBE PLACED AND REMOVED-18 YEARS AGO. ESOPHOGEAL ABLATION AT [facility]. RIGHT KNEE REPLACEMENT. HEMORRHOID SURGERY, RIGHT KNEE ARTHROSCOPY Hx Anesthesia Reactions: No Infectious Disease History: No Infectious Disease History: Denies: Traveled Outside the [place] in Last 30 Days - Family History Known Family History: Positive: Cardiac Disease - MA - Social History Lives: With Family Alcohol Use: None Hx Substance Use: No Substance Use Type: Reports: None Hx Tobacco Use: Yes Smoking Status (MU): Former Smoker Type: Cigarettes Amount Used/How Often: 1/2-1 PPD X 40 YEARS Have You Smoked in the Last Year: No Review of Systems Positive: Chest Pain Negative: Shortness Of Breath Positive: Edema - Bilateral LE All Other Systems Reviewed And Are Negative: Yes Physical Exam - Summary Physical Exam Summary: Constitutional: Well-developed, Well-nourished, Alert. (-) Distressed Skin: Warm, Dry HENT: Normocephalic; Atraumatic Eyes: Conjunctiva normal Neck: Musculoskeletal ROM normal neck. (-) JVD, (-) Stridor, (-) Tracheal deviation Cardio: Rhythm regular, rate normal, Heart sounds normal; Intact distal pulses; Radial pulses are 2+ and symmetric. (-) Murmur Pulmonary/Chest wall: Effort normal. (-) Respiratory distress, (-) Wheezes, (-) Rales Abd: Soft, (-) tenderness, (-) Distension, (-) Guarding, (-) Rebound Musculoskeletal: 1+ pitting edema bilaterally. Good pulses bilaterally in radius , No calf tenderness, No venous cords, No pain with dorsiflexion of foot. Lymph: (-) Cervical adenopathy Neuro: Alert, Oriented x3 Psych: Mood and affect Normal Triage Information Reviewed: Yes Vital Signs On Initial Exam: Initial Vitals Temp Pulse Resp BP Pulse Ox 98.1 F 75 20 123/84 97 04/19/19 14:20 04/19/19 14:20 04/19/19 14:20 04/19/19 14:20 04/19/19 14:20 Vital Signs Reviewed: Yes Procedures - Sedation Patient Received Moderate/Deep Sedation with Procedure: No Diagnostics - Vital Signs Vital Signs Temp Pulse Resp BP Pulse Ox 04/19/19 16:15 97.6 F 89 18 147/91 92 04/19/19 14:20 98.1 F 75 20 123/84 97 - Laboratory Lab Results: Lab Results 04/19/19 04/19/19 Range/Units 16:28 16:28 WBC 3.6 (3.5-10.8) 10^3/uL RBC 4.07 L (4.18-5.48) 10^6 /uL Hgb 12.8 L (14.0-18.0) g/dL Hct 37 L (42-52) % MCV 92 (80-94) fL MCH 32 H (27-31) pg MCHC 34 (31-36) g/dL RDW 21 H (10-15) % Plt Count 153 (150-450) 10^3/uL MPV 7.6 (7.4-10.4) fL Neut % (Auto) 93.1 % Lymph % (Auto) 3.3 % [place] % (Auto) 3.2 % Eos % (Auto) 0.1 % Baso % (Auto) 0.3 % Absolute Neuts (auto) 3.4 (1.5-7.7) 10^3/ul Absolute Lymphs (auto) 0.1 L (1.0-4.8) 10^3/ul Absolute Monos (auto) 0.1 (0-0.8) 10^3/ul Absolute Eos (auto) 0.0 (0-0.6) 10^3/ul Absolute Basos (auto) 0.0 (0-0.2) 10^3/ul Absolute Nucleated RBC 0.0 10^3/ul Nucleated RBC % 0.1 Sodium 138 (135-145) mmol/L Potassium 5.1 H (3.5-5.0) mmol/L Chloride 105 (101-111) mmol/L Carbon Dioxide 29 (22-32) mmol/L Anion Gap 4 (2-11) mmol/L BUN 13 (6-24) mg/dL Creatinine 0.78 (0.67-1.17) mg/dL Est GFR ( Amer) 121.6 (>60) Est GFR (Non-Af Amer) 100.5 (>60) BUN/Creatinine Ratio 16.7 (8-20) Glucose 115 H (70-100) mg/dL Calcium 9.2 (8.6-10.3) mg/dL Total Bilirubin 0.50 (0.2-1.0) mg/dL AST 23 (13-39) U/L ALT 24 (7-52) U/L Alkaline Phosphatase 68 (34-104) U/L Troponin I 0.01 (<0.03) ng/mL C-Reactive Protein 5.53 (<8.01) mg/L Total Protein 6.2 L (6.4-8.9) g/dL Albumin 3.8 (3.2-5.2) g/dL Globulin 2.4 (2-4) g/dL Albumin/Globulin Ratio 1.6 (1-3) Lipase 10 L (11.0-82.0) U/L Result Diagrams: 04/19/19 16:28 04/19/19 16:28 Lab Statement: Any lab studies that have been ordered have been reviewed, and results considered in the medical decision making process. - CT Chest/Thorax CTA CT Interpretation Completed By: Radiologist Summary of CT Findings: Chest/Thorax CTA IMPRESSION: 1. There is no evidence of pulmonary embolus to the third order branch level, but smaller peripheral vessels cannot be assessed due to motion artifact. 2. Coronary artery disease. 3. Moderate hiatal hernia, similar to prior. Assessment of lumen is limited by lack of oral contrast. 4. Post cholecystectomy. 5. Other nonemergent findings as above. Reviewed by Dr. Hodges. - EKG 14:09:16 Cardiac Rate: NL - 80 BPM EKG Rhythm: Sinus Rhythm ST Segment: Normal Ectopy: None Summary of EKG Findings: EKG at 14:09:16 shows normal sinus rhythm with 80 BPM, multiple PVCS, no STEMI. Reviewed and interpreted by Dr. Hodges. 14:09:57 Cardiac Rate: NL - 66 BPM EKG Rhythm: Sinus Rhythm ST Segment: Normal Ectopy: None Summary of EKG Findings: EKG at 14:09:57 shows normal sinus rhythm with 66 BPM, no STEMI. Reviewed and interpreted by Dr. Hodges. Chest Pain Course/Dx - Course Course Of Treatment: Patient is here with an episode of chest pain that occurred while receiving chemotherapy. Patient had an EKG which showed no evidence of ischemia. Patient had serial troponins which were negative. Patient had a CTA which was negative for PE. Patient has a heart score of 3 and is discharged with outpatient follow-up with Dr. Restrepo - Diagnoses Provider Diagnoses: Chest pain, Esophageal cancer Discharge ED - Sign-Out/Discharge Documenting (check all that apply): Patient Departure - Discharge - Discharge Plan Condition: Stable Disposition: HOME Patient Education Materials: Chest Pain (ED) Referrals: Anh WORKMAN,José Barnes [Primary Care Provider] - Caren Restrepo MD [Medical Doctor] - Additional Instructions: Please call Dr. Restrepo tomorrow to set up an appointment for possible stress test Please return immediately if you have severe chest pain, trouble breathing, any other concerning symptoms - Billing Disposition and Condition Condition: STABLE Disposition: Home - Attestation Statements Document Initiated by Scribe: Yes Documenting Scribe: Karen Woods Provider For Whom Min is Documenting (Include Credential): Kenrick Hodges MD Scribe Attestation: Karen Erickson, scribed for Kenrick Hodges MD on 04/19/19 at 2143. Scribe Documentation Reviewed: Yes Provider Attestation: The documentation as recorded by the Karen arevalo accurately reflects the service I personally performed and the decisions made by me, Kenrick Hodges MD Status of Scribe Document: Viewed
[2019-04-19] MEDS ORDERED: Iohexol 350* (CONTRAST) 500 ML MDV IV ONE (17:56)
[2019-04-19 21:50] VITALS: BP 119/84
== END 2019-04-19 21:45 | disposition home or self-care (01) ==
LOC: ED 14:04
DX: R07.9 Chest pain, unspecified (principal); C15.9 Malignant neoplasm of esophagus, unspecified; D64.9 Anemia, unspecified; I10 Essential (primary) hypertension; K21.9 Gastro-esophageal reflux disease without esophagitis; Z96.651 Presence of right artificial knee joint; Z90.49 Acquired absence of other specified parts of digestive tract; Z87.891 Personal history of nicotine dependence; Z79.82 Long term (current) use of aspirin; Z79.899 Other long term (current) drug therapy; Z88.0 Allergy status to penicillin; Z88.1 Allergy status to other antibiotic agents
CPT/HCPCS: 36415; 71275; 80053; 83690; 83880; 84484; 85025; 86140; 93005; 99284; Q9967